=== PATIENT | female | born 1955 | race Caucasian/White ===

== ENCOUNTER 2017-06-21 12:53 | Inpatient (IN) | payer MEDICARE, MEDICAID ==
[~2017-06-21] VITALS: Ht 170.2 cm; Wt 130.2 kg
[~2017-06-21 12:53] MED LIST: CLNZ.5T; DARI7.5T2; FENO145T; GLPZ10TCR; KCL10CCR; LVT.05T; NF-DDA0.2T; PEROXICAM; ULTRAM ER
[2017-06-21] MEDS ORDERED: ASPIRIN 325 MG (5 GR) TABLET PO ONE (15:45)
[2017-06-21] MEDS ORDERED: HYDROcodone/APAP 5 MG/325 MG (LORTAB) TAB PO PRN (15:45)
[2017-06-21] MEDS ORDERED: ACETAMINOPHEN 500 MG TAB (TYLENOL) PO PRN (15:45)
[2017-06-21] MEDS ORDERED: ALPRAZolam 0.25 MG (XANAX) TAB PO PRN (15:45)
[2017-06-21] MEDS ORDERED: ONDANSETRON 4 MG/2 ML (SDV) Z0FRAN IVP PRN (15:45)
[2017-06-21] MEDS ORDERED: fentaNYL INJECTION 100 MCG/2 ML AMP IVP PRN (15:45)
[2017-06-21] MEDS ORDERED: DOCUSATE SODIUM 100 MG (COLACE) CAP PO PRN (15:45)
[2017-06-21 17:30] VITALS: BP 128/88
--- OUTSIDE RECORDS SUMMARY | 2017-06-21 17:42 | XMS REPORT ---
Author Author EDILIA JOHNSON [facility] eClinicalWorks Address Unknown Phone Unavailable Care Team Providers Care Skin Lap Bonder Name Role Phone EDILIA JOHNSON CP Unavailable Allergies No Known Allergies Problems Problem Type Condition Code Onset Dates Condition Status Problem Shortness of breath 786.05 Active Problem Esophageal reflux 530.81 Active Problem Other specified conditions influencing health status V49.89 Active Problem Restless legs syndrome [RLS] 333.94 Active Problem Unspecified arthropathy, site unspecified 716.90 Active Problem Chronic kidney disease (CKD) 585 Active Problem Unspecified myalgia and myositis 729.1 Active Problem Urinary tract infection, site not specified 599.0 Active Problem Generalized hyperhidrosis 780.8 Active Problem Palpitations 785.1 Active Assessment Adjustment disorder with mixed anxiety and depressed mood F43.23 Active Problem Proteinuria 791.0 Active Problem Polyneuropathy in diabetes 357.2 Active Problem Obesity, unspecified 278.00 Active Medications No Known Medications Procedures Procedure Coding System Code Date Psych diagnostic evaluation, new patient CPT-4 33959 Dec 24, 2014 Results No Known Results Summary Purpose eClinicalWorks Submission
--- OUTSIDE RECORDS SUMMARY | 2017-06-21 17:43 | XMS REPORT | Continuity of Care Document ---
Author Author [facility] Address Unknown Phone Unavailable Allergies Active Description Code Type Severity Reaction Onset Reported/Identified Relationship to Patient Clinical Status Yes lovastatin Drug Allergy N/A N/A 05/20/2008 Yes lovastatin Drug Allergy 05/20/2008 Yes ibuprofen Drug Allergy N/A N/A 10/04/2009 Yes piroxicam Drug Allergy N/A N/A 10/04/2009 Yes ibuprofen Drug Allergy 10/04/2009 Yes piroxicam Drug Allergy 10/04/2009 Yes Actos 30 mg tablet Drug Allergy N/A N/A 11/08/2011 Yes Actos 30 mg tablet Drug Allergy 11/08/2011 Medications There is no data. Problems Date Dx Coded Attending Type Code Diagnosis Diagnosed By 09/17/2007 TONY OLVERA DO 250.02 DIABETES MELLITUS POORLY CONTROLLED 09/17/2007 TONY OLVERA DO K 250.02 DIABETES MELLITUS POORLY CONTROLLED 09/17/2007 TONY OLVERA DO K 250.02 DIABETES MELLITUS POORLY CONTROLLED 09/17/2007 250.02 DIABETES MELLITUS POORLY CONTROLLED 09/17/2007 250.02 DIABETES MELLITUS POORLY CONTROLLED 09/17/2007 FUAD PATTERSON APRN 250.02 DIABETES MELLITUS POORLY CONTROLLED 09/17/2007 TONY OLVERA DO 250.02 DIABETES MELLITUS POORLY CONTROLLED 09/17/2007 TONY OLVERA DO K 250.02 DIABETES MELLITUS POORLY CONTROLLED 09/17/2007 TONIE OLVERA DOA K 250.02 DIABETES MELLITUS POORLY CONTROLLED 09/17/2007 TONIE OLVERA DOA K 250.02 DIABETES MELLITUS POORLY CONTROLLED 09/17/2007 TONIE OLVERA DOA K 250.02 DIABETES MELLITUS POORLY CONTROLLED 09/17/2007 TONIE OLVERA DOA K 250.02 DIABETES MELLITUS POORLY CONTROLLED 09/17/2007 TONIE OLVERA DOA K 250.02 DIABETES MELLITUS POORLY CONTROLLED 09/17/2007 TONIE OLVERA DOA K 250.02 DIABETES MELLITUS POORLY CONTROLLED 11/19/2007 TONY OLVERA DO 724.5 Backache Unspecified 11/19/2007 OLVERA DO, TONY K 724.5 Backache Unspecified 11/19/2007 OLVERA DO, TONY K 724.5 Backache Unspecified 11/19/2007 724.5 Backache Unspecified 11/19/2007 724.5 Backache Unspecified 11/19/2007 LEONARDO PAZ, FUAD A 724.5 Backache Unspecified 11/19/2007 OLVERA DO, TONY K 724.5 Backache Unspecified 11/19/2007 OLVERA DO, TONY K 724.5 Backache Unspecified 11/19/2007 OLVERA DO, TONY K 724.5 Backache Unspecified 11/19/2007 OLVERA DO, TONY K 724.5 Backache Unspecified 11/19/2007 OLVERA DO, TONY K 724.5 Backache Unspecified 11/19/2007 OLVERA DO, TONY K 724.5 Backache Unspecified 11/19/2007 OLVERA DO, TONY K 724.5 Backache Unspecified 11/19/2007 OLVERA DO, TONY K 724.5 Backache Unspecified 01/21/2008 OLVERA DO, TONY K 599.0 Urinary Tract Infection 01/21/2008 OLVERA DO, TONY K 599.0 Urinary Tract Infection 01/21/2008 OLVERA DO, TONY K 599.0 Urinary Tract Infection 01/21/2008 599.0 Urinary Tract Infection 01/21/2008 599.0 Urinary Tract Infection 01/21/2008 LEONARDO PAZ, FUAD A 599.0 Urinary Tract Infection 01/21/2008 OLVERA DO, TONY K 599.0 Urinary Tract Infection 01/21/2008 OLVERA DO, TONY K 599.0 Urinary Tract Infection 01/21/2008 OLVERA DO, TONY K 599.0 Urinary Tract Infection 01/21/2008 OLVERA DO, TONY K 599.0 Urinary Tract Infection 01/21/2008 OLVERA DO, TONY K 599.0 Urinary Tract Infection 01/21/2008 OLVERA DO, TONY K 599.0 Urinary Tract Infection 01/21/2008 OLVERA DO, TONY K 599.0 Urinary Tract Infection 01/21/2008 OLVERA DO, TONY K 599.0 Urinary Tract Infection 02/25/2008 OLVERA DO, TONY K 682.9 Cellulitis 02/25/2008 OLVERA DO, TONY K 682.9 Cellulitis 02/25/2008 OLVERA DO, TONY K 682.9 Cellulitis 02/25/2008 682.9 Cellulitis 02/25/2008 682.9 Cellulitis 02/25/2008 FUAD PATTERSON APRN A 682.9 Cellulitis 02/25/2008 OLVERA DO, TONY K 682.9 Cellulitis 02/25/2008 OLVERA DO, TONY K 682.9 Cellulitis 02/25/2008 OLVERA DO, TONY K 682.9 Cellulitis 02/25/2008 OLVERA DO, TONY K 682.9 Cellulitis 02/25/2008 OLVERA DO, TONY K 682.9 Cellulitis 02/25/2008 OLVERA DO, TONY K 682.9 Cellulitis 02/25/2008 OLVERA DO, TONY K 682.9 Cellulitis 02/25/2008 OLVERA DO, TONY K 682.9 Cellulitis 02/29/2008 OLVERA DO, TONY K V58.31 Wound Dressing 02/29/2008 OLVERA DO, TONY K V58.31 Wound Dressing 02/29/2008 OLVERA DO, TONY K V58.31 Wound Dressing 02/29/2008 V58.31 Wound Dressing 02/29/2008 V58.31 Wound Dressing 02/29/2008 FUAD PATTERSON APRN A V58.31 Wound Dressing 02/29/2008 OLVERA DO, TONY K V58.31 Wound Dressing 02/29/2008 OLVERA DO, TONY K V58.31 Wound Dressing 02/29/2008 OLVERA DO, TONY K V58.31 Wound Dressing 02/29/2008 OLVERA DO, TONY K V58.31 Wound Dressing 02/29/2008 OLVERA DO, TONY K V58.31 Wound Dressing 02/29/2008 OLVERA DO, TONY K V58.31 Wound Dressing 02/29/2008 OLVERA DO, TONY K V58.31 Wound Dressing 02/29/2008 OLVERA DO, TONY K V58.31 Wound Dressing 07/10/2008 OLVERA DO, TONY K 380.10 Otitis Externa - Right Ear 07/10/2008 OLVERA DO, TONY K 388.70 Earache Right Ear 07/10/2008 OLVERA DO, TONY K 380.10 Otitis Externa - Right Ear 07/10/2008 OLVERA DO, TONY K 388.70 Earache Right Ear 07/10/2008 OLVERA DO, TONY K 380.10 Otitis Externa - Right Ear 07/10/2008 OLVERA DO, TONY K 388.70 Earache Right Ear 07/10/2008 380.10 Otitis Externa - Right Ear 07/10/2008 388.70 Earache Right Ear 07/10/2008 380.10 Otitis Externa - Right Ear 07/10/2008 388.70 Earache Right Ear 07/10/2008 LEONARDO MANAGER FITNESS, FUAD A 380.10 Otitis Externa - Right Ear 07/10/2008 LEONARDO MANAGER FITNESS, FUAD A 388.70 Earache Right Ear 07/10/2008 OLVERA DO, TONY K 380.10 Otitis Externa - Right Ear 07/10/2008 OLVERA DO, TONY K 388.70 Earache Right Ear 07/10/2008 OLVERA DO, TONY K 380.10 Otitis Externa - Right Ear 07/10/2008 OLVERA DO, TONY K 388.70 Earache Right Ear 07/10/2008 OLVERA DO, TONY K 380.10 Otitis Externa - Right Ear 07/10/2008 OLVERA DO, TONY K 388.70 Earache Right Ear 07/10/2008 OLVERA DO, TONY K 380.10 Otitis Externa - Right Ear 07/10/2008 OLVERA DO, TONY K 388.70 Earache Right Ear 07/10/2008 OLVERA DO, TONY K 380.10 Otitis Externa - Right Ear 07/10/2008 OLVERA DO, TONY K 388.70 Earache Right Ear 07/10/2008 OLVERA DO, TONY K 380.10 Otitis Externa - Right Ear 07/10/2008 OLVERA DO, TONY K 388.70 Earache Right Ear 07/10/2008 OLVERA DO, TONY K 380.10 Otitis Externa - Right Ear 07/10/2008 OLVERA DO, TONY K 388.70 Earache Right Ear 07/10/2008 OLVERA DO, TONY K 380.10 Otitis Externa - Right Ear 07/10/2008 OLVERA DO, TONY K 388.70 Earache Right Ear 08/20/2008 OLVERA DO, TONY K 244.9 HYPOTHYROIDISM 08/20/2008 OLVERA DO, TONY K 244.9 HYPOTHYROIDISM 08/20/2008 OLVERA DO, TONY K 244.9 HYPOTHYROIDISM 08/20/2008 244.9 HYPOTHYROIDISM 08/20/2008 244.9 HYPOTHYROIDISM 08/20/2008 LEONARDO PAZ FUAD A 244.9 HYPOTHYROIDISM 08/20/2008 OLVERA DO, TONY K 244.9 HYPOTHYROIDISM 08/20/2008 OLVERA DO, TONY K 244.9 HYPOTHYROIDISM 08/20/2008 OLVERA DO, TONY K 244.9 HYPOTHYROIDISM 08/20/2008 OLVERA DO, TONY K 244.9 HYPOTHYROIDISM 08/20/2008 OLVERA DO, TONY K 244.9 HYPOTHYROIDISM 08/20/2008 OLVERA DO, TONY K 244.9 HYPOTHYROIDISM 08/20/2008 OLVERA DO, TONY K 244.9 HYPOTHYROIDISM 08/20/2008 OLVERA DO, TONY K 244.9 HYPOTHYROIDISM 02/11/2009 OLVERA DO, TONY K 250.00 DIABETES MELLITUS 02/11/2009 OLVERA DO, TONY K 250.00 DIABETES MELLITUS 02/11/2009 OLVERA DO, TONY K 250.00 DIABETES MELLITUS POORLY CONTROLLED 02/11/2009 250.00 DIABETES MELLITUS POORLY CONTROLLED 02/11/2009 250.00 DIABETES MELLITUS POORLY CONTROLLED 02/11/2009 FUAD PATTERSON APRN A 250.00 DIABETES MELLITUS POORLY CONTROLLED 02/11/2009 OLVERA DO, TONY K 250.00 DIABETES MELLITUS POORLY CONTROLLED 02/11/2009 OLVERA DO, TONY K 250.00 DIABETES MELLITUS POORLY CONTROLLED 02/11/2009 OLVERA DO, TONY K 250.00 DIABETES MELLITUS POORLY CONTROLLED 02/11/2009 OLVERA DO, TONY K 250.00 DIABETES MELLITUS POORLY CONTROLLED 02/11/2009 OLVERA DO, TONY K 250.00 DIABETES MELLITUS POORLY CONTROLLED 02/11/2009 OLVERA DO, TONY K 250.00 DIABETES MELLITUS POORLY CONTROLLED 02/11/2009 OLVERA DO, TONY K 250.00 DIABETES MELLITUS POORLY CONTROLLED 02/11/2009 OLVERA DO, TONY K 250.00 DIABETES MELLITUS 04/23/2009 OLVERA DO, TONY K 480.8 Pneumonia Due To Other Virus Not Elsewhere Classified 04/23/2009 OLVERA DO, TONY K 780.6 FEVER 04/23/2009 OLVERA DO, TONY K 786.2 Cough 04/23/2009 OLVERA DO, TONY K 480.8 Pneumonia Due To Other Virus Not Elsewhere Classified 04/23/2009 OLVERA DO, TONY K 780.6 FEVER 04/23/2009 OLVERA DO, TONY K 786.2 Cough 04/23/2009 OLVERA DO, TONY K 480.8 Pneumonia Due To Other Virus Not Elsewhere Classified 04/23/2009 OLVERA DO, TONY K 780.6 FEVER 04/23/2009 OLVERA DO, TONY K 786.2 Cough 04/23/2009 480.8 Pneumonia Due To Other Virus Not Elsewhere Classified 04/23/2009 780.6 FEVER 04/23/2009 786.2 Cough 04/23/2009 480.8 Pneumonia Due To Other Virus Not Elsewhere Classified 04/23/2009 780.6 FEVER 04/23/2009 786.2 Cough 04/23/2009 LEONARDO MANAGER FITNESS, FUAD A 480.8 Pneumonia Due To Other Virus Not Elsewhere Classified 04/23/2009 LEONARDO MANAGER FITNESS, FUAD A 780.6 FEVER 04/23/2009 LEONARDO MANAGER FITNESS, FUAD A 786.2 Cough 04/23/2009 OLVERA DO, TONY K 480.8 Pneumonia Due To Other Virus Not Elsewhere Classified 04/23/2009 OLVERA DO, TONY K 780.6 FEVER 04/23/2009 OLVERA DO, TONY K 786.2 Cough 04/23/2009 OLVERA DO, TONY K 480.8 Pneumonia Due To Other Virus Not Elsewhere Classified 04/23/2009 OLVERA DO, TONY K 780.6 FEVER 04/23/2009 OLVERA DO, TONY K 786.2 Cough 04/23/2009 OLVERA DO, TONY K 480.8 Pneumonia Due To Other Virus Not Elsewhere Classified 04/23/2009 OLVERA DO, TONY K 780.6 FEVER 04/23/2009 OLVERA DO, TONY K 786.2 Cough 04/23/2009 OLVERA DO, TONY K 480.8 Pneumonia Due To Other Virus Not Elsewhere Classified 04/23/2009 OLVERA DO, TONY K 780.6 FEVER 04/23/2009 OLVERA DO, TONY K 786.2 Cough 04/23/2009 OLVERA DO, TONY K 480.8 Pneumonia Due To Other Virus Not Elsewhere Classified 04/23/2009 OLVERA DO, TONY K 780.6 FEVER 04/23/2009 OLVERA DO, TONY K 786.2 Cough 04/23/2009 OLVERA DO, TONY K 480.8 Pneumonia Due To Other Virus Not Elsewhere Classified 04/23/2009 OLVERA DO, TONY K 780.6 FEVER 04/23/2009 OLVERA DO, TONY K 786.2 Cough 04/23/2009 OLVERA DO, TONY K 480.8 Pneumonia Due To Other Virus Not Elsewhere Classified 04/23/2009 OLVERA DO, TONY K 780.6 FEVER 04/23/2009 OLVERA DO, TONY K 786.2 Cough 04/23/2009 OLVERA DO, TONY K 480.8 Pneumonia Due To Other Virus Not Elsewhere Classified 04/23/2009 OLVERA DO, TONY K 780.6 FEVER 04/23/2009 OLVERA DO, TONY K 786.2 Cough 05/21/2009 OLVERA DO, TONY K 788.41 Urinary Frequency Increased 05/21/2009 OLVERA DO, TONY K 788.41 Urinary Frequency Increased 05/21/2009 OLVERA DO, TONY K 788.41 Urinary Frequency Increased 05/21/2009 788.41 Urinary Frequency Increased 05/21/2009 788.41 Urinary Frequency Increased 05/21/2009 FUAD PATTERSON APRN 788.41 Urinary Frequency Increased 05/21/2009 OLVERA DO, TONY K 788.41 Urinary Frequency Increased 05/21/2009 OLVERA DO, TONY K 788.41 Urinary Frequency Increased 05/21/2009 OLVERA DO, TONY K 788.41 Urinary Frequency Increased 05/21/2009 OLVERA DO, TONY K 788.41 Urinary Frequency Increased 05/21/2009 OLVERA DO, TONY K 788.41 Urinary Frequency Increased 05/21/2009 OLVERA DO, TONY K 788.41 Urinary Frequency Increased 05/21/2009 OLVERA DO, TONY K 788.41 Urinary Frequency Increased 05/21/2009 OLVERA DO, TONY K 788.41 Urinary Frequency Increased 06/10/2009 OLVERA DO, TONY K 250.8 ULCER DIABETIC LOWER LIMB ALL 06/10/2009 OLVERA DO, TONY K 788.30 Urinary Loss Of Control 06/10/2009 OLVERA DO, TOYN K 788.63 Feelings Of Urinary Urgency 06/10/2009 OLVERA DO, TONY K 250.8 ULCER DIABETIC LOWER LIMB ALL 06/10/2009 OLVERA DO, TONY K 788.30 Urinary Loss Of Control 06/10/2009 OLVERA DO, TONY K 788.63 Feelings Of Urinary Urgency 06/10/2009 OLVERA DO, TONY K 250.8 ULCER DIABETIC LOWER LIMB ALL 06/10/2009 OLVERA DO, TONY K 788.30 Urinary Loss Of Control 06/10/2009 OLVERA DO, TONY K 788.63 Feelings Of Urinary Urgency 06/10/2009 250.8 ULCER DIABETIC LOWER LIMB ALL 06/10/2009 788.30 Urinary Loss Of Control 06/10/2009 788.63 Feelings Of Urinary Urgency 06/10/2009 250.8 ULCER DIABETIC LOWER LIMB ALL 06/10/2009 788.30 Urinary Loss Of Control 06/10/2009 788.63 Feelings Of Urinary Urgency 06/10/2009 LEONARDO MANAGER FITNESS, FUAD A 250.8 ULCER DIABETIC LOWER LIMB ALL 06/10/2009 LEONARDO MANAGER FITNESS, FUAD A 788.30 Urinary Loss Of Control 06/10/2009 LEONARDO MANAGER FITNESS, FUAD A 788.63 Feelings Of Urinary Urgency 06/10/2009 OLVERA DO, TONY K 250.8 ULCER DIABETIC LOWER LIMB ALL 06/10/2009 OLVERA DO, TONY K 788.30 Urinary Loss Of Control 06/10/2009 OLVERA DO, TONY K 788.63 Feelings Of Urinary Urgency 06/10/2009 OLVERA DO, TONY K 250.8 ULCER DIABETIC LOWER LIMB ALL 06/10/2009 OLEVRA DO, TONY K 788.30 Urinary Loss Of Control 06/10/2009 OLVERA DO, TONY K 788.63 Feelings Of Urinary Urgency 06/10/2009 OLVERA DO, TONY K 250.8 ULCER DIABETIC LOWER LIMB ALL 06/10/2009 OLVERA DO, TONY K 788.30 Urinary Loss Of Control 06/10/2009 OLVERA DO, TONY K 788.63 Feelings Of Urinary Urgency 06/10/2009 OLVERA DO, TONY K 250.8 ULCER DIABETIC LOWER LIMB ALL 06/10/2009 OLVERA DO, TONY K 788.30 Urinary Loss Of Control 06/10/2009 OLVERA DO, TONY K 788.63 Feelings Of Urinary Urgency 06/10/2009 OLVERA DO, TONY K 250.8 ULCER DIABETIC LOWER LIMB ALL 06/10/2009 OLVERA DO, TONY K 788.30 Urinary Loss Of Control 06/10/2009 OLVERA DO, TONY K 788.63 Feelings Of Urinary Urgency 06/10/2009 OLVERA DO, TONY K 250.8 ULCER DIABETIC LOWER LIMB ALL 06/10/2009 OLVEAR DO, TONY K 788.30 Urinary Loss Of Control 06/10/2009 OLVERA DO, TONY K 788.63 Feelings Of Urinary Urgency 06/10/2009 OLVERA DO, TONY K 250.8 ULCER DIABETIC LOWER LIMB ALL 06/10/2009 OLVERA DO, TONY K 788.30 Urinary Loss Of Control 06/10/2009 OLVERA DO, TONY K 788.63 Feelings Of Urinary Urgency 06/10/2009 OLVERA DO, TONY K 250.8 ULCER DIABETIC LOWER LIMB ALL 06/10/2009 OLVERA DO, TONY K 788.30 Urinary Loss Of Control 06/10/2009 OLVERA DO, TONY K 788.63 Feelings Of Urinary Urgency 06/25/2009 OLVERA DO, TONY K 250.60 DIABETES WITH NEUROLOGICAL MANIFESTATIONS, TYPE II OR UNSPECIFIED TYPE, NOT STATED UNCONTROLLED 06/25/2009 OLVERA DO, TONY K 757.39 POROKEROTOSIS 06/25/2009 OLVERA DO, TONY K 250.60 DIABETES WITH NEUROLOGICAL MANIFESTATIONS, TYPE II OR UNSPECIFIED TYPE, NOT STATED UNCONTROLLED 06/25/2009 OLVERA DO, TONY K 757.39 POROKEROTOSIS 06/25/2009 OLVERA DO, TONY K 250.60 DIABETES WITH NEUROLOGICAL MANIFESTATIONS, TYPE II OR UNSPECIFIED TYPE, NOT STATED UNCONTROLLED 06/25/2009 OLVERA DO, TONY K 757.39 POROKEROTOSIS 06/25/2009 250.60 DIABETES WITH NEUROLOGICAL MANIFESTATIONS, TYPE II OR UNSPECIFIED TYPE, NOT STATED UNCONTROLLED 06/25/2009 757.39 POROKEROTOSIS 06/25/2009 250.60 DIABETES WITH NEUROLOGICAL MANIFESTATIONS, TYPE II OR UNSPECIFIED TYPE, NOT STATED UNCONTROLLED 06/25/2009 757.39 POROKEROTOSIS 06/25/2009 FUAD PATTERSON APRN A 250.60 DIABETES WITH NEUROLOGICAL MANIFESTATIONS, TYPE II OR UNSPECIFIED TYPE, NOT STATED UNCONTROLLED 06/25/2009 FUAD PATTERSON APRN A 757.39 POROKEROTOSIS 06/25/2009 OLVERA DO, TONY K 250.60 DIABETES MELLITUS DIABETIC PERIPHERAL NEUROPATHY 06/25/2009 OLVERA DO, TONY K 757.39 POROKEROTOSIS 06/25/2009 OLVERA DO, TONY K 250.60 DIABETES MELLITUS DIABETIC PERIPHERAL NEUROPATHY 06/25/2009 OLVERA DO, TONY K 757.39 POROKEROTOSIS 06/25/2009 OLVERA DO, TONY K 250.60 DIABETES MELLITUS DIABETIC PERIPHERAL NEUROPATHY 06/25/2009 OLVERA DO, TONY K 757.39 POROKEROTOSIS 06/25/2009 OLVERA DO, TONY K 250.60 DIABETES MELLITUS DIABETIC PERIPHERAL NEUROPATHY 06/25/2009 OLVERA DO, TONY K 757.39 POROKEROTOSIS 06/25/2009 OLVERA DO, TONY K 250.60 DIABETES MELLITUS DIABETIC PERIPHERAL NEUROPATHY 06/25/2009 OLVERA DO, TONY K 757.39 POROKEROTOSIS 06/25/2009 OLVERA DO, TONY K 250.60 DIABETES MELLITUS DIABETIC PERIPHERAL NEUROPATHY 06/25/2009 OLVERA DO, TONY K 757.39 POROKEROTOSIS 06/25/2009 OLVERA DO, TONY K 250.60 DIABETES MELLITUS DIABETIC PERIPHERAL NEUROPATHY 06/25/2009 OLVERA DO, TONY K 757.39 POROKEROTOSIS 06/25/2009 OLVERA DO, TONY K 250.60 DIABETES WITH NEUROLOGICAL MANIFESTATIONS, TYPE II OR UNSPECIFIED TYPE, NOT STATED UNCONTROLLED 06/25/2009 OLVERA DO, TONY K 757.39 POROKEROTOSIS 10/11/2009 OLVERA DO, TONY K 585.9 CHRONIC KIDNEY DISEASE, UNSPECIFIED 10/11/2009 OLVERA DO, TONY K 791.0 Proteinuria 10/11/2009 OLVERA DO, TONY K 585.9 CHRONIC KIDNEY DISEASE, UNSPECIFIED 10/11/2009 OLVERA DO, TONY K 791.0 Proteinuria 10/11/2009 OLVERA DO, TONY K 585.9 CHRONIC RENAL FAILURE 10/11/2009 OLVERA DO, TONY K 791.0 Proteinuria 10/11/2009 585.9 CHRONIC RENAL FAILURE 10/11/2009 791.0 Proteinuria 10/11/2009 585.9 CHRONIC RENAL FAILURE 10/11/2009 791.0 Proteinuria 10/11/2009 LEONARDO MANAGER [employer], FUAD A 585.9 CHRONIC RENAL FAILURE 10/11/2009 LEONARDO MANAGER FITNESS, FUAD A 791.0 Proteinuria 10/11/2009 OLVERA DO, TONY K 585.9 CHRONIC RENAL FAILURE 10/11/2009 OLVERA DO, TONY K 791.0 Proteinuria 10/11/2009 OLVERA DO, TONY K 585.9 CHRONIC RENAL FAILURE 10/11/2009 OLVERA DO, TONY K 791.0 Proteinuria 10/11/2009 OLVERA DO, TONY K 585.9 CHRONIC RENAL FAILURE 10/11/2009 OLVERA DO, TONY K 791.0 Proteinuria 10/11/2009 OLVERA DO, TONY K 585.9 CHRONIC RENAL FAILURE 10/11/2009 OLVERA DO, TONY K 791.0 Proteinuria 10/11/2009 OLVERA DO, TONY K 585.9 CHRONIC RENAL FAILURE 10/11/2009 OLVERA DO, TONY K 791.0 Proteinuria 10/11/2009 OLVERA DO, TONY K 585.9 CHRONIC RENAL FAILURE 10/11/2009 OLVERA DO, TONY K 791.0 Proteinuria 10/11/2009 OLVERA DO, TONY K 585.9 CHRONIC RENAL FAILURE 10/11/2009 OLVERA DO, TONY K 791.0 Proteinuria 10/11/2009 OLVERA DO, TONY K 585.9 CHRONIC KIDNEY DISEASE, UNSPECIFIED 10/11/2009 OLVERA DO, TONY K 791.0 Proteinuria 10/12/2009 OLVERA DO, TONY K 250.40 NEPHROPATHY DIABETIC 10/12/2009 OLVERA DO, TONY K 250.40 NEPHROPATHY DIABETIC 10/12/2009 OLVERA DO, TONY K 250.40 NEPHROPATHY DIABETIC 10/12/2009 250.40 NEPHROPATHY DIABETIC 10/12/2009 250.40 NEPHROPATHY DIABETIC 10/12/2009 FUAD PATTERSON APRN 250.40 NEPHROPATHY DIABETIC 10/12/2009 OLVERA DO, TONY K 250.40 NEPHROPATHY DIABETIC 10/12/2009 OLVERA DO, TONY K 250.40 NEPHROPATHY DIABETIC 10/12/2009 OLVERA DO, TONY K 250.40 NEPHROPATHY DIABETIC 10/12/2009 OLVERA DO, TONY K 250.40 NEPHROPATHY DIABETIC 10/12/2009 OLVERA DO, TONY K 250.40 NEPHROPATHY DIABETIC 10/12/2009 OLVERA DO, TONY K 250.40 NEPHROPATHY DIABETIC 10/12/2009 OLVERA DO, TONY K 250.40 NEPHROPATHY DIABETIC 10/12/2009 OLVERA DO, TONY K 250.40 NEPHROPATHY DIABETIC 04/14/2010 OLVERA DO, TONY K 719.41 Shoulder Joint Pain 04/14/2010 OLVERA DO, TONY K 719.41 Shoulder Joint Pain 04/14/2010 OLVERA DO, TONY K 719.41 Shoulder Joint Pain 04/14/2010 719.41 Shoulder Joint Pain 04/14/2010 719.41 Shoulder Joint Pain 04/14/2010 FUAD PATTERSON APRN A 719.41 Shoulder Joint Pain 04/14/2010 OLVERA DO, TONY K 719.41 Shoulder Joint Pain 04/14/2010 OLVERA DO, TONY K 719.41 Shoulder Joint Pain 04/14/2010 OLVERA DO, TONY K 719.41 Shoulder Joint Pain 04/14/2010 OLVERA DO, TONY K 719.41 Shoulder Joint Pain 04/14/2010 OLVERA DO, TONY K 719.41 Shoulder Joint Pain 04/14/2010 OLVERA DO, TONY K 719.41 Shoulder Joint Pain 04/14/2010 OLVERA DO, TONY K 719.41 Shoulder Joint Pain 04/14/2010 OLVERA DO, TONY K 719.41 Shoulder Joint Pain 11/17/2010 OLVERA DO, TONY K 401.1 HYPERTENSION, BENIGN ESSENTIAL 11/17/2010 OLVERA DO, TONY K 401.1 HYPERTENSION, BENIGN ESSENTIAL 11/17/2010 OLVERA DO, TONY K 401.1 ESSENTIAL HYPERTENSION BENIGN 11/17/2010 401.1 ESSENTIAL HYPERTENSION BENIGN 11/17/2010 401.1 ESSENTIAL HYPERTENSION BENIGN 11/17/2010 LEONARDOBRENDA HERNANDEZNFUAD A 401.1 ESSENTIAL HYPERTENSION BENIGN 11/17/2010 OLVERA DO, TONY K 401.1 ESSENTIAL HYPERTENSION BENIGN 11/17/2010 OLVERA DO, TONY K 401.1 ESSENTIAL HYPERTENSION BENIGN 11/17/2010 OLVERA DO, TONY K 401.1 ESSENTIAL HYPERTENSION BENIGN 11/17/2010 OLVERA DO, TONY K 401.1 ESSENTIAL HYPERTENSION BENIGN 11/17/2010 OLVERA DO, TONY K 401.1 ESSENTIAL HYPERTENSION BENIGN 11/17/2010 OLVERA DO, TONY K 401.1 ESSENTIAL HYPERTENSION BENIGN 11/17/2010 OLVERA DO, TONY K 401.1 ESSENTIAL HYPERTENSION BENIGN 11/17/2010 OLVERA DO, TONY K 401.1 HYPERTENSION, BENIGN ESSENTIAL 01/20/2011 OLVERA DO, TONY K 780.4 DIZZINESS AND GIDDINESS 01/20/2011 OLVERA DO, TONY K 780.52 INSOMNIA UNSPECIFIED 01/20/2011 OLVERA DO, TONY K 780.4 DIZZINESS AND GIDDINESS 01/20/2011 OLVERA DO, TONY K 780.52 INSOMNIA UNSPECIFIED 01/20/2011 OLVERA DO, TONY K 780.4 DIZZINESS AND GIDDINESS 01/20/2011 OLVERA DO, TONY K 780.52 INSOMNIA UNSPECIFIED 01/20/2011 780.4 DIZZINESS AND GIDDINESS 01/20/2011 780.52 INSOMNIA UNSPECIFIED 01/20/2011 780.4 DIZZINESS AND GIDDINESS 01/20/2011 780.52 INSOMNIA UNSPECIFIED 01/20/2011 LEONARDO MANAGER FITNESSFUAD Quiñonez A 780.4 DIZZINESS AND GIDDINESS 01/20/2011 LEONARDO MANAGER FITNESS, FUAD A 780.52 INSOMNIA UNSPECIFIED 01/20/2011 OLVERA DO, TONY K 780.4 DIZZINESS AND GIDDINESS 01/20/2011 OLVERA DO, TONY K 780.52 INSOMNIA UNSPECIFIED 01/20/2011 OLVERA DO, TONY K 780.4 DIZZINESS AND GIDDINESS 01/20/2011 OLVERA DO, TONY K 780.52 INSOMNIA UNSPECIFIED 01/20/2011 OLVERA DO, TONY K 780.4 DIZZINESS AND GIDDINESS 01/20/2011 OLVERA DO, TONY K 780.52 INSOMNIA UNSPECIFIED 01/20/2011 OLVERA DO, TONY K 780.4 DIZZINESS AND GIDDINESS 01/20/2011 OLVERA DO, TONY K 780.52 INSOMNIA UNSPECIFIED 01/20/2011 OLVERA DO, TONY K 780.4 DIZZINESS AND GIDDINESS 01/20/2011 OLVERA DO, TONY K 780.52 INSOMNIA UNSPECIFIED 01/20/2011 OLVERA DO, TONY K 780.4 DIZZINESS AND GIDDINESS 01/20/2011 OLVERA DO, TONY K 780.52 INSOMNIA UNSPECIFIED 01/20/2011 OLVERA DO, TONY K 780.4 DIZZINESS AND GIDDINESS 01/20/2011 OLVERA DO, TONY K 780.52 INSOMNIA UNSPECIFIED 01/20/2011 OLVERA DO, TONY K 780.4 DIZZINESS AND GIDDINESS 01/20/2011 OLVERA DO, TONY K 780.52 INSOMNIA UNSPECIFIED 04/06/2011 OLVERA DO, TONY K 780.8 GENERALIZED HYPERHIDROSIS 04/06/2011 OLVERA DO, TONY K 780.8 GENERALIZED HYPERHIDROSIS 04/06/2011 OLVERA DO, TONY K 780.8 GENERALIZED HYPERHIDROSIS 04/06/2011 780.8 GENERALIZED HYPERHIDROSIS 04/06/2011 780.8 GENERALIZED HYPERHIDROSIS 04/06/2011 LEONARDO MANAGER FITNESSFUAD Quiñonez A 780.8 GENERALIZED HYPERHIDROSIS 04/06/2011 OLVERA DO, TONY K 780.8 GENERALIZED HYPERHIDROSIS 04/06/2011 OLVERA DO, TONY K 780.8 GENERALIZED HYPERHIDROSIS 04/06/2011 OLVERA DO, TONY K 780.8 GENERALIZED HYPERHIDROSIS 04/06/2011 OLVERA DO, TONY K 780.8 GENERALIZED HYPERHIDROSIS 04/06/2011 OLVERA DO, TONY K 780.8 GENERALIZED HYPERHIDROSIS 04/06/2011 OLVERA DO, TONY K 780.8 GENERALIZED HYPERHIDROSIS 04/06/2011 OLVERA DO, TONY K 780.8 GENERALIZED HYPERHIDROSIS 04/06/2011 OLVERA DO, TONY K 780.8 GENERALIZED HYPERHIDROSIS 07/17/2011 OLVERA DO, TONY K 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.0 MICROALBUMINURIA 07/17/2011 OLVERA DO, TONY K 791.0 MICROALBUMINURIA 07/17/2011 OLVERA DO, TONY K 791.0 MICROALBUMINURIA 07/17/2011 791.0 MICROALBUMINURIA 07/17/2011 791.0 MICROALBUMINURIA 07/17/2011 FUAD PATTERSON APRN 791.0 MICROALBUMINURIA 07/17/2011 OLVERA DO, TONY K 791.0 MICROALBUMINURIA 07/17/2011 OLVERA DO, TONY K 791.0 MICROALBUMINURIA 07/17/2011 OLVERA DO, TONY K 791.0 MICROALBUMINURIA 07/17/2011 OLVERA DO, TONY K 791.0 MICROALBUMINURIA 07/17/2011 OLVERA DO, TONY K 791.0 MICROALBUMINURIA 07/17/2011 OLVERA DO, TONY K 791.0 MICROALBUMINURIA 07/17/2011 OLVERA DO, TONY K 791.0 MICROALBUMINURIA 07/17/2011 OLVERA DO, TONY K 791.0 MICROALBUMINURIA 02/02/2012 OLVERA DO, TONY K 333.94 RESTLESS LEGS SYNDROME (RLS) 02/02/2012 OLVERA DO, TONY K 716.90 UNSPECIFIED ARTHROPATHY SITE UNSPECIFIED 02/02/2012 OLVERA DO, TONY K 333.94 RESTLESS LEGS SYNDROME (RLS) 02/02/2012 OLVERA DO, TONY K 716.90 ARTHRITIS 02/02/2012 333.94 RESTLESS LEGS SYNDROME (RLS) 02/02/2012 716.90 ARTHRITIS 02/02/2012 333.94 RESTLESS LEGS SYNDROME (RLS) 02/02/2012 716.90 ARTHRITIS 02/02/2012 FUAD PATTERSON APRN 333.94 RESTLESS LEGS SYNDROME (RLS) 02/02/2012 FUAD PATTERSON APRN 716.90 ARTHRITIS 02/02/2012 OLVERA DO, TONY K 333.94 RESTLESS LEGS SYNDROME (RLS) 02/02/2012 OLVERA DO, TONY K 716.90 ARTHRITIS 02/02/2012 OLVERA DO, TONY K 333.94 RESTLESS LEGS SYNDROME (RLS) 02/02/2012 OLVERA DO, TONY K 716.90 ARTHRITIS 02/02/2012 OLVERA DO, TONY K 333.94 RESTLESS LEGS SYNDROME (RLS) 02/02/2012 OLVERA DO, TONY K 716.90 ARTHRITIS 02/02/2012 OLVERA DO, TONY K 333.94 RESTLESS LEGS SYNDROME (RLS) 02/02/2012 OLVERA DO, TONY K 716.90 ARTHRITIS 02/02/2012 OLVERA DO, TONY K 333.94 RESTLESS LEGS SYNDROME (RLS) 02/02/2012 OLVERA DO, TONY K 716.90 ARTHRITIS 02/02/2012 OLVERA DO, TONY K 333.94 RESTLESS LEGS SYNDROME (RLS) 02/02/2012 OLVERA DO, TONY K 716.90 ARTHRITIS 02/02/2012 OLVERA DO, TONY K 333.94 RESTLESS LEGS SYNDROME (RLS) 02/02/2012 OLVERA DO, TONY K 716.90 ARTHRITIS 05/14/2012 OLVERA DO, TONY K 357.2 DIABETES MELLITUS DIABETIC PERIPHERAL NEUROPATHY 05/14/2012 357.2 DIABETES MELLITUS DIABETIC PERIPHERAL NEUROPATHY 05/14/2012 357.2 DIABETES MELLITUS DIABETIC PERIPHERAL NEUROPATHY 05/14/2012 FUAD PATTERSON APRN 357.2 DIABETES MELLITUS DIABETIC PERIPHERAL NEUROPATHY 05/14/2012 OLVERA DO, TONY K 357.2 DIABETES MELLITUS DIABETIC PERIPHERAL NEUROPATHY 05/14/2012 OLVERA DO, TONY K 357.2 DIABETES MELLITUS DIABETIC PERIPHERAL NEUROPATHY 05/14/2012 OLVERA DO, TONY K 357.2 DIABETES MELLITUS DIABETIC PERIPHERAL NEUROPATHY 05/14/2012 OLVERA DO, TONY K 357.2 DIABETES MELLITUS DIABETIC PERIPHERAL NEUROPATHY 05/14/2012 OLVERA DO, TONY K 357.2 DIABETES MELLITUS DIABETIC PERIPHERAL NEUROPATHY 05/14/2012 OLVERA DO, TONY K 357.2 DIABETES MELLITUS DIABETIC PERIPHERAL NEUROPATHY 05/14/2012 OLVERA DO, TONY K 357.2 DIABETES MELLITUS DIABETIC PERIPHERAL NEUROPATHY 11/29/2012 OLVERA DO, TONY K 585 CHRONIC RENAL FAILURE 11/29/2012 OLVERA DO, TONY K 585 CHRONIC RENAL FAILURE 11/29/2012 OLVERA DO, TONY K 585 CHRONIC RENAL FAILURE 11/29/2012 OLVERA DO, TONY K 585 CHRONIC RENAL FAILURE 11/29/2012 OLVERA DO, TONY K 585 CHRONIC RENAL FAILURE 11/29/2012 OLVERA DO, TONY K 585 CHRONIC RENAL FAILURE 11/29/2012 OLVERA DO, TONY K 585 CHRONIC RENAL FAILURE 05/05/2013 OLVERA DO, TONY K 530.81 GERD 05/05/2013 OLVERA DO, TONY K 599.0 URINARY TRACT INFECTION 05/05/2013 OLVERA DO, TONY K 729.1 MYALGIA AND MYOSITIS UNSPECIFIED 05/05/2013 OLVERA DO, TONY K 785.1 PALPITATIONS 05/05/2013 OLVERA DO, TONY K 530.81 GERD 05/05/2013 OLVERA DO, TONY K 599.0 URINARY TRACT INFECTION 05/05/2013 OLVERA DO, TONY K 729.1 MYALGIA AND MYOSITIS UNSPECIFIED 05/05/2013 OLVERA DO, TONY K 785.1 PALPITATIONS 05/05/2013 OLVERA DO, TONY K 530.81 GERD 05/05/2013 OLVERA DO, TONY K 599.0 URINARY TRACT INFECTION 05/05/2013 OLVERA DO, TONY K 729.1 MYALGIA AND MYOSITIS UNSPECIFIED 05/05/2013 OLVERA DO, TONY K 785.1 PALPITATIONS 05/05/2013 OLVERA DO, TONY K 530.81 GERD 05/05/2013 OLVERA DO, TONY K 599.0 URINARY TRACT INFECTION 05/05/2013 OLVERA DO, TONY K 729.1 MYALGIA AND MYOSITIS UNSPECIFIED 05/05/2013 OLVERA DO, TONY K 785.1 PALPITATIONS 05/12/2013 OLVERA DO, TONY K 278.00 OBESITY UNSPECIFIED 05/12/2013 OLVERA DO, TONY K 786.05 SHORTNESS OF BREATH 05/12/2013 OLVERA DO, TONY K V49.89 OTHER SPECIFIED CONDITIONS INFLUENCING HEALTH STATUS 05/12/2013 OLVERA DO, TONY K 278.00 OBESITY UNSPECIFIED 05/12/2013 OLVERA DO, TONY K 786.05 SHORTNESS OF BREATH 05/12/2013 OLVERA DO, TONY K V49.89 OTHER SPECIFIED CONDITIONS INFLUENCING HEALTH STATUS 05/12/2013 OLVREA DO, TONY K 278.00 OBESITY UNSPECIFIED 05/12/2013 OLVERA DO, TONY K 786.05 SHORTNESS OF BREATH 05/12/2013 TONY OLVERA DO V49.89 OTHER SPECIFIED CONDITIONS INFLUENCING HEALTH STATUS Procedures Code [place] [address] ROUTINE VENIPUNCTURE 01/25/2012 65141 A1C (IN-HOUSE) 01/25/2012 44221 MICRO ALBUMIN-IN HOUSE 01/25/2012 50113 CMP 01/25/2012 [id number] GFR CALC (RESULT ONLY) 01/25/2012 36881 MICROALBUMIN 01/26/2012 58471 TSH 01/26/2012 10347 ROUTINE VENIPUNCTURE 05/14/2012 91469 A1C (IN-HOUSE) 05/14/2012 84792 MICRO ALBUMIN-IN HOUSE 05/14/2012 70486 CMP 05/14/2012 [id number] GFR CALC (RESULT ONLY) 05/14/2012 23042 TSH 05/14/2012 43726 MICROALBUMIN 05/14/2012 21090 UA W/ CULTURE IF INDICATED 11/14/2012 57913 CULTURE URINE 11/17/2012 47540 ROUTINE VENIPUNCTURE 11/29/2012 07760 A1C (IN-HOUSE) 11/29/2012 48762 [facility] 11/29/2012 [id number] GFR CALC (RESULT ONLY) 11/29/2012 96845 TSH 11/29/2012 09644 ROUTINE VENIPUNCTURE 03/06/2013 74664 TSH 03/06/2013 03918 A1C (IN-HOUSE) 03/06/2013 [id number] GFR CALC (RESULT ONLY) 03/06/2013 22105 CMP 03/06/2013 37947 CULTURE URINE 05/05/2013 15281 UA W/ CULTURE IF INDICATED 05/05/2013 75246 TSH 08/01/2013 39989 CULTURE URINE 08/01/2013 33427 EKG, TRACING (IN-HOUSE) 08/01/2013 23557 ROUTINE VENIPUNCTURE 08/01/2013 64003 UA LONG DIP 08/01/2013 74748 CBC 08/01/2013 [id number] GFR CALC (RESULT ONLY) 08/01/2013 96762 CMP 08/01/2013 96763 LIPID PANEL 08/01/2013 35063 MAGNESIUM 08/01/2013 Results Test Result Range Urinalysis - 06/21/17 14:22 Icotest N/A Negative Urine Volume Urine Volume Sufficient (10mL) Urine-Appearance Clear Clear Urine-Bacteria 2+ Urine-Bilirubin Negative Negative Urine-Blood Negative Negative Urine-Color Yellow Colorless-Lt. Yellow Urine-Epithelial Cells 0-5/HPF Urine-Glucose Trace Negative Urine-Ketones Negative Negative Urine-Leukocytes Trace Negative Urine-Nitrite Positive Negative Urine-Other Culture to follow Urine-pH 5.5 5-8.5 Urine-Protein Negative Negative Urine-Specific Penrose 1.025 1.000-1.030 Urine-WBC 10-20/HPF Urobilinogen 0.2 E.U./dL 0.2-1.0 Encounters ACCT No. Visit Date/Time Discharge Status Pt. Type Provider Facility Loc./Unit Complaint [id number] 08/01/2013 08:18:00 08/01/2013 23:59:59 CLS Outpatient TONY OLVERA DO [id number] 05/12/2013 10:34:00 05/12/2013 23:59:59 CLS Outpatient TONY OLVERA DO [id number] 05/05/2013 11:58:00 05/05/2013 23:59:59 CLS Outpatient TONY OLVERA DO [id number] 05/05/2013 11:58:00 05/05/2013 23:59:59 CLS Outpatient TONY OLVERA DO [id number] 03/06/2013 08:22:00 03/06/2013 23:59:59 CLS Outpatient TONY OLVERA DO [id number] 11/29/2012 09:21:00 11/29/2012 23:59:59 CLS Outpatient TONY OLVERA DO [id number] 11/29/2012 09:21:00 11/29/2012 23:59:59 CLS Outpatient TONY OLEVRA DO [id number] 11/14/2012 08:56:00 11/14/2012 23:59:59 CLS Outpatient MAME PATTERSON APRNJONH Alex [id number] 05/14/2012 11:07:00 05/14/2012 23:59:59 CLS Outpatient TONY OLVERA DO [id number] 02/02/2012 13:49:00 02/02/2012 23:59:59 CLS Outpatient TONY OLVERA DO [id number] 01/25/2012 10:08:00 01/25/2012 23:59:59 CLS Outpatient TONY OLVERA DO [id number] 10/20/2011 09:00:00 10/20/2011 23:59:59 CLS Outpatient TONY OLVERA DO [id number] 08/20/2012 08:22:00 Document Registration [id number] 05/14/2012 11:07:00 Document Registration [id number] 06/21/2017 14:15:00 Document Registration
--- NOTE | 2017-06-21 18:10 | Diagnostic Imaging Report ---
EXAMINATION: Chest radiograph, portable AP view. DATE: 06/21/2017 at 1752 hours. INDICATION: 62-year-old female, arrhythmia. History of congestive heart failure. COMPARISON: July 03, 2007. FINDINGS: There is cervical spine hardware noted. Heart size and mediastinal contours are unremarkable. There is no identified pneumothorax. There is no large pleural effusion. There is no identified focal airspace consolidation. IMPRESSION: No identified acute cardiopulmonary abnormality. Dictated by: Dictated on workstation # [id number]
[2017-06-21] MEDS ORDERED: meTOprolol 5 MG/5 ML (LOPRESSOR) VIAL ONE (18:19)
[2017-06-21] MEDS ORDERED: meTOprolol 5 MG/5 ML (LOPRESSOR) VIAL IV ONE (18:30)
[2017-06-21] MEDS ORDERED: HYDROcodone/APAP 5 MG/325 MG (LORTAB) TAB ONE (18:40)
[2017-06-21 18:45] LABS: BASOPHILS # (AUTO) 0.1 10^3/uL (0.0-0.1); BASOPHILS % (AUTO) 1 % (0-10); EOSINOPHILS # (AUTO) 0.3 10^3/uL (0.0-0.3); EOSINOPHILS % (AUTO) 4 % (0-10); HEMATOCRIT 39 % (35-52); HEMOGLOBIN 12.7 G/DL (11.5-16.0); LYMPHOCYTES # (AUTO) 2.8 X 10^3 (1.0-4.0); LYMPHOCYTES % (AUTO) 30 % (12-44); MEAN CORPUSCULAR HEMOGLOBIN 29 PG (25-34); MEAN CORPUSCULAR HGB CONC 33 G/DL (32-36); MEAN CORPUSCULAR VOLUME 86 FL (80-99); MEAN PLATELET VOLUME 10.1 FL (7.4-10.4); MONOCYTES # (AUTO) 0.7 X 10^3 (0.0-1.0); MONOCYTES % (AUTO) 7 % (0-12); NEUTROPHILS # (AUTO) 5.6 X 10^3 (1.8-7.8); NEUTROPHILS % (AUTO) 59 % (42-75); PLATELET COUNT 358 10^3/uL (130-400); RED BLOOD COUNT 4.46 10^6/uL (4.35-5.85); WHITE BLOOD COUNT 9.5 10^3/uL (4.3-11.0)
[2017-06-21] MEDS ORDERED: ENOXAPARIN 100 MG/1 ML (LOVENOX) SYR SC SCH (18:45)
--- NOTE | 2017-06-21 18:48 | Consultation-Cardiology ---
HPI-Cardiology Cardiology Consultation Date of Consultation 06/21/17 Date of Admission Time Seen by Provider: 18:43 Indication: atrial fibrillation HPI 62-year-old lady with history of diabetes mellitus, hypertension, hyperlipidemia. Has been having episode of palpitation and dizziness with lightheadedness and diaphoresis occurring once every few weeks lasting for 10- 15 minutes. Over the past 3 days she's been having more frequent episodes of palpitation and feeling lightheaded and dizzy. Went to the urgent care then to [facility] emergency room and noted to be in paroxysmal atrial fibrillation with rapid ventricular response. Noted to have mild elevation troponin. Denied any chest pain. Denied any syncope, admitted having episode of diaphoresis and lightheadedness. Denied any fever or chills. Upon my evaluation she was laying down comfortably, during her stay for the first hour in the hospital I noted that she was having multiple episodes of paroxysmal atrial fibrillation, occasional PVCs. Was a symptomatically during those episode while laying down in bed. Home Medications & Allergies Allergies: Coded Allergies: No Known Drug Allergies (Verified Allergy, Unknown, 04/28/08) Home Medication List Reviewed: Yes LKP-Vscacf-Cbiwvn Hx Patient Social History Recent Foreign Travel: No Past Medical History Past medical history as discussed below Family Medical History Family Medical Hx Noncontributory to her current condition Constitutional: see HPI, dizziness, malaise, weakness EENTM: see HPI, no symptoms reported Respiratory: see HPI; No cough; dyspnea on exertion; No hemoptysis, No orthopnea, No phlegm, No short of breath, No stridor, No wheezing, No other Cardiovascular: see HPI; No chest pain, No edema, No Hx of Intervention; palpitations; No syncope, No vascular heart diseas, No other Gastrointestinal: no symptoms reported, see HPI Genitourinary: see HPI Musculoskeletal: see HPI, joint pain, neck pain Skin: no symptoms reported, see HPI Psychiatric/Neurological: No Symptoms Reported, See HPI Reviewed Test Results Reviewed Test Results Lab Labs are pending Physical Exam Vital Signs Capillary Refill : General Appearance: No Apparent Distress, WD/WN Eyes: Bilateral Eye Normal Inspection, Bilateral Eye PERRL, Bilateral Eye EOMI HEENT: PERRL/EOMI, TMs Normal, Normal ENT Inspection, Pharynx Normal Neck: Full Range of Motion, Normal Inspection, Non Tender, Supple, Carotid Bruit Respiratory: Chest Non Tender, Lungs Clear, Normal Breath Sounds, No Accessory Muscle Use, No Respiratory Distress Cardiovascular: Regular Rate, Rhythm, No Edema, No Gallop, No JVD, No Murmur, Normal Peripheral Pulses Gastrointestinal: Normal Bowel Sounds, No Organomegaly, No Pulsatile Mass, Non Tender, Soft Back: Normal Inspection, No CVA Tenderness, No Vertebral Tenderness Extremity: Normal Capillary Refill, Normal Inspection, Normal Range of Motion, Non Tender, No Calf Tenderness, No Pedal Edema Neurologic/Psychiatric: Alert, Oriented x3, No Motor/Sensory Deficits, Normal Mood/Affect Skin: Normal Color, Warm/Dry Lymphatic: No Adenopathy A/P-Cardiology Admission Diagnosis Paroxysmal atrial fibrillation Hypertension Hyperlipidemia Diabetes mellitus Assessment/Plan Paroxysmal atrial fibrillation, multiple episodes has been occurring more frequently recently, symptomatic, patient was transferred from [facility] [place] to the telemetry unit. I gave her 5 mg IV Lopressor in addition I started on Toprol- XL 25 mg daily and Lovenox and I will monitor her overnight. Sources of atrial fibrillation are unknown. We'll evaluate thyroid function test, high risk for sleep apnea. Evaluate her electrolytes. Questionable elevation in troponin level. I will monitor her troponin level and the trend and evaluate 2-D echo cardiogram. Hypertension, started on beta blockers, hold losartan for now and monitor Hyperlipidemia, maintained on fenofibrate, I will evaluate lipid profile in the morning. Next Diabetes mellitus, followed and managed by primary care physician Chronic renal insufficiency, monitor renal function closely Arthritic pain and arthritis, knee pain and back pain and neck pain. Maintained on tramadol, discussed the risk of GI bleed with her current medication I will start her on PPI for GI prophylaxis BMI is 43, we discussed weight loss and exercise High risk for underlying sleep apnea, recommended sleep study, reported that she had sleep study in the remote past over 15 years ago. It will need to done again History of restless leg syndrome History of anxiety. EDDIE HURT MD Jun 21, 2017 18:48
[2017-06-21 19:00] VITALS: BP 142/83
[2017-06-21] MEDS ORDERED: PANTOPRAZOLE 40 MG (PROTONIX) TAB PO NR (19:00)
[2017-06-21 19:12] LABS: ALANINE AMINOTRANSFERASE 16 U/L (0-55); ALKALINE PHOSPHATASE 42 U/L (40-136); BILIRUBIN,TOTAL 0.4 MG/DL (0.1-1.0); BUN/CREATININE RATIO 28; CALCIUM 9.6 MG/DL (8.5-10.1); CARBON DIOXIDE 24 MMOL/L (21-32); CHLORIDE 105 MMOL/L (98-107); CREATININE SERUM 1.16 MG/DL (0.60-1.30); GFR ESTIMATED 47; GLUCOSE 154 MG/DL (70-105); POTASSIUM 4.7 MMOL/L (3.6-5.0); SODIUM 136 MMOL/L (135-145); TOTAL PROTEIN 7.4 GM/DL (6.4-8.2)
[2017-06-21] MEDS ORDERED: ENOXAPARIN 120 MG/0.8 ML SC SCH (19:30)
[2017-06-21 20:00] VITALS: BP 134/79
[2017-06-21] MEDS ORDERED: RT-ALBUTEROL/IPRATROPIUM 3 ML (DUONEB) VIAL INH PRN (20:45)
[2017-06-21] MEDS: ENOXAPARIN 300 MG/3 ML (LOVENOX) MULTI-DOSE VIAL SQ SCH (20:49)
[2017-06-21 21:00] VITALS: BP 143/92
[2017-06-21] MEDS ORDERED: ATORVASTATIN 40 MG (LIPITOR) TABLET PO SCH (21:00)
[2017-06-21 22:00] VITALS: BP 134/58
[2017-06-21 23:00] VITALS: BP 124/64
[2017-06-22] VITALS (11 sets, daily range): BP systolic 124–147; BP diastolic 71–88
[2017-06-22 03:40] LABS: BASOPHILS # (AUTO) 0.1 10^3/uL (0.0-0.1); BASOPHILS % (AUTO) 1 % (0-10); EOSINOPHILS # (AUTO) 0.4 10^3/uL (0.0-0.3); EOSINOPHILS % (AUTO) 5 % (0-10); HEMATOCRIT 42 % (35-52); HEMOGLOBIN 13.7 G/DL (11.5-16.0); LYMPHOCYTES # (AUTO) 3.7 X 10^3 (1.0-4.0); LYMPHOCYTES % (AUTO) 41 % (12-44); MEAN CORPUSCULAR HEMOGLOBIN 28 PG (25-34); MEAN CORPUSCULAR HGB CONC 33 G/DL (32-36); MEAN CORPUSCULAR VOLUME 86 FL (80-99); MEAN PLATELET VOLUME 10.6 FL (7.4-10.4); MONOCYTES # (AUTO) 0.5 X 10^3 (0.0-1.0); MONOCYTES % (AUTO) 6 % (0-12); NEUTROPHILS # (AUTO) 4.2 X 10^3 (1.8-7.8); NEUTROPHILS % (AUTO) 47 % (42-75); PLATELET COUNT 379 10^3/uL (130-400); RED BLOOD COUNT 4.83 10^6/uL (4.35-5.85); RED CELL DISTRIBUTION WIDTH 13.8 % (10.0-14.5)
[2017-06-22 04:19] LABS: ALANINE AMINOTRANSFERASE 13 U/L (0-55); ALBUMIN 3.9 GM/DL (3.2-4.5); ALKALINE PHOSPHATASE 45 U/L (40-136); BILIRUBIN,TOTAL 0.4 MG/DL (0.1-1.0); BUN/CREATININE RATIO 27; CALCIUM 9.5 MG/DL (8.5-10.1); CARBON DIOXIDE 23 MMOL/L (21-32); CHLORIDE 104 MMOL/L (98-107); CREATININE SERUM 1.17 MG/DL (0.60-1.30); GFR ESTIMATED 47; GLUCOSE 175 MG/DL (70-105); POTASSIUM 4.2 MMOL/L (3.6-5.0); SODIUM 137 MMOL/L (135-145); TOTAL PROTEIN 7.2 GM/DL (6.4-8.2)
[2017-06-22] MEDS: inSUlin ASPART (NovoLOG) 1 UNIT/0.01 ML (CHARGE PER UNIT) SQ SCH ×2 (04:22→11:26)
[2017-06-22] MEDS ORDERED: PANTOPRAZOLE 40 MG (PROTONIX) TAB PO SCH (07:00)
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
[2017-06-22] MEDS: ENOXAPARIN 300 MG/3 ML (LOVENOX) MULTI-DOSE VIAL SQ SCH (08:18)
[2017-06-22] MEDS ORDERED: ASPIRIN 325 MG (5 GR) TABLET PO SCH (09:00)
[2017-06-22] MEDS ORDERED: LOSA50TA36 PO (10:17)
[2017-06-22] MEDS ORDERED: PIOG30TA26 PO (10:17)
[2017-06-22] MEDS ORDERED: IMIP50TA4 PO (10:17)
[2017-06-22] MEDS ORDERED: BACL10TA PO (10:17)
[2017-06-22] MEDS ORDERED: OXYB15TA PO (10:17)
[2017-06-22] MEDS ORDERED: TRAM50TA2 PO (10:17)
[2017-06-22] MEDS ORDERED: LEVO175T5 PO (10:17)
[2017-06-22] MEDS ORDERED: SIME80TA57 PO (10:17)
[2017-06-22] MEDS ORDERED: SITA100T12 PO (10:17)
[2017-06-22] MEDS ORDERED: ASPI-983 PO (10:17)
[2017-06-22] MEDS ORDERED: ROPI1TAB2 PO (10:17)
[2017-06-22] MEDS ORDERED: FENO145T37 PO (10:17)
--- NOTE | 2017-06-22 11:21 | Short Stay Summary-Hospitalist ---
History of Present Illness HPI/Chief Complaint CC: Dizziness with palpitations HPI: This is a 62-year-old white female clinic patient of Chana Davila who reported worsening dizziness yesterday with some palpitations was found to be in presumed atrial fibrillation with rapid ventricular response that had spontaneously converted to normal sinus rhythm at [facility] ER and with the elevated BNP and other risk factors the provider felt like it would be worth her effort to go to via [facility] for higher level of care and cardiology and pulmonology consultations. She has been stable since admission and on telemetry it did confirm the paroxysmal atrial fibrillation but currently she is doing very well has received cardiology medications and echocardiogram and has remained stable during the whole entire hospital stay. She will see Dr. Palacios as an outpatient for presumed sleep apnea treatment and Dr. Currie will establish as an outpatient for her cardiology care. She denies any pain no dizziness at this current time and she lives with her sister. She does not smoke and has no other issues at this current time and wants to go home. Source: patient Exam Limitations: no limitations Date Seen 06/22/17 Time Seen by Provider: 10:30 Attending Physician Roopa Esparza Kimberly J Arnp Referring Physician Date of Admission Jun 21, 2017 at 17:30 Home Medications & Allergies Home Medications Reviewed patient Home Medication Reconciliation performed by pharmacy medication reconciliations quality assurance/r&d lab technician and/or nursing. Patients Allergies have been reviewed. Allergies Allergies Coded Allergies No Known Drug Allergies (Verified Allergy, Unknown, 04/28/08) Past Vsbrkqc-Vhrwxi-Cimpsl Hx Past Med/Social Hx: Reviewed Nursing Past Med/Soc Hx, Reviewed and Corrections made Patient Social History Marrital Status: single Employed/Student: retired ([employer]) Alcohol Use: Occasionally Uses Recreational Drug Use: No Smoking Status: Never a Smoker Physical Abuse Screen: No Sexual Abuse: No Recent Foreign Travel: No Contact w/other who traveled: No Recent Hopitalizations: No Seasonal Allergies Seasonal Allergies: No Past Medical History Surgeries: Gallbladder, Hysterectomy, Orthopedic (cervical spine fracture 2001) Respiratory: Sleep Apnea (presumed on my assessment during this admit) Currently Using CPAP: No Currently Using BIPAP: No Cardiac: Atrial Fibrillation (this admit dx confirmed PAF), High Cholesterol, Hypertension Reproductive: No Musculoskeletal: Arthritis, Chronic Back Pain, Spasms HEENT: Macular Degeneration Psychosocial: Anxiety, Depression History of Blood Disorders: No Family History Cancer of mouth 19 MOTHER FH: emphysema Hypertension Review of Systems Constitutional: see HPI, dizziness, malaise, weakness EENTM: no symptoms reported Respiratory: no symptoms reported Cardiovascular: palpitations Gastrointestinal: loss of appetite Genitourinary: no symptoms reported Musculoskeletal: no symptoms reported Skin: no symptoms reported Psychiatric/Neurological: No Symptoms Reported All Other Systems Reviewed Negative Unless Noted: Yes Physical Exam Physical Exam Vital Signs Vital Signs - First Documented 06/21/17 17:30 Temp 98.0 Pulse 88 Resp 20 B/P (MAP) 128/88 (101) Pulse Ox 95 O2 Delivery Room Air Capillary Refill : General Appearance: No Apparent Distress, WD/WN, Chronically ill, Obese Eyes: Bilateral Eye Normal Inspection, Bilateral Eye PERRL HEENT: PERRL/EOMI, Normal ENT Inspection, Pharynx Normal Neck: Full Range of Motion, Normal Inspection, Non Tender, Supple, Carotid Bruit Respiratory: Chest Non Tender, Lungs Clear, Normal Breath Sounds, No Accessory Muscle Use, No Respiratory Distress Cardiovascular: Regular Rate, Rhythm, No Edema, No Gallop, No JVD, No Murmur, Normal Peripheral Pulses Gastrointestinal: Normal Bowel Sounds, No Organomegaly, No Pulsatile Mass, Non Tender, Soft Back: Normal Inspection, No CVA Tenderness, No Vertebral Tenderness Extremity: Normal Capillary Refill, Normal Inspection, Normal Range of Motion, Non Tender, No Calf Tenderness, No Pedal Edema Neurologic/Psychiatric: Alert, Oriented x3, No Motor/Sensory Deficits, Normal Mood/Affect Skin: Normal Color, Warm/Dry Lymphatic: No Adenopathy Results Results/Procedures Labs Laboratory Tests 06/21/17 18:35 06/22/17 03:00 Patient resulted labs reviewed. Short Stay Diagnosis Discharge Diagnosis-Short Stay Admission Diagnosis Assessment: New-onset atrial fibrillation with symptoms consistent with rapid ventricular response and atrial fibrillation confirmed on telemetry during this hospital stay Elevated BNP consistent with volume overload Morbid obesity Presumed sleep apnea Hyperlipidemia Final Discharge Diagnosis Assessment: New-onset atrial fibrillation with symptoms consistent with rapid ventricular response and atrial fibrillation confirmed on telemetry during this hospital stay Elevated BNP consistent with volume overload Morbid obesity Presumed sleep apnea Hyperlipidemia Hypokalemia Conclusion Plan Plan: Cardiology will assess whether she can go home or not Needs sleep study by Dr. Palacios Cardiac meds per Dr. Currie Monitor closely until discharge Diagnosis/Problems Diagnosis/Problems (1) Atrial fibrillation, new onset Status: Acute (2) Dizziness Status: Acute (3) Elevated brain natriuretic peptide (BNP) level Status: Acute (4) Morbid obesity Status: Chronic (5) HERNÁN (obstructive sleep apnea) Status: Acute Assessment & Plan: Presumed. Will confirm with sleep study as an outpt (6) Elevated troponin I level Status: Acute Assessment & Plan: all troponins were negative at this facility Clinical Quality Measures DVT/VTE Risk/Contraindication: Risk Factor Score Per Nursin RFS Level Per Nursing on Admit: 4+=Very High ROOPA ESPARZA DO Jun 22, 2017 11:21
[2017-06-22] MEDS ORDERED: BACLOFEN 10 MG (LIORESAL) TAB PO PRN (11:30)
[2017-06-22] MEDS ORDERED: FUROSEMIDE 40 MG/4 ML INJ (LASIX) IVP NR (12:00)
[2017-06-22] MEDS ORDERED: SIMETHICONE 80 MG (MYLICON) CHEW PO PRN (12:15)
[2017-06-22] MEDS ORDERED: APIX5TAB4 PO (12:17)
[2017-06-22] MEDS ORDERED: METO-387 PO (12:17)
--- NOTE | 2017-06-22 12:47 | Cardiology Progress Note ---
Subjective Date Seen by Provider: Jun 22, 2017 Time Seen by Provider: 12:44 Subjective/Events-last exam Patient is sitting in bed, feeling better. Currently in sinus rhythm, denied any chest pain, no palpitation. Echocardiogram showed normal LV function, this morning I saw her around 7 a.m. and she was feeling better. Review of Systems General: No Chills, No Night Sweats, No Fatigue, No Malaise, No Appetite, No Other HEENT: No Head Aches, No Visual Changes, No Eye Pain, No Ear Pain, No Dysphasia , No Sinus Congestion, No Post Nasal Drip, No Sore Throat, No Other Pulmonary: No Dyspnea, No Cough, No Pleuritic Chest Pain, No Other Cardiovascular: No: Chest Pain, Palpitations, Orthopnea, Paroxysmal Noc. Dyspnea, Edema, Lt Headedness, Other Objective-Cardiology Exam Last Set of Vital Signs Vital Signs 06/22/17 06/22/17 10:00 11:27 Temp 98.2 Pulse 64 Resp 12 B/P (MAP) 128/88 (101) Pulse Ox 96 O2 Delivery Room Air Capillary Refill : I&O Intake and Output 06/22/17 00:00 Intake Total 220 ml Output Total 400 ml Balance -180 ml Intake Oral 220 ml Output Urine Total 400 ml Daily Weight Change No General: Alert, Oriented X3, Cooperative HEENT: Atraumatic, PERRLA Neck: Supple, No JVD, No Thyromegaly Lungs: Clear to Auscultation, Normal Air Movement Heart: Regular Rate, Normal S1, Normal S2, No Murmurs Abdomen: Normal Bowel Sounds, Soft, No Tenderness, No Hepatosplenomegaly, No Masses Extremities: No Clubbing, No Cyanosis, No Edema, Normal Pulses, No Tenderness/ Swelling Skin: No Rashes, No Breakdown, No Significant Lesion Neuro: Normal Gait, Normal Speech, Strength at 5/5 X4 Ext, Normal Tone, Sensation Intact Psych/Mental Status: Mental Status NL, Mood NL Results Lab Laboratory Tests 06/21/17 18:35 06/22/17 03:00 A/P-Cardiology Admission Diagnosis Paroxysmal atrial fibrillation Hypertension Hyperlipidemia Diabetes mellitus Assessment/Plan Paroxysmal atrial fibrillation, multiple episodes has been occurring more frequently recently, symptomatic, echocardiogram was normal, mildly dilated left atrium, tolerated Lovenox, I will start her on Eliquis, continue on Toprol as an outpatient follow-up as an outpatient Questionable elevation in troponin level, during her hospital stay her troponin was normal next Elevated BNP, probably secondary to atrial fibrillation and rapid ventricular response, normal left ventricular function. Given one dose of IV Lasix, educated on limiting fluid intake Hypertension, continue current medications and monitor Hyperlipidemia, continue to monitor as an outpatient Diabetes mellitus, followed and managed by primary care physician Chronic renal insufficiency, monitor renal function, followed by primary care physician Arthritic pain and arthritis, knee pain and back pain and neck pain. Maintained on tramadol, discussed the risk of GI bleed with her current medication I will start her on PPI for GI prophylaxis BMI is 43, we discussed weight loss and exercise High risk for underlying sleep apnea, recommended sleep study, reported that she had sleep study in the remote past over 15 years ago. It will need to done again History of restless leg syndrome History of anxiety. Clinical Quality Measures DVT/VTE Risk/Contraindication: Risk Factor Score Per Nursin RFS Level Per Nursing on Admit: 4+=Very High EDDIE HURT MD Jun 22, 2017 12:46
[2017-06-22] MEDS ORDERED: OXYBUTYNIN (DITROPAN) 5 MG TAB PO SCH (13:00)
[2017-06-22] MEDS ORDERED: ASPIRIN E.C. 81 MG (ECOTRIN) TAB PO SCH (21:00)
[2017-06-22] MEDS ORDERED: FENOFIBRATE 134 MG (LOFIBRA) CAPSULE PO SCH (21:00)
[2017-06-22] MEDS ORDERED: rOPINIRole 1 MG (REQUIP) TABLET PO SCH (21:00)
[2017-06-22] MEDS ORDERED: IMIPRAMINE 25 MG (TOFRANIL) TAB PO SCH (21:00)
[2017-06-23] MEDS ORDERED: LEVOTHYROXINE 75 MCG (LEVOTHROID) TABLET PO SCH (06:30)
[2017-06-23] MEDS ORDERED: LEVOTHYROXINE 100 MCG (LEVOTHROID) TAB PO SCH (06:30)
[2017-06-23] MEDS ORDERED: PIOGLITAZONE 30MG (ACTOS) TAB PO SCH (07:00)
[2017-06-23] MEDS ORDERED: LINAGLIPTIN (TRADJENTA) 5 MG TABLET PO SCH (09:00)
[2017-06-23] MEDS ORDERED: LOSARTAN 50 MG (COZAAR) TAB PO SCH (09:00)
--- OUTSIDE RECORDS SUMMARY | 2017-06-27 19:03 | XMS REPORT | Continuity of Care Document ---
Author Author [facility] Address Unknown Phone Unavailable Allergies Active Description Code Type Severity Reaction Onset Reported/Identified Relationship to Patient Clinical Status Yes NSAIDS (NON-STEROIDAL ANTI-INFLAMMATORY DRUG) MODERATE OTHER Yes No Known Drug Allergies [id number] Drug Allergy Unknown N/A 04/28/2008 Yes lovastatin Drug Allergy N/A N/A 05/20/2008 Yes lovastatin Drug Allergy 05/20/2008 Yes ibuprofen Drug Allergy N/A N/A 10/04/2009 Yes piroxicam Drug Allergy N/A N/A 10/04/2009 Yes ibuprofen Drug Allergy 10/04/2009 Yes piroxicam Drug Allergy 10/04/2009 Yes Actos 30 mg tablet Drug Allergy N/A N/A 11/08/2011 Yes Actos 30 mg tablet Drug Allergy 11/08/2011 Medications Medication Packaging Start Date Stop Date Route Dosage Sig ASPIRIN 81MG CHEWABLE TAB 81 MG (BABY ASPIRIN) MG 06/21/2017 06/21/2017 ONCE&1428 CEFTRIAXONE PREMIX IV BAG IV 1 GM/50CC (ROCEPHIN PREMIX IV BAG) GM 06/21/2017 06/21/2017 ONCE&1552 Problems Date Dx Coded Attending Type Code Diagnosis Diagnosed By 09/17/2007 TONY OLVERA DO 250.02 DIABETES MELLITUS POORLY CONTROLLED 09/17/2007 TONY OLVERA DO 250.02 DIABETES MELLITUS POORLY CONTROLLED 09/17/2007 TONY OLVERA DO 250.02 DIABETES MELLITUS POORLY CONTROLLED 09/17/2007 250.02 DIABETES MELLITUS POORLY CONTROLLED 09/17/2007 250.02 DIABETES MELLITUS POORLY CONTROLLED 09/17/2007 FUAD PATTERSON APRN 250.02 DIABETES MELLITUS POORLY CONTROLLED 09/17/2007 TONY OLVERA DO 250.02 DIABETES MELLITUS POORLY CONTROLLED 09/17/2007 TONY OLVERA DO 250.02 DIABETES MELLITUS POORLY CONTROLLED 09/17/2007 TONY OLVERA DO 250.02 DIABETES MELLITUS POORLY CONTROLLED 09/17/2007 OLVERA DO, TONY K 250.02 DIABETES MELLITUS POORLY CONTROLLED 09/17/2007 OLVERA DO, TONY K 250.02 DIABETES MELLITUS POORLY CONTROLLED 09/17/2007 OLVERA DO, TONY K 250.02 DIABETES MELLITUS POORLY CONTROLLED 09/17/2007 OLVERA DO, TONY K 250.02 DIABETES MELLITUS POORLY CONTROLLED 09/17/2007 OLVERA DO, TONY K 250.02 DIABETES MELLITUS POORLY CONTROLLED 11/19/2007 OLVERA DO, TONY K 724.5 Backache Unspecified 11/19/2007 OLVERA DO, TONY K 724.5 Backache Unspecified 11/19/2007 OLVERA DO, TONY K 724.5 Backache Unspecified 11/19/2007 724.5 Backache Unspecified 11/19/2007 724.5 Backache Unspecified 11/19/2007 FUAD PATTERSON APRN 724.5 Backache Unspecified 11/19/2007 OLVERA DO, TONY [...] Infection 01/21/2008 599.0 Urinary Tract Infection 01/21/2008 FUAD PATTERSON APRN 599.0 Urinary Tract Infection 01/21/2008 OLVERA DO, TONY K 599.0 Urinary Tract Infection 01/21/2008 OLVERA DO, TONY K 599.0 Urinary Tract Infection 01/21/2008 OLVERA DO, TONY K 599.0 Urinary Tract Infection 01/21/2008 OLVERA DO, TONY K 599.0 Urinary Tract Infection 01/21/2008 OLVREA DO, TONY K 599.0 Urinary Tract Infection [...] 02/25/2008 682.9 Cellulitis 02/25/2008 FUAD PATTERSON APRN 682.9 Cellulitis 02/25/2008 OLVERA DO, TONY K [...] V58.31 Wound Dressing 02/29/2008 FUAD PATTERSON APRN V58.31 Wound Dressing 02/29/2008 OLVERA DO, TONY [...] Ear 07/10/2008 388.70 Earache Right Ear 07/10/2008 LEONARDOBRENDA PAZ FUAD A 380.10 Otitis Externa - Right Ear 07/10/2008 LEONARDO CLERK OF SCALES, FUAD A 388.70 Earache Right Ear 07/10/2008 [...] 02/11/2009 250.00 DIABETES MELLITUS POORLY CONTROLLED 02/11/2009 LEONARDO PAZ FUAD A 250.00 DIABETES MELLITUS POORLY CONTROLLED 02/11/2009 [...] 780.6 FEVER 04/23/2009 786.2 Cough 04/23/2009 LEONARDO CLERK OF SCALES, FUAD A 480.8 Pneumonia Due To Other Virus Not Elsewhere Classified 04/23/2009 LEONARDO CLERK OF SCALES, FUAD A 780.6 FEVER 04/23/2009 LEONARDO CLERK OF SCALES, FUAD A 786.2 Cough 04/23/2009 OLVERA DO, [...] OLVERA DO, TONY K 786.2 Cough 04/23/2009 OLEVRA DO, TONY K 480.8 Pneumonia Due To [...] 788.63 Feelings Of Urinary Urgency 06/10/2009 LEONARDO CLERK OF SCALES, FUAD A 250.8 ULCER DIABETIC LOWER LIMB ALL 06/10/2009 LEONARDO CLERK OF SCALES, FUAD A 788.30 Urinary Loss Of Control 06/10/2009 LEONARDO CLERK OF SCALES, FUAD A 788.63 Feelings Of Urinary Urgency [...] 788.63 Feelings Of Urinary Urgency 06/25/2009 OLVERA DO TONY K 250.60 DIABETES WITH NEUROLOGICAL MANIFESTATIONS, TYPE II OR UNSPECIFIED TYPE, NOT STATED UNCONTROLLED 06/25/2009 OLVERA DOTONIEA K 757.39 POROKEROTOSIS 06/25/2009 OLVERA DO, TONY K 250.60 DIABETES WITH NEUROLOGICAL MANIFESTATIONS, TYPE II OR UNSPECIFIED TYPE, NOT STATED UNCONTROLLED 06/25/2009 TONIE OLVERA DOA K 757.39 POROKEROTOSIS 06/25/2009 OLVERA DO, TONY K 250.60 DIABETES WITH NEUROLOGICAL MANIFESTATIONS, TYPE II OR UNSPECIFIED TYPE, NOT STATED UNCONTROLLED 06/25/2009 TONIE OLVERA DOA K 757.39 POROKEROTOSIS 06/25/2009 250.60 DIABETES WITH [...] PATTERSON APRN A 757.39 POROKEROTOSIS 06/25/2009 OLVERA DO TONY K 250.60 DIABETES MELLITUS DIABETIC PERIPHERAL [...] RENAL FAILURE 10/11/2009 791.0 Proteinuria 10/11/2009 LEONARDO CLERK OF SCALES, FUAD A 585.9 CHRONIC RENAL FAILURE 10/11/2009 LEONARDO CLERK OF SCALES, FUAD A 791.0 Proteinuria 10/11/2009 OLVERA DO, TONY K 585.9 CHRONIC RENAL FAILURE 10/11/2009 OLVERA DO, TONY K 791.0 Proteinuria 10/11/2009 OLVERA DO, TONY K 585.9 CHRONIC RENAL FAILURE 10/11/2009 OLVERA DO, TONY K 791.0 Proteinuria 10/11/2009 OLVERA DO, TONY K 585.9 CHRONIC RENAL FAILURE 10/11/2009 OLVERA DO, TONY K 791.0 Proteinuria 10/11/2009 OLVERA DO, TOYN K 585.9 CHRONIC RENAL FAILURE 10/11/2009 OLVERA [...] Pain 04/14/2010 719.41 Shoulder Joint Pain 04/14/2010 LEONARDO PAZ FUAD A 719.41 Shoulder Joint Pain 04/14/2010 OLVERA DO, TONY K 719.41 Shoulder Joint Pain 04/14/2010 OLVERA DO, TONY K 719.41 Shoulder Joint Pain 04/14/2010 OLVERA DO, TONY K 719.41 Shoulder Joint Pain 04/14/2010 OLVERA DO, TONY K 719.41 Shoulder Joint Pain 04/14/2010 OLVERA DO, TONY K 719.41 Shoulder Joint Pain 04/14/2010 OLVERA DO, TONY K 719.41 Shoulder Joint Pain 04/14/2010 OLEVRA DO, TONY K 719.41 Shoulder Joint Pain 04/14/2010 OLVERA DO, TONY K 719.41 Shoulder Joint Pain 11/17/2010 OLVERA DO, TONY K 401.1 HYPERTENSION, BENIGN ESSENTIAL 11/17/2010 OLVERA DO, TONY K 401.1 HYPERTENSION, BENIGN ESSENTIAL 11/17/2010 OLVERA DO, TONY K 401.1 ESSENTIAL HYPERTENSION BENIGN 11/17/2010 401.1 ESSENTIAL HYPERTENSION BENIGN 11/17/2010 401.1 ESSENTIAL HYPERTENSION BENIGN 11/17/2010 LEONARDO PAZ FUAD A 401.1 ESSENTIAL HYPERTENSION BENIGN 11/17/2010 OLVERA [...] GIDDINESS 01/20/2011 780.52 INSOMNIA UNSPECIFIED 01/20/2011 LEONARDO CLERK OF SCALES, FUAD A 780.4 DIZZINESS AND GIDDINESS 01/20/2011 LEONARDO CLERK OF SCALES, FUAD A 780.52 INSOMNIA UNSPECIFIED 01/20/2011 OLVERA [...] DO, TONY K 780.8 GENERALIZED HYPERHIDROSIS 04/06/2011 LOVERA DO, TONY K 780.8 GENERALIZED HYPERHIDROSIS 04/06/2011 780.8 GENERALIZED HYPERHIDROSIS 04/06/2011 780.8 GENERALIZED HYPERHIDROSIS 04/06/2011 FUAD PATTERSON APRN A 780.8 GENERALIZED HYPERHIDROSIS 04/06/2011 OLVERA DO, [...] 07/17/2011 791.0 MICROALBUMINURIA 07/17/2011 FUAD PATTERSON APRN A 791.0 MICROALBUMINURIA 07/17/2011 OLVERA DO, TONY K [...] 02/02/2012 716.90 ARTHRITIS 02/02/2012 FUAD PATTERSON APRN A 333.94 RESTLESS LEGS SYNDROME (RLS) 02/02/2012 FUAD PATTERSON APRN A 716.90 ARTHRITIS 02/02/2012 OLVERA DO, TONY K [...] DIABETIC PERIPHERAL NEUROPATHY 05/14/2012 FUAD PATTERSON APRN A 357.2 DIABETES MELLITUS DIABETIC PERIPHERAL NEUROPATHY 05/14/2012 [...] TONY K 786.05 SHORTNESS OF BREATH 05/12/2013 TONIE OLVERA DOA K V49.89 OTHER SPECIFIED CONDITIONS INFLUENCING HEALTH STATUS 05/12/2013 OLVERA DO, TONY K 278.00 OBESITY UNSPECIFIED 05/12/2013 OLVERA DO, TONY K 786.05 SHORTNESS OF BREATH 05/12/2013 OLVERA DO, TONY K V49.89 OTHER SPECIFIED CONDITIONS INFLUENCING HEALTH STATUS 05/12/2013 WADE GARCIA TONY K 278.00 OBESITY UNSPECIFIED 05/12/2013 WADE DO, TONY K 786.05 SHORTNESS OF BREATH 05/12/2013 OLVERA DO, TONY K V49.89 OTHER SPECIFIED CONDITIONS INFLUENCING HEALTH STATUS 06/22/2017 ESPARZA DO, DIMITRI Ot E11.9 TYPE 2 DIABETES MELLITUS WITHOUT COMPLIC 06/22/2017 ESPARZA DO, DIMITRI Ot E66.9 OBESITY, UNSPECIFIED 06/22/2017 ESPARZA DO, DIMITRI Ot E78.5 HYPERLIPIDEMIA, UNSPECIFIED 06/22/2017 ESPARZA DO, DIMITRI Ot F41.9 ANXIETY DISORDER, UNSPECIFIED 06/22/2017 ESPARZA DO, DIMITRI Ot G25.81 RESTLESS LEGS SYNDROME 06/22/2017 ESPARZA DO, DIMITRI Ot G47.19 OTHER HYPERSOMNIA 06/22/2017 ESPARZA DO, DIMITRI Ot G47.33 OBSTRUCTIVE SLEEP APNEA (ADULT) (PEDIATR 06/22/2017 ESPARZA DO, DIMITRI Ot H35.30 UNSPECIFIED MACULAR DEGENERATION 06/22/2017 ESPARZA DO, DIMITRI Ot I12.9 HYPERTENSIVE CHRONIC KIDNEY DISEASE W ST 06/22/2017 ESPARZA DO, DIMITRI Ot I48.0 PAROXYSMAL ATRIAL FIBRILLATION 06/22/2017 ESPARZA DO, DIMITRI Ot I49.3 VENTRICULAR PREMATURE DEPOLARIZATION 06/22/2017 ESPARZA DO, DIMITRI Ot M17.10 UNILATERAL PRIMARY OSTEOARTHRITIS, UNSPE 06/22/2017 ESPARZA DO, DIMITRI Ot M47.9 SPONDYLOSIS, UNSPECIFIED 06/22/2017 ESPARZA DO, DIMITRI Ot M54.2 CERVICALGIA 06/22/2017 ESPARZA DO, DIMITRI Ot M54.9 DORSALGIA, UNSPECIFIED 06/22/2017 ESPARZA DO, DIMITRI Ot N18.9 CHRONIC KIDNEY DISEASE, UNSPECIFIED 06/22/2017 ESPARZA DO, DIMITRI Ot Z68.41 BODY MASS INDEX (BMI) 40.0-44.9, ADULT 06/22/2017 ESPARZA DO, DIMITRI Ot E11.9 TYPE 2 DIABETES MELLITUS WITHOUT COMPLIC 06/22/2017 ESPARZA DO, DIMITRI Ot E66.9 OBESITY, UNSPECIFIED 06/22/2017 ESPARZA DO, DIMITRI Ot E78.5 HYPERLIPIDEMIA, UNSPECIFIED 06/22/2017 ESPARZA DO, DIMITRI Ot F41.9 ANXIETY DISORDER, UNSPECIFIED 06/22/2017 ESPARZA DO, DIMITRI Ot G25.81 RESTLESS LEGS SYNDROME 06/22/2017 ESPARZA DO, DIMITRI Ot G47.19 OTHER HYPERSOMNIA 06/22/2017 ESPARZA DO, DIMITRI Ot G47.33 OBSTRUCTIVE SLEEP APNEA (ADULT) (PEDIATR 06/22/2017 ESPARZA DO, DIMITRI Ot H35.30 UNSPECIFIED MACULAR DEGENERATION 06/22/2017 ESPARZA DO, DIMITRI Ot I12.9 HYPERTENSIVE CHRONIC KIDNEY DISEASE W ST 06/22/2017 ESPARZA DO, DIMITRI Ot I48.0 PAROXYSMAL ATRIAL FIBRILLATION 06/22/2017 ESPARZA DO, DIMITRI Ot I49.3 VENTRICULAR PREMATURE DEPOLARIZATION 06/22/2017 ESPARZA DO, DIMITRI Ot M17.10 UNILATERAL PRIMARY OSTEOARTHRITIS, UNSPE 06/22/2017 ESPARZA DO, DIMITRI Ot M47.9 SPONDYLOSIS, UNSPECIFIED 06/22/2017 ESPARZA DO, DIMITRI Ot M54.2 CERVICALGIA 06/22/2017 ESPARZA DO, DIMITIR Ot M54.9 DORSALGIA, UNSPECIFIED 06/22/2017 ESPARZA DO, DIMITRI Ot N18.9 CHRONIC KIDNEY DISEASE, UNSPECIFIED 06/22/2017 ESPARZA DO, DIMITRI Ot Z68.41 BODY MASS INDEX (BMI) 40.0-44.9, ADULT Procedures Code Description [place] [address] ROUTINE VENIPUNCTURE 01/25/2012 99322 A1C (IN-HOUSE) 01/25/2012 32703 MICRO ALBUMIN-IN HOUSE 01/25/2012 52465 CMP 01/25/2012 [id number] GFR CALC (RESULT ONLY) 01/25/2012 65859 MICROALBUMIN 01/26/2012 23574 TSH 01/26/2012 91752 ROUTINE VENIPUNCTURE 05/14/2012 43271 A1C (IN-HOUSE) 05/14/2012 24219 MICRO ALBUMIN-IN HOUSE 05/14/2012 22607 CMP 05/14/2012 [id number] GFR CALC (RESULT ONLY) 05/14/2012 28004 TSH 05/14/2012 31373 MICROALBUMIN 05/14/2012 73022 UA W/ CULTURE IF INDICATED 11/14/2012 93270 CULTURE URINE 11/17/2012 79569 ROUTINE VENIPUNCTURE 11/29/2012 18210 A1C (IN-HOUSE) 11/29/2012 87154 CMP 11/29/2012 [id number] GFR CALC (RESULT ONLY) 11/29/2012 46192 TSH 11/29/2012 43741 ROUTINE VENIPUNCTURE 03/06/2013 27020 TSH 03/06/2013 11586 A1C (IN-HOUSE) 03/06/2013 [id number] GFR CALC (RESULT ONLY) 03/06/2013 95345 CMP 03/06/2013 68811 CULTURE URINE 05/05/2013 46337 UA W/ CULTURE IF INDICATED 05/05/2013 98467 TSH 08/01/2013 77885 CULTURE URINE 08/01/2013 07293 EKG, TRACING (IN-HOUSE) 08/01/2013 82950 ROUTINE VENIPUNCTURE 08/01/2013 14968 UA LONG DIP 08/01/2013 65226 CBC 08/01/2013 [id number] GFR CALC (RESULT ONLY) 08/01/2013 67731 CMP 08/01/2013 27169 LIPID PANEL 08/01/2013 26464 MAGNESIUM 08/01/2013 Results Test Result Range Urinalysis - 06/21/17 14:22 Icotest N/A Negative Urine Volume Urine Volume Sufficient (10mL) Urine-Appearance Clear Clear Urine-Bacteria 2+ Urine-Bilirubin Negative Negative Urine-Blood Negative Negative Urine-Color Yellow Colorless-Lt. Yellow Urine-Epithelial Cells 0-5/HPF Urine-Glucose Trace Negative Urine-Ketones Negative Negative Urine-Leukocytes Trace Negative Urine-Nitrite Positive Negative Urine-Other Culture to follow Urine-pH 5.5 5-8.5 Urine-Protein Negative Negative Urine-Specific [place] 1.025 1.000-1.030 Urine-WBC 10-20/HPF Urobilinogen 0.2 E.U./dL 0.2-1.0 Urine Culture - 06/21/17 14:22 PRELIM CULTURE RESULTS >100,000 Gram Negative Lactose Melt House Centrifugal Operator MAGDY / ID to Follow MEDIA PLATED Setup at 15:13 on 06/21/2017 CULTURE SOURCE clean catch reflex Sensi - 06/21/17 14:22 FINAL CULTURE RESULTS Escherichia coli (Isolate 1) Ampicillin/Sulbactam >16/8 Ampicillin >16 Amoxicillin/K Clavulanate 16/8 Ceftriaxone <=8 Ciprofloxacin >2 Nitrofurantoin >64 Gentamicin <=4 Levofloxacin >4 Trimethoprim/ Sulfamethoxazole >2/38 Tetracycline >8 Amikacin <=16 Aztreonam <=8 Ceftazidime <=1 Ceftazidime/K Clavulanate <=0.25 Cephalothin >16 Cefotaxime <=2 Cefotaxime/K Clavulanate <=0.5 Cefoxitin <=8 Cefazolin >16 Cefepime <=8 Cefuroxime 8 Ertapenem <=1 Imipenem <=4 Meropenem <=4 Piperacillin/Tazobactam <=16 Piperacillin >64 Tigecycline <=2 Tobramycin <=4 Complete blood count (CBC) with automated white blood cell (WBC) differential - 06/21/17 18:35 Blood leukocytes automated count (number/volume) 9.5 10*3/uL 4.3-11.0 Blood erythrocytes automated count (number/volume) 4.46 10*6/uL 4.35-5.85 Venous blood hemoglobin measurement (mass/volume) 12.7 g/dL 11.5-16.0 Blood hematocrit (volume fraction) 39 % 35-52 Automated erythrocyte mean corpuscular volume 86 [foz_us] 80-99 Automated erythrocyte mean corpuscular hemoglobin (mass per erythrocyte) 29 pg 25-34 Automated erythrocyte mean corpuscular hemoglobin concentration measurement ( mass/volume) 33 g/dL 32-36 Automated erythrocyte distribution width ratio 14.0 % 10.0-14.5 Automated blood platelet count (count/volume) 358 10*3/uL 130-400 Automated blood platelet mean volume measurement 10.1 [foz_us] 7.4-10.4 Automated blood neutrophils/100 leukocytes 59 % 42-75 Automated blood lymphocytes/100 leukocytes 30 % 12-44 Blood monocytes/100 leukocytes 7 % 0-12 Automated blood eosinophils/100 leukocytes 4 % 0-10 Automated blood basophils/100 leukocytes 1 % 0-10 Blood neutrophils automated count (number/volume) 5.6 10*3 1.8-7.8 Blood lymphocytes automated count (number/volume) 2.8 10*3 1.0-4.0 Blood monocytes automated count (number/volume) 0.7 10*3 0.0-1.0 Automated eosinophil count 0.3 10*3/uL 0.0-0.3 Automated blood basophil count (count/volume) 0.1 10*3/uL 0.0-0.1 Comprehensive metabolic panel - 06/21/17 18:35 Serum or plasma sodium measurement (moles/volume) 136 mmol/L 135-145 Serum or plasma potassium measurement (moles/volume) 4.7 mmol/L 3.6-5.0 Serum or plasma chloride measurement (moles/volume) 105 mmol/L 98-107 Carbon dioxide 24 mmol/L 21-32 Serum or plasma anion gap determination (moles/volume) 7 mmol/L 5-14 Serum or plasma urea nitrogen measurement (mass/volume) 32 mg/dL 7-18 Serum or plasma creatinine measurement (mass/volume) 1.16 mg/dL 0.60-1.30 Serum or plasma urea nitrogen/creatinine mass ratio 28 NRG Serum or plasma creatinine measurement with calculation of estimated glomerular filtration rate 47 NRG Serum or plasma glucose measurement (mass/volume) 154 mg/dL 70-105 Serum or plasma calcium measurement (mass/volume) 9.6 mg/dL 8.5-10.1 Serum or plasma total bilirubin measurement (mass/volume) 0.4 mg/dL 0.1-1.0 Serum or plasma alkaline phosphatase measurement (enzymatic activity/volume) 42 U/L 40-136 Serum or plasma aspartate aminotransferase measurement (enzymatic activity/ volume) 15 U/L 5-34 Serum or plasma alanine aminotransferase measurement (enzymatic activity/volume ) 16 U/L 0-55 Serum or plasma protein measurement (mass/volume) 7.4 g/dL 6.4-8.2 Serum or plasma albumin measurement (mass/volume) 4.0 g/dL 3.2-4.5 Serum or plasma lithium measurement (moles/volume) - 06/21/17 18:35 BNP level 513.1 pg/mL <100.0 Serum or plasma troponin i.cardiac measurement (mass/volume) - 06/21/17 18:35 Serum or plasma troponin i.cardiac measurement (mass/volume) < ng/ mL <0.30 Methicillin resistant Staphylococcus aureus (MRSA) screening culture - 18:35 Methicillin resistant Staphylococcus aureus (MRSA) screening culture [facility] Serum or plasma troponin i.cardiac measurement (mass/volume) - 06/21/17 20:50 Serum or plasma troponin i.cardiac measurement (mass/volume) < ng/ mL <0.30 Complete blood count (CBC) with automated white blood cell (WBC) differential - 06/22/17 03:00 Blood leukocytes automated count (number/volume) 9.0 10*3/uL 4.3-11.0 Blood erythrocytes automated count (number/volume) 4.83 10*6/uL 4.35-5.85 Venous blood hemoglobin measurement (mass/volume) 13.7 g/dL 11.5-16.0 Blood hematocrit (volume fraction) 42 % 35-52 Automated erythrocyte mean corpuscular volume 86 [foz_us] 80-99 Automated erythrocyte mean corpuscular hemoglobin (mass per erythrocyte) 28 pg 25-34 Automated erythrocyte mean corpuscular hemoglobin concentration measurement ( mass/volume) 33 g/dL 32-36 Automated erythrocyte distribution width ratio 13.8 % 10.0-14.5 Automated blood platelet count (count/volume) 379 10*3/uL 130-400 Automated blood platelet mean volume measurement 10.6 [foz_us] 7.4-10.4 Automated blood neutrophils/100 leukocytes 47 % 42-75 Automated blood lymphocytes/100 leukocytes 41 % 12-44 Blood monocytes/100 leukocytes 6 % 0-12 Automated blood eosinophils/100 leukocytes 5 % 0-10 Automated blood basophils/100 leukocytes 1 % 0-10 Blood neutrophils automated count (number/volume) 4.2 10*3 1.8-7.8 Blood lymphocytes automated count (number/volume) 3.7 10*3 1.0-4.0 Blood monocytes automated count (number/volume) 0.5 10*3 0.0-1.0 Automated eosinophil count 0.4 10*3/uL 0.0-0.3 Automated blood basophil count (count/volume) 0.1 10*3/uL 0.0-0.1 Comprehensive metabolic panel - 06/22/17 03:00 Serum or plasma sodium measurement (moles/volume) 137 mmol/L 135-145 Serum or plasma potassium measurement (moles/volume) 4.2 mmol/L 3.6-5.0 Serum or plasma chloride measurement (moles/volume) 104 mmol/L 98-107 Carbon dioxide 23 mmol/L 21-32 Serum or plasma anion gap determination (moles/volume) 10 mmol/L 5-14 Serum or plasma urea nitrogen measurement (mass/volume) 32 mg/dL 7-18 Serum or plasma creatinine measurement (mass/volume) 1.17 mg/dL 0.60-1.30 Serum or plasma urea nitrogen/creatinine mass ratio 27 NRG Serum or plasma creatinine measurement with calculation of estimated glomerular filtration rate 47 NRG Serum or plasma glucose measurement (mass/volume) 175 mg/dL 70-105 Serum or plasma calcium measurement (mass/volume) 9.5 mg/dL 8.5-10.1 Serum or plasma total bilirubin measurement (mass/volume) 0.4 mg/dL 0.1-1.0 Serum or plasma alkaline phosphatase measurement (enzymatic activity/volume) 45 U/L 40-136 Serum or plasma aspartate aminotransferase measurement (enzymatic activity/ volume) 14 U/L 5-34 Serum or plasma alanine aminotransferase measurement (enzymatic activity/volume ) 13 U/L 0-55 Serum or plasma protein measurement (mass/volume) 7.2 g/dL 6.4-8.2 Serum or plasma albumin measurement (mass/volume) 3.9 g/dL 3.2-4.5 Serum or plasma lithium measurement (moles/volume) - 06/22/17 03:00 BNP level 491.7 pg/mL <100.0 Serum or plasma troponin i.cardiac measurement (mass/volume) - 06/22/17 03:00 Serum or plasma troponin i.cardiac measurement (mass/volume) < ng/ mL <0.30 THYROID STIMULATING HORMONE - 06/22/17 03:00 THYROID STIMULATING HORMONE 1.90 u[iU]/mL 0.35-4.94 Capillary blood glucose measurement by glucometer (mass/volume) - 06/22/17 11: 21 Capillary blood glucose measurement by glucometer (mass/volume) 216 mg/dL 70-110 Encounters ACCT No. Visit Date/Time Discharge Status Pt. Type Provider Facility Loc./Unit Complaint [id number] 08/01/2013 08:18:00 08/01/2013 23:59:59 [facility] Outpatient TONY OLVERA DO [id number] 05/12/2013 10:34:00 05/12/2013 23:59:59 [facility] Outpatient TONY OLVERA DO [id number] 05/05/2013 11:58:00 05/05/2013 23:59:59 [facility] Outpatient OLVERA DOTONY [id number] 05/05/2013 11:58:00 05/05/2013 23:59:59 C[facility] Outpatient OLVERA DOTONY [id number] 03/06/2013 08:22:00 03/06/2013 23:59:59 CLS Outpatient WADE DOTONY [id number] 11/29/2012 09:21:00 11/29/2012 23:59:59 CLS Outpatient OLVERA DOTONY [id number] 11/29/2012 09:21:00 11/29/2012 23:59:59 C[facility] Outpatient OLVERA DOTONY [id number] 11/14/2012 08:56:00 11/14/2012 23:59:59 CLS Outpatient FUAD PATTERSON APRN [id number] 05/14/2012 11:07:00 05/14/2012 23:59:59 CLS Outpatient WADE DOTONY [id number] 02/02/2012 13:49:00 02/02/2012 23:59:59 CLS Outpatient OLVERA DOTONY [id number] 01/25/2012 10:08:00 01/25/2012 23:59:59 CLS Outpatient OLVERA DOTONY [id number] 10/20/2011 09:00:00 10/20/2011 23:59:59 CLS Outpatient OLVERA DOTONY [id number] 08/20/2012 08:22:00 Document Registration [id number] 05/14/2012 11:07:00 Document Registration [id number] 06/21/2017 17:30:00 06/22/2017 13:05:00 DIS Inpatient DENIZ ESPARZA DOI [facility] ICU A-FIB W/RVR [id number] 06/21/2017 14:15:00 06/21/2017 16:45:00 DIS Outpatient [place] [id number] 06/21/2017 14:52:03 Document Registration
== END 2017-06-22 13:05 | disposition home or self-care (01) | DRG 309 ==
LOC: EDSTATUS 12:53 → INTOOBSV 17:30 → ICU 17:30 → UNDOADMOB 17:30 → UNDODISOB 06-22 13:05
PROVIDERS: ADMIT Internal Medicine; ATTEND Internal Medicine
DX: I48.0 Paroxysmal atrial fibrillation (principal); I49.3 Ventricular premature depolarization; E66.01 Morbid (severe) obesity due to excess calories; Z68.41 Body mass index [BMI] 40.0-44.9, adult; E87.6 Hypokalemia; I12.9 Hypertensive chronic kidney disease with stage 1 through stage 4 chronic kidney disease, or unspecified chronic kidney disease; N18.9 Chronic kidney disease, unspecified; E11.9 Type 2 diabetes mellitus without complications; E78.00 Pure hypercholesterolemia, unspecified; E78.5 Hyperlipidemia, unspecified; M17.10 Unilateral primary osteoarthritis, unspecified knee; M47.9 Spondylosis, unspecified; M54.2 Cervicalgia; G25.81 Restless legs syndrome; F41.9 Anxiety disorder, unspecified; G47.10 Hypersomnia, unspecified; H35.30 Unspecified macular degeneration
CPT/HCPCS: 36415; 71045; 80053; 82962; 83880; 84443; 84484; 85025; 85027; 87081; 93005; 93306

== ENCOUNTER 2017-08-14 19:15 | Outpatient (CLI) | payer MEDICARE, MEDICAID ==
[~2017-08-14 19:15] MED LIST changes: +APIX5TAB4 PO; +ASPI-983 PO; +BACL10TA PO; +FENO145T37 PO; +IMIP50TA4 PO; +LEVO175T5 PO; +LOSA50TA36 PO; +METO-387 PO; +OXYB15TA PO; +PIOG30TA26 PO; +ROPI1TAB2 PO; +SIME80TA57 PO; +SITA100T12 PO; +TRAM50TA2 PO
== END 2017-08-15 06:30 | disposition home or self-care (01) ==
LOC: SLEEP 19:15
PROVIDERS: ATTEND Nurse Practitioner Family
DX: G47.10 Hypersomnia, unspecified (principal); G47.30 Sleep apnea, unspecified; R06.09 Other forms of dyspnea; I48.0 Paroxysmal atrial fibrillation
CPT/HCPCS: 95811

== ENCOUNTER 2017-09-27 20:46 | Outpatient (CLI) | payer MEDICARE, MEDICAID ==
[~2017-09-27 20:46] MED LIST changes: -PIOG30TA26 PO; +PIOG30TA71 PO
== END 2017-09-28 06:10 | disposition home or self-care (01) ==
LOC: SLEEP 20:46
PROVIDERS: ATTEND Nurse Practitioner Family
DX: G47.33 Obstructive sleep apnea (adult) (pediatric) (principal); I48.0 Paroxysmal atrial fibrillation; R06.09 Other forms of dyspnea
CPT/HCPCS: 95811

== ENCOUNTER → 2017-11-07 | Outpatient (CLI) | payer MEDICARE, MEDICAID ==
[~2017-11-07] MED LIST changes: -LOSA50TA36 PO; +LOSA50TA7 PO
== END ==
LOC: RT 16:39
PROVIDERS: ATTEND Nurse Practitioner Family
DX: R06.09 Other forms of dyspnea (principal)

== ENCOUNTER → 2017-11-28 | Outpatient (CLI) | payer MEDICARE, MEDICAID ==
[~2017-11-28] MED LIST changes: +RT-ALBUTEROL SULF 2.5 MG/3 ML PRE-MIX VIAL INH ONE
== END ==
LOC: RT 08:37
PROVIDERS: ATTEND Nurse Practitioner Family
DX: R06.00 Dyspnea, unspecified (principal)
CPT/HCPCS: 94060; 94726; 94729

== ENCOUNTER 2018-03-14 10:00 | Outpatient (RCR) | payer MEDICARE, MEDICAID ==
[2017-12-17 14:44] VITALS: BP 143/60
--- NOTE | 2017-12-31 11:56 | Pulmonary Rehab Eval/Txmt Plan ---
Pulmonary Rehab Initial Eval Information Paper Evaluation Completed: No Date: Dec 17, 2017 Therapist: sivakumar agosto Diagnosis: RLD Referring Physician: Shayy Logan APRN Pulmonary Rehab Treatment Plan Treatment P Treatment Periord: Initial Diagnosis Diagnosis: RLD Date: Dec 17, 2017 Barriers to Learning Barriers: Cognitive, Literacy Assessment/Problems Exercise: Deconditioning, No Regular Exercise, Sedentary Type: aerobic Frequency: 2 times per week Duration: up to 30 min aerobic exercise or more per pts analia. Initial MET Level: 2 Aerobic Exercise/Goals Freq: time per week minus UT: 2 Type: Arm Ergometry, Bike, Scifi/Nustep, Treadmill Antoinette appears to have mental or emotional health issues. She seems to have a hard time understanding; she can come across aggressive. So far, pt has shown to all education classes; other pts have stated that she can come across rude. but pt has controlled her temper, no outburst. Pt will be scheduled to start exercise upon completion of education; therapist and physician to monitor pts progress and attitude. WESLEY BANSAL DO Dec 31, 2017 11:56
[2018-01-08 10:50] VITALS: BP 142/63
[2018-01-22 10:45] VITALS: BP 120/60
[2018-01-22 10:48] VITALS: BP 120/76
[2018-01-24 09:50] VITALS: BP 130/76
[2018-01-24 10:55] VITALS: BP 130/70
[2018-01-31 10:00] VITALS: BP 130/80
[2018-01-31 11:00] VITALS: BP 123/70
[2018-02-05 09:55] VITALS: BP 140/70
[2018-02-07 10:00] VITALS: BP 130/70
[2018-02-07 10:36] VITALS: BP 140/60
[2018-02-12 10:00] VITALS: BP 112/70
[2018-02-12 11:00] VITALS: BP 127/60
[2018-02-14 09:56] VITALS: BP 130/50
[2018-02-14 10:00] VITALS: BP 140/60
[2018-02-14 10:40] VITALS: BP 127/80
[2018-02-21 10:00] VITALS: BP 145/60
[2018-02-21 10:50] VITALS: BP 170/50
[2018-03-05 10:00] VITALS: BP 125/80
[2018-03-05 11:30] VITALS: BP 127/80
[2018-03-07 10:00] VITALS: BP 122/60
[2018-03-07 11:00] VITALS: BP 118/56
[2018-03-12 10:00] VITALS: BP 115/60
[2018-03-12 10:57] VITALS: BP 130/60
[~2018-03-14] VITALS: Ht 172.7 cm; Wt 132.0 kg
[2018-03-14 10:00] VITALS: BP 110/70
[~2018-03-14 10:00] MED LIST changes: -RT-ALBUTEROL SULF 2.5 MG/3 ML PRE-MIX VIAL INH ONE
[2018-03-14 11:00] VITALS: BP 104/70
== END 2018-03-17 | disposition home or self-care (01) ==
LOC: PULM 10:00
PROVIDERS: ATTEND Nurse Practitioner Family
DX: J98.4 Other disorders of lung (principal)

== ENCOUNTER → 2018-04-17 | Outpatient (CLI) | payer MEDICARE, MEDICAID ==
[~2018-04-17] MED LIST changes: +CATHETER FLUSH 10 ML SYR IV PRN; +LOSA50TA63 PO; -LOSA50TA7 PO; +REGADENOSON 0.4 MG/5 ML SYR (LEXISCAN) IV ONE
[2018-04-17 09:03] VITALS: BP 175/94
--- NOTE | 2018-04-17 16:06 | STRESS TEST ---
DATE OF SERVICE: 04/17/2018 LEXISCAN MYOVIEW STRESS TEST REPORT REFERRING PHYSICIAN: Dr. Joseline Hamlin. Baseline heart rate is 77, baseline blood pressure 175/94. Baseline EKG is sinus rhythm with no ischemic changes. In summary, the patient was injected with 10.97 mCi of technetium-99 Myoview and the resting images were obtained. Then, the patient received 0.4 mg of Lexiscan followed by 31.1 mCi of technetium-99 Myoview. Throughout the test, there were no EKG changes. The resting and stress images were reviewed and compared in the short axis, horizontal long axis, and vertical long axis views. Review of the images showed breast attenuation with reversible ischemia involving the mid to apical anterior wall and mid to apical inferior wall. SSS is 7, SDS 6. TID value 1.04. On the gated images, the left ventricle is prominent with diffuse left ventricular hypokinesia, calculated ejection fraction 36%. CONCLUSION: 1. The patient tolerated Lexiscan well. 2. Breast attenuation with ischemia involving the mid to apical anterior wall and mid to apical inferior wall. 3. Prominent left ventricle with diffuse left ventricular hypokinesia with calculated ejection fraction 36%. Job ID: [id number] DocumentID: [id number] Dictated Date: 04/17/2018 15:28:58 Assistant Scientist Date: 04/17/2018 16:05:55 Dictated By: EDDIE HURT MD
== END ==
LOC: CARD 06:50
PROVIDERS: ATTEND Internal Medicine Cardiovascular Disease
DX: I11.9 Hypertensive heart disease without heart failure (principal); E78.2 Mixed hyperlipidemia; I35.1 Nonrheumatic aortic (valve) insufficiency; R06.09 Other forms of dyspnea; E11.9 Type 2 diabetes mellitus without complications
CPT/HCPCS: 78452; 93017

== ENCOUNTER 2018-05-01 06:39 | Day surgery (SDC) | payer MEDICARE, MEDICAID ==
[2018-05-01] VITALS (13 sets, daily range): BP systolic 103–143; BP diastolic 72–90
[~2018-05-01] VITALS: Ht 172.7 cm; Wt 130.6 kg
[~2018-05-01 06:39] MED LIST changes: -CATHETER FLUSH 10 ML SYR IV PRN; -REGADENOSON 0.4 MG/5 ML SYR (LEXISCAN) IV ONE
[2018-05-01] MEDS ORDERED: NS IV 1000 ML 3,000 ML ONE (07:06)
[2018-05-01] MEDS ORDERED: LIDOCAINE 1% INJ 20 ML 20 ML VIAL ONE (07:06)
[2018-05-01] MEDS ORDERED: HEParin 1000 UNIT/ML (10ML VIAL) FOR BOLUS ONE ×2 (07:06→09:02)
[2018-05-01] MEDS ORDERED: NS IV 1000 ML 1,000 ML IV SCH (07:15)
[2018-05-01 07:41] LABS: HEMOGLOBIN 12.6 G/DL (11.5-16.0); MEAN PLATELET VOLUME 9.9 FL (7.4-10.4); RED CELL DISTRIBUTION WIDTH 13.7 % (10.0-14.5); WHITE BLOOD COUNT 7.9 10^3/uL (4.3-11.0)
[2018-05-01 07:42] LABS: BILIRUBIN,URINE NEGATIVE (NEGATIVE); CLARITY,URINE SLIGHTLY CLOUDY; COLOR,URINE YELLOW; GLUCOSE, URINE (UA) NEGATIVE (NEGATIVE); KETONES,URINE NEGATIVE (NEGATIVE); LEUKOCYTE ESTERASE ,URINE 2+ (NEGATIVE); NITRITE,URINE POSITIVE (NEGATIVE); PH,URINE 7 (5-9); PROTEIN,URINE 1+ (NEGATIVE); UROBILINOGEN,URINE NORMAL (NORMAL)
[2018-05-01 07:58] LABS: PROTHROMBIN TIME PATIENT 13.3 SEC (12.2-14.7)
[2018-05-01] MEDS ORDERED: MELA1TAB27 PO (07:59)
[2018-05-01] MEDS ORDERED: FLU QUADRIvalent (5+ YOA) 2018-2019 (AFLURIA) 0.5 ML IM ONE (08:00)
[2018-05-01 08:04] LABS: ALBUMIN 4.4 GM/DL (3.2-4.5); BILIRUBIN,TOTAL 0.4 MG/DL (0.1-1.0); CALCIUM 9.8 MG/DL (8.5-10.1); CREATININE SERUM 1.27 MG/DL (0.60-1.30); POTASSIUM 4.6 MMOL/L (3.6-5.0); TOTAL PROTEIN 7.8 GM/DL (6.4-8.2)
--- OUTSIDE RECORDS SUMMARY | 2018-05-01 08:06 | XMS REPORT | Continuity of Care Document ---
Author Author [facility] Address Unknown Phone Unavailable Allergies Active Description Code Type Severity Reaction Onset Reported/Identified Relationship to Patient Clinical Status Yes NSAIDS (NON-STEROIDAL ANTI-INFLAMMATORY DRUG) MODERATE OTHER Yes No Known Drug Allergies [id number] Drug Allergy Unknown N/A 04/28/2008 Yes lovastatin [...] 250.02 DIABETES MELLITUS POORLY CONTROLLED 09/17/2007 TONY OLVREA DO 250.02 DIABETES MELLITUS POORLY CONTROLLED 09/17/2007 [...] Otitis Externa - Right Ear 07/10/2008 LEONARDO METALIZING MACHINE OPERATOR AUTOMATIC, FUAD A 388.70 Earache Right Ear 07/10/2008 [...] 780.6 FEVER 04/23/2009 786.2 Cough 04/23/2009 LEONARDO METALIZING MACHINE OPERATOR [employer]OM[employer], FUAD A 480.8 Pneumonia Due To Other Virus Not Elsewhere Classified 04/23/2009 LEONARDO METALIZING MACHINE OPERATOR AUTOMATIC, FUAD A 780.6 FEVER 04/23/2009 LEONARDO METALIZING MACHINE OPERATOR AUTOMATIC, FUAD A 786.2 Cough 04/23/2009 OLVERA DO, [...] TONY K 788.41 Urinary Frequency Increased 05/21/2009 OVLERA DO, TONY K 788.41 Urinary Frequency Increased [...] 788.63 Feelings Of Urinary Urgency 06/10/2009 LEONARDO METALIZING MACHINE OPERATOR [employer]OMATIC, FUAD A 250.8 ULCER DIABETIC LOWER LIMB ALL 06/10/2009 LEONARDO METALIZING MACHINE OPERATOR [employer]OMATIC, FUAD A 788.30 Urinary Loss Of Control 06/10/2009 LEONARDO METALIZING MACHINE OPERATOR [employer]OMATIC, FUAD A 788.63 Feelings Of Urinary Urgency [...] K 788.30 Urinary Loss Of Control 06/10/2009 OLVEAR DO, TONY K 788.63 Feelings Of Urinary [...] RENAL FAILURE 10/11/2009 791.0 Proteinuria 10/11/2009 LEONARDO METALIZING MACHINE OPERATOR [employer]OM[employer], FUAD A 585.9 CHRONIC RENAL FAILURE 10/11/2009 LEONARDO METALIZING MACHINE OPERATOR AUTOMATIC, FUAD A 791.0 Proteinuria 10/11/2009 OLVERA DO, [...] GIDDINESS 01/20/2011 780.52 INSOMNIA UNSPECIFIED 01/20/2011 LEONARDO METALIZING MACHINE OPERATOR [employer], FUAD A 780.4 DIZZINESS AND GIDDINESS 01/20/2011 LEONARDO METALIZING MACHINE OPERATOR [employer]OMATIC, FUAD A 780.52 INSOMNIA UNSPECIFIED 01/20/2011 OLVERA [...] 585 CHRONIC RENAL FAILURE 05/05/2013 OLVERA DO, TNOY K 530.81 GERD 05/05/2013 OLVERA DO, TONY [...] V49.89 OTHER SPECIFIED CONDITIONS INFLUENCING HEALTH STATUS 06/21/2017 Anatoly Woodsya W 041.49 OTHER AND UNSPECIFIED ESCHERICHIA COLI [E. COLI] INFECTION IN CONDITIONS CLASSIFIED ELSEWHERE AND OF UNSPECIFIED SITE 06/21/2017 Ella Woods W 244.9 UNSPECIFIED HYPOTHYROIDISM 06/21/2017 Anatoly Woodsya W 250.00 DIABETES MELLITUS WITHOUT MENTION OF COMPLICATION, TYPE II OR UNSPECIFIED TYPE, NOT STATED UNCONTROLLED 06/21/2017 Ella Woods W 401.0 MALIGNANT ESSENTIAL HYPERTENSION 06/21/2017 Anatoly Woodsya W 427.31 06/21/2017 Brokob Ella W 599.0 06/21/2017 Chuck Ella A 785.1 06/21/2017 Anatoly Woodsya W B96.20 UNSP ESCHERICHIA COLI THE CAUSE OF DISEASES CLASSD ELSWHR 06/21/2017 Anatoly Woodsya W E03.9 HYPOTHYROIDISM, UNSPECIFIED 06/21/2017 Anatoly Woodsya W E11.9 TYPE 2 DIABETES MELLITUS WITHOUT COMPLICATIONS 06/21/2017 Anatoly Woodsya W I10 ESSENTIAL (PRIMARY) HYPERTENSION 06/21/2017 Anatoly Woodsya W I48.91 UNSPECIFIED ATRIAL FIBRILLATION 06/21/2017 Anatoly Woodsya W N39.0 URINARY TRACT INFECTION, SITE NOT SPECIFIED 06/21/2017 Anatoly Woodsya A R00.2 PALPITATIONS 06/22/2017 ESPARZA DO, DIMITRI Ot E11.9 TYPE [...] WITHOUT COMPLIC 06/22/2017 ESPARZA DO, DIMITRI Ot E66.01 MORBID (SEVERE) OBESITY DUE TO EXCESS CA 06/22/2017 ESPARZA DO, DIMITRI Ot E66.9 OBESITY, UNSPECIFIED 06/22/2017 ESPARZA DO, DIMITRI Ot E78.00 PURE HYPERCHOLESTEROLEMIA, UNSPECIFIED 06/22/2017 ESPARZA DO, DIMITRI Ot E78.5 HYPERLIPIDEMIA, UNSPECIFIED 06/22/2017 ESPARZA DO, DIMITRI Ot E87.6 HYPOKALEMIA 06/22/2017 ESPARZA DO, DIMITRI Ot F41.9 ANXIETY DISORDER, UNSPECIFIED 06/22/2017 ESPARZA DO, DIMITRI Ot G25.81 RESTLESS LEGS SYNDROME 06/22/2017 ESPARZA DO, DIMITRI Ot G47.10 HYPERSOMNIA, UNSPECIFIED 06/22/2017 ESPARZA DO, DIMITRI Ot G47.19 OTHER [...] Z68.41 BODY MASS INDEX (BMI) 40.0-44.9, ADULT 08/15/2017 GIL GLOVER METALIZING MACHINE OPERATOR AUTOMATIC Ot G47.10 HYPERSOMNIA, UNSPECIFIED 08/15/2017 GIL GLOVER E METALIZING MACHINE OPERATOR AUTOMATIC Ot G47.30 SLEEP APNEA, UNSPECIFIED 08/15/2017 FITO GLOVERINE E METALIZING MACHINE OPERATOR AUTOMATIC Ot I48.0 PAROXYSMAL ATRIAL FIBRILLATION 08/15/2017 GIL GLOVER METALIZING MACHINE OPERATOR AUTOMATIC Ot R06.09 OTHER FORMS OF DYSPNEA 08/16/2017 GIL GLOVER E METALIZING MACHINE OPERATOR AUTOMATIC Ot G47.10 HYPERSOMNIA, UNSPECIFIED 08/16/2017 ADALBERTO GIL E METALIZING MACHINE OPERATOR AUTOMATIC Ot G47.30 SLEEP APNEA, UNSPECIFIED 08/16/2017 ADALBERTO GIL E METALIZING MACHINE OPERATOR AUTOMATIC Ot I48.0 PAROXYSMAL ATRIAL FIBRILLATION 08/16/2017 GIL GLOVER METALIZING MACHINE OPERATOR AUTOMATIC Ot R06.09 OTHER FORMS OF DYSPNEA 09/28/2017 GIL GLOVER E METALIZING MACHINE OPERATOR AUTOMATIC Ot G47.33 OBSTRUCTIVE SLEEP APNEA (ADULT) (PEDIATR 09/28/2017 GIL GLOVER E METALIZING MACHINE OPERATOR AUTOMATIC Ot I48.0 PAROXYSMAL ATRIAL FIBRILLATION 09/28/2017 FITO GLOVERINE E METALIZING MACHINE OPERATOR AUTOMATIC Ot R06.09 OTHER FORMS OF DYSPNEA 11/07/2017 ADALBERTO, GIL E METALIZING MACHINE OPERATOR AUTOMATIC Ot R06.09 OTHER FORMS OF DYSPNEA 11/09/2017 ADALBERTO, GIL E METALIZING MACHINE OPERATOR AUTOMATIC Ot R06.09 OTHER FORMS OF DYSPNEA 11/30/2017 ADALBERTO, GIL E METALIZING MACHINE OPERATOR AUTOMATIC Ot R06.00 DYSPNEA, UNSPECIFIED 12/17/2017 ADALBERTO, GIL E METALIZING MACHINE OPERATOR AUTOMATIC Ot R06.09 OTHER FORMS OF DYSPNEA 12/17/2017 ADALBERTO, GIL E METALIZING MACHINE OPERATOR AUTOMATIC Ot R06.00 DYSPNEA, UNSPECIFIED 12/25/2017 ADALBERTO, GIL E METALIZING MACHINE OPERATOR AUTOMATIC Ot R06.00 DYSPNEA, UNSPECIFIED 12/26/2017 ADALBERTO, GIL E METALIZING MACHINE OPERATOR AUTOMATIC Ot R06.00 DYSPNEA, UNSPECIFIED 12/31/2017 ADALBERTO, GIL E METALIZING MACHINE OPERATOR AUTOMATIC Ot J98.4 OTHER DISORDERS OF LUNG 01/08/2018 ADALBERTO, GIL E METALIZING MACHINE OPERATOR AUTOMATIC Ot J98.4 OTHER DISORDERS OF LUNG 01/22/2018 ADALBERTO, GIL E METALIZING MACHINE OPERATOR AUTOMATIC Ot J98.4 OTHER DISORDERS OF LUNG 01/24/2018 ADALBERTO, GIL E METALIZING MACHINE OPERATOR AUTOMATIC Ot J98.4 OTHER DISORDERS OF LUNG 01/31/2018 ADALBERTO, GIL E METALIZING MACHINE OPERATOR AUTOMATIC Ot J98.4 OTHER DISORDERS OF LUNG 02/05/2018 ADALBERTO, GIL E METALIZING MACHINE OPERATOR AUTOMATIC Ot J98.4 OTHER DISORDERS OF LUNG 02/05/2018 ADALBERTO, GIL E METALIZING MACHINE OPERATOR AUTOMATIC Ot J98.4 OTHER DISORDERS OF LUNG 02/07/2018 ADALBERTO, IGL E METALIZING MACHINE OPERATOR AUTOMATIC Ot J98.4 OTHER DISORDERS OF LUNG 02/12/2018 ADALBERTO, GIL E METALIZING MACHINE OPERATOR AUTOMATIC Ot J98.4 OTHER DISORDERS OF LUNG 02/14/2018 ADALBERTO, GIL E METALIZING MACHINE OPERATOR AUTOMATIC Ot J98.4 OTHER DISORDERS OF LUNG 02/14/2018 ADALBERTO, GIL E METALIZING MACHINE OPERATOR AUTOMATIC Ot J98.4 OTHER DISORDERS OF LUNG 02/21/2018 ADALBERTO, GIL E METALIZING MACHINE OPERATOR AUTOMATIC Ot J98.4 OTHER DISORDERS OF LUNG 02/22/2018 ADALBERTO, GIL E METALIZING MACHINE OPERATOR AUTOMATIC Ot J98.4 OTHER DISORDERS OF LUNG 03/05/2018 ADALBERTO, GIL E METALIZING MACHINE OPERATOR AUTOMATIC Ot J98.4 OTHER DISORDERS OF LUNG 03/07/2018 ADALBERTO, GIL E METALIZING MACHINE OPERATOR AUTOMATIC Ot J98.4 OTHER DISORDERS OF LUNG 03/12/2018 ADALBERTO, GIL E METALIZING MACHINE OPERATOR AUTOMATIC Ot J98.4 OTHER DISORDERS OF LUNG 03/14/2018 GIL GLOVER APRN Ot J98.4 OTHER DISORDERS OF LUNG 03/17/2018 GIL GLOVER APRN Ot J98.4 OTHER DISORDERS OF LUNG 03/18/2018 GIL GLOVER APRN Ot J98.4 OTHER DISORDERS OF LUNG 04/18/2018 EDDIE HURT MD Ot E11.9 TYPE 2 DIABETES MELLITUS WITHOUT COMPLIC 04/18/2018 EDDIE HURT MD Ot E78.2 MIXED HYPERLIPIDEMIA 04/18/2018 EDDIE HURT MD Ot I11.9 HYPERTENSIVE HEART DISEASE WITHOUT HEART 04/18/2018 EDDIE HURT MD Ot I35.1 NONRHEUMATIC AORTIC (VALVE) INSUFFICIENC 04/18/2018 EDDIE HURT MD Ot R06.09 OTHER FORMS OF DYSPNEA Procedures Code Description [place] [address] ROUTINE VENIPUNCTURE 01/25/2012 51398 A1C (IN-HOUSE) 01/25/2012 74233 MICRO ALBUMIN-IN HOUSE 01/25/2012 41839 CMP 01/25/2012 [id number] GFR CALC (RESULT ONLY) 01/25/2012 66923 MICROALBUMIN 01/26/2012 04213 TSH 01/26/2012 71056 ROUTINE VENIPUNCTURE 05/14/2012 47453 A1C (IN-HOUSE) 05/14/2012 75406 MICRO ALBUMIN-IN HOUSE 05/14/2012 78150 CMP 05/14/2012 [id number] GFR CALC (RESULT ONLY) 05/14/2012 13745 TSH 05/14/2012 68879 MICROALBUMIN 05/14/2012 11269 UA W/ CULTURE IF INDICATED 11/14/2012 18266 CULTURE URINE 11/17/2012 68704 ROUTINE VENIPUNCTURE 11/29/2012 43429 A1C (IN-HOUSE) 11/29/2012 05938 CMP 11/29/2012 [id number] GFR CALC (RESULT ONLY) 11/29/2012 72058 TSH 11/29/2012 43497 ROUTINE VENIPUNCTURE 03/06/2013 48488 TSH 03/06/2013 06349 A1C (IN-HOUSE) 03/06/2013 [id number] GFR CALC (RESULT ONLY) 03/06/2013 61972 CMP 03/06/2013 03582 CULTURE URINE 05/05/2013 05382 UA W/ CULTURE IF INDICATED 05/05/2013 99189 TSH 08/01/2013 96757 CULTURE URINE 08/01/2013 73792 EKG, TRACING (IN-HOUSE) 08/01/2013 96768 ROUTINE VENIPUNCTURE 08/01/2013 61586 UA LONG DIP 08/01/2013 97608 CBC 08/01/2013 [id number] GFR CALC (RESULT ONLY) 08/01/2013 60900 CMP 08/01/2013 26347 LIPID PANEL 08/01/2013 05449 MAGNESIUM 08/01/2013 Results Test Result Range Urinalysis - 06/21/17 14:22 Icotest N/A Negative Urine Volume Urine Volume Sufficient (10mL) Urine-Appearance Clear Clear Urine-Bacteria 2+ Urine-Bilirubin Negative Negative Urine-Blood Negative Negative Urine-Color Yellow Colorless-Lt. Yellow Urine-Epithelial Cells 0-5/HPF Urine-Glucose Trace Negative Urine-Ketones Negative Negative Urine-Leukocytes Trace Negative Urine-Nitrite Positive Negative Urine-Other Culture to follow Urine-pH 5.5 5-8.5 Urine-Protein Negative Negative Urine-Specific [place] 1.025 1.000-1.030 Urine-WBC 10-20/HPF Urobilinogen 0.2 E.U./dL 0.2-1.0 Urine Culture - 06/21/17 14:22 PRELIM CULTURE RESULTS >100,000 Gram Negative Lactose Extractor Operator Helper MAGDY / ID to Follow MEDIA PLATED [...] resistant Staphylococcus aureus (MRSA) screening culture NEG NRG Serum or plasma troponin i.cardiac measurement (mass/volume) [...] Status Pt. Type Provider Facility Loc./Unit Complaint [id number] 08/01/2013 08:18:00 08/01/2013 23:59:59 CLS Outpatient TONY OLVERA DO [id number] 05/12/2013 10:34:00 05/12/2013 23:59:59 CLS Outpatient TONY OLVERA DO [id number] 05/05/2013 11:58:00 05/05/2013 23:59:59 CLS Outpatient TONY OLVERA DO [id number] 05/05/2013 11:58:00 05/05/2013 23:59:59 CLS Outpatient TONY OLVERA DO [id number] 03/06/2013 08:22:00 03/06/2013 23:59:59 CLS Outpatient TONY OLVERA DO [id number] 11/29/2012 09:21:00 11/29/2012 23:59:59 CLS Outpatient TONY OLVERA DO [id number] 11/29/2012 09:21:00 11/29/2012 23:59:59 CLS Outpatient TONY OLVERA DO [id number] 11/14/2012 08:56:00 11/14/2012 23:59:59 CLS Outpatient FUAD PATTERSON APRN [id number] 05/14/2012 11:07:00 05/14/2012 23:59:59 CLS Outpatient TONY OLVERA DO [id number] 02/02/2012 13:49:00 02/02/2012 23:59:59 CLS Outpatient TONY OLVERA DO [id number] 01/25/2012 10:08:00 01/25/2012 23:59:59 CLS Outpatient TONY OLVERA DO [id number] 10/20/2011 09:00:00 10/20/2011 23:59:59 CLS Outpatient TONY OLVERA DO [id number] 08/20/2012 08:22:00 Document Registration [id number] 05/14/2012 11:07:00 Document Registration [id number] 04/17/2018 06:50:00 04/17/2018 23:59:59 CLS Outpatient EDDIE HURT MD [facility] CARD DM, DIASTOLIC DIASTOLIC DYSFUNCTION [id number] 03/18/2018 00:14:00 03/18/2018 23:59:59 CLS Preadmit FITO GLOVERINE E METALIZING MACHINE OPERATOR AUTOMATIC [facility] PUL RESTRICTIVE LUNG DISEASE [id number] 03/14/2018 10:00:00 03/17/2018 00:01:00 DIS Outpatient ADALBERTO GIL E METALIZING MACHINE OPERATOR [employer]OMAT[employer] [facility] PUL RESTRICTIVE LUNG DISEASE [id number] 11/28/2017 08:37:00 11/28/2017 23:59:59 CLS Outpatient ADALBERTO GIL E METALIZING MACHINE OPERATOR [employer]AT[employer] [facility] RT DYSPNEA ON EXERTION [id number] 11/07/2017 16:39:00 11/07/2017 23:59:59 CLS Outpatient ADALBERTO GIL E METALIZING MACHINE OPERATOR AUTOMATIC [facility] RT R06.09 DYSPNEA ON EXERTION [id number] 08/21/2017 10:45:00 08/21/2017 23:59:59 CLS Outpatient ADALBERTO GIL E METALIZING MACHINE OPERATOR AUTOMATIC [facility] SLEEP HERNÁN,PAF,SLEEP DISORDER,KHAN [id number] 08/14/2017 19:15:00 08/15/2017 06:30:00 DIS Outpatient ADALBERTO GIL E METALIZING MACHINE OPERATOR AUTOMAT[employer] [facility] SLEEP R06.09 DYSPNEA ON EXERTION [id number] 06/21/2017 17:30:00 06/22/2017 13:05:00 DIS Inpatient DIMITRI ESPARZA DO [facility] ICU A-FIB W/RVR [id number] 05/01/2018 06:39:00 ACT Outpatient EDDIE HURT MD [facility] CATH ABN STRESS TEST [id number] 06/21/2017 14:15:00 06/21/2017 16:45:00 DIS Outpatient Ella Woods [id number] 06/21/2017 14:52:03 Document Registration [id number] 04/25/2018 12:00:00 04/25/2018 23:59:59 CLS Outpatient RISA CRUZ LAC
[2018-05-01] MEDS ORDERED: MIDAZOLAM 5 MG/5 ML (VERSED) VIAL ONE (08:09)
[2018-05-01] MEDS ORDERED: fentaNYL INJECTION 100 MCG/2 ML AMP ONE (08:10)
--- NOTE | 2018-05-01 08:11 | Diagnostic Imaging Report ---
INDICATION: Pre-heart catheterization. TIME OF EXAM: 7:37 AM Correlation is made with prior study from 06/21/2017. FINDINGS: The heart is enlarged, but stable. Lungs are clear. No infiltrate or failure is seen. Pulmonary vascularity is normal. No effusion or pneumothorax is identified. Postop changes in cervical spine are noted. IMPRESSION: No acute cardiopulmonary process is detected. Dictated by: Dictated on workstation # [id number]
--- NOTE | 2018-05-01 08:11 | Cardiac Procedure Note-CS/ASA ---
Pre-Procedure Note Pre-Op Procedure Note H&P Reviewed The H&P was reviewed, patient examined and no changes noted. Date H&P Reviewed: May 01, 2018 Time H&P Reviewed: 08:11 Conscious Sedation Pre-Proced Time 08:11 ASA Score 3 For ASA 3 and 4: Consider anesthesia and medical clearance. Also, for patients with a history of failed moderate sedation consider anesthesia. Airway Lungs Heart ASA score ASA 1: a normal healthy patient ASA 2: a patient with a mild systemic disease (mid diabetes, controlled hypertension, obesity X ASA 3: a patient with a severe systemic disease that limits activity (angina , COPD, prior Myocardial infarction) ASA 4: a patient with an incapacitating disease that is a constant threat to life (CHF, renal failure) ASA 5: a moribund patient not expected to survive 24 hrs. (ruptured aneurysm) ASA 6: a declared brain- patient whose organs are being harvested. For emergent operations, add the letter E after the classification Mallampati Classification Grade 3 Sedation Plan Analgesia, Amnesia, Plan communicated to team members, Discussed options with patient/fam, Discussed risks with patient/fam The patient is an appropriate candidate to undergo the planned procedure, sedation, and anesthesia. The patient immediately re-assessed prior to indication. EDDIE HURT MD May 01, 2018 08:11
[2018-05-01 08:21] LABS: AMORPHOUS SEDIMENT,UR FEW AMOR PHOSPHATE /LPF; BACTERIA,URINE MODERATE /HPF; RBC,URINE RARE /HPF
[2018-05-01] MEDS ORDERED: ADENOSINE 3 MG/1 ML (ADENOSCAN) 30ML VIAL IV ONE ×2 (08:45→08:48)
[2018-05-01] MEDS ORDERED: NITRO DRIP 25000 MCG/D5W 250 ML IV ONE (09:31)
[2018-05-01] MEDS ORDERED: TICAGRELOR 90 MG TABLET (BRILINTA) PO ONE (09:36)
[2018-05-01] MEDS ORDERED: ASPIRIN 81 MG CHEW (CHILDREN'S ASA) ONE (09:36)
[2018-05-01] MEDS ORDERED: PATIENT MAY USE OWN MEDS, ALL PO SCH (09:45)
[2018-05-01] MEDS ORDERED: BACLOFEN 10 MG (LIORESAL) TAB PO PRN (09:45)
--- NOTE | 2018-05-01 09:56 | Cardiac Cath Report ---
Cardiac Cath Report Physician (s)/Finger Grip Machine Operator (s) Physician EDDIE HURT MD Pre-Procedure Diagnosis Pre-Procedure Diagnosis: coronary artery disease Post-Procedure Note Procedure Start Date: May 01, 2018 Name of Procedure: Left heart catheterization Stent to the LAD Findings/Procedure Note PROCEDURE NOTE: After explaining the procedure to the patient, all pros and cons were explained , all questions were answered. The patient signed the consent and then she was placed on the cardiac catheterization laboratory. Groin was prepped SL fashion local anesthesia was used. Sheath placed in the artery. Sangeetha right and left catheter were used to access the coronary system. Pigtail was used to access the left ventricular cavity. pressure was measured no left ventriculogram was done Patient had significant lesion in the mid LAD, heavily calcified LAD system and left main, 5000 units of heparin. I was initially planning to do FFR but was unable to advance the FFR wire through the tortuosity and calcification in the LAD, I attempted to advance a BMW wire without success then I used a whisper extra support. Proceeded with balloon angioplasty using emerge 3 x 15, I attempted to advance a stent without success, the stent was was getting stuck at the left main due to heavy calcification in the left main. Subsequently I advanced another balloon and tried to use guide liner, I was unable to advance the guide liner through the left main due to the heavy calcification, no dissection was noted. I removed the balloon and the guide liner then I advanced the second wire using a BMW wire and reintroduce the stent over the BMW wire with difficulties I was able to cross the left main area had then advanced it to the mid LAD and did 2 inflation under high-pressure expanding the stent to to 3.7 under 16 lupis, angiogram showed excellent result then the balloon and wire were removed and repeated angiogram showing no complication. At the end of the procedure the sheath was sutured in place FINDINGS: Hemodynamics LV 116/19, end-diastolic pressure of 19 Aorta 144/64 mean of 89 ANATOMY: Left Main is heavily calcified with distal left main stenosis up to 50 percent angiographically, will need to have IVUS done at a later point Left Anterior Descending is heavily calcified from the proximal to the mid with severe stenosis at the midportion, complex intervention using multiple wires and balloons then deployment of Xience Isamar 3.5 x 18 expanded to 3.7 mm with excellent results, mild residual stenosis at the mid lesion. The first diagonal artery is heavily calcified with 50 percent stenosis. Left Circumflex is moderate in size with mild disease nonobstructive disease Right Coronory Artery is dominant artery with mild disease nonobstructive disease LV Gram was not done, pressure was measured CONCLUSION: 1. Heavily calcified left main artery with 50 percent stenosis, nonobstructive disease, will require to have IVUS at a later point 2. Heavily calcified LAD with complex lesion required multiple wiring and a guide liner and double wiring then balloon angioplasty and the appointment of Isamar 3.5 x 18 millimeter expanded to 3.7 with excellent results 3. Calcified diagonal artery with dron-of-yconiahz disease nonobstructive disease 4. Mild to moderate disease in the circumflex and right coronary artery DISCUSSION AND RECOMMENDATION: I will maximize medical therapy, patient has a left main coronary artery stenosis that will require close monitoring and probably evaluating IVUS within the next 4-6 weeks to the LAD, preferably in a tertiary care center Anesthesia Type: Conscious Sedation Estimated blood loss (mL): 35 ml Contrast Amount: 200 ml Total Radiation Dose: 2879 mGy Post-Procedure Diagnosis Post-operative diagnosis: Coronary artery disease Hypertension Hyperlipidemia Diabetes mellitus EDDIE HURT MD May 01, 2018 09:56
[2018-05-01] MEDS: NS IV 1000 ML 1,000 ML IV SCH ×2 (11:06→22:27)
[2018-05-01] MEDS ORDERED: ATROPINE INJ 0.4 MG/ML SDV ONE (11:16)
--- NOTE | 2018-05-01 11:21 | NUR ---
Human Resources Records Clerk RN's here to pull sheath. RN held pressure for 20 minutes and then pt moved leg and began bleeding again. Pressure held for 20 more minutes and then dressing applied.
[2018-05-01] MEDS ORDERED: MELATONIN 3 MG TABLET PO SCH (21:00)
[2018-05-01] MEDS ORDERED: NON-FORMULARY MEDICATION 1 EA EA (Ropinirole HCl 1 MG) PO SCH (21:00)
[2018-05-01] MEDS ORDERED: rOPINIRole 1 MG (REQUIP) TABLET PO SCH (21:00)
[2018-05-01] MEDS ORDERED: IMIPRAMINE 25 MG (TOFRANIL) TAB PO SCH (21:00)
[2018-05-01] MEDS ORDERED: TICAGRELOR 90 MG TABLET (BRILINTA) PO SCH (21:00)
[2018-05-01] MEDS ORDERED: NON-FORMULARY MEDICATION 1 EA EA (Imipramine HCl 50 MG) PO SCH (21:00)
[2018-05-01] MEDS ORDERED: APIXABAN 5 MG (ELIQUIS) TABLET PO SCH (21:00)
[2018-05-01] MEDS ORDERED: FENOFIBRATE 134 MG (LOFIBRA) CAPSULE PO SCH (21:00)
[2018-05-01] MEDS ORDERED: NON-FORMULARY MEDICATION 1 EA EA (Fenofibrate Nanocrystallized (Fenofibrate) 145 MG) PO SCH (21:00)
[2018-05-02] VITALS (8 sets, daily range): BP systolic 80–135; BP diastolic 47–79
[2018-05-02 04:04] LABS: RED CELL DISTRIBUTION WIDTH 13.8 % (10.0-14.5); WHITE BLOOD COUNT 7.4 10^3/uL (4.3-11.0)
[2018-05-02 04:21] LABS: CALCIUM 9.4 MG/DL (8.5-10.1); CREATININE SERUM 1.23 MG/DL (0.60-1.30); POTASSIUM 4.2 MMOL/L (3.6-5.0)
[2018-05-02] MEDS ORDERED: NS (IVPB) 100 ML ONE (06:20)
[2018-05-02] MEDS ORDERED: DIGOXIN 0.25 MG/ML (LANOXIN) 2 ML AMP ONE (06:20)
[2018-05-02] MEDS ORDERED: DILTIAZEM 125 MG/25 ML IV (CARDIZEM) IV ONE (06:21)
[2018-05-02] MEDS ORDERED: DIGOXIN 0.25 MG/ML (LANOXIN) 2 ML AMP IV ONE (06:30)
[2018-05-02] MEDS ORDERED: LEVOTHYROXINE 75 MCG (LEVOTHROID) TABLET PO SCH (06:30)
[2018-05-02] MEDS ORDERED: DILTIAZEM INJECTION 125 MG in NS (IVPB) 100 ML IV SCH (06:30)
[2018-05-02] MEDS ORDERED: LEVOTHYROXINE 100 MCG (LEVOTHROID) TAB PO SCH (06:30)
[2018-05-02] MEDS ORDERED: AMIODARONE FOR BOLUS 150 MG in D5W 100 ML IVPB 100 ML IV ONE (06:45)
[2018-05-02] MEDS ORDERED: AMIODARONE INJECTION 450 MG in D5W IV SOLUTION (EXCEL) 250 ML IV SCH (06:45)
--- NOTE | 2018-05-02 06:46 | Cardiac Procedure Note-CS/ASA ---
Pre-Procedure Note Pre-Op Procedure Note H&P Reviewed The H&P was reviewed, patient examined and no changes noted. Date H&P Reviewed: May 02, 2018 Time H&P Reviewed: 06:46 Conscious Sedation Pre-Proced Time 06:46 ASA Score 3 For ASA 3 and 4: Consider anesthesia and medical clearance. Also, for patients with a history of failed moderate sedation consider anesthesia. Airway Lungs Heart ASA score ASA 1: a normal healthy patient ASA 2: a patient with a mild systemic disease (mid diabetes, controlled hypertension, obesity x ASA 3: a patient with a severe systemic disease that limits activity (angina , COPD, prior Myocardial infarction) ASA 4: a patient with an incapacitating disease that is a constant threat to life (CHF, renal failure) ASA 5: a moribund patient not expected to survive 24 hrs. (ruptured aneurysm) ASA 6: a declared brain- patient whose organs are being harvested. For emergent operations, add the letter E after the classification Mallampati Classification Grade 3 Sedation Plan Analgesia, Amnesia, Plan communicated to team members, Discussed options with patient/fam, Discussed risks with patient/fam The patient is an appropriate candidate to undergo the planned procedure, sedation, and anesthesia. The patient immediately re-assessed prior to indication. EDDIE HURT MD May 02, 2018 06:46
--- NOTE | 2018-05-02 06:50 | Cardiology Progress Note ---
Subjective Date Seen by Provider: May 02, 2018 Time Seen by Provider: 06:47 Subjective/Events-last exam patient is laying down in bed, denied any active pain, she went to atrial fibrillation with rapid ventricular response early this morning, heart rate is still tachycardic, borderline hypotensive. Started on Cardizem drip and given digoxin without adequate response. Review of Systems General: No Chills, No Night Sweats, No Fatigue, No Malaise, No Appetite, No Other HEENT: No Head Aches, No Visual Changes, No Eye Pain, No Ear Pain, No Dysphasia , No Sinus Congestion, No Post Nasal Drip, No Sore Throat, No Other Pulmonary: Dyspnea; No Cough, No Pleuritic Chest Pain, No Other Cardiovascular: Palpitations; No: Chest Pain, Orthopnea, Paroxysmal Noc. Dyspnea, Edema, Lt Headedness, Other Objective-Cardiology Exam Last Set of Vital Signs Vital Signs 05/02/18 08:00 Pulse 89 B/P (MAP) 127/66 (86) Capillary Refill : Less Than 3 Seconds I&O Intake and Output 05/02/18 00:00 Intake Total 200 ml Balance 200 ml Intake Oral 200 ml # Voids 1 General: Alert, Oriented X3, Cooperative HEENT: Atraumatic, PERRLA Neck: Supple, No JVD, No Thyromegaly Lungs: Clear to Auscultation, Normal Air Movement Heart: Normal S1, Normal S2, No Murmurs, Other (atrial fibrillation with rapid ventricular response) Abdomen: Normal Bowel Sounds, Soft, No Tenderness, No Hepatosplenomegaly, No Masses Extremities: No Clubbing, No Cyanosis, No Edema, Normal Pulses, No Tenderness/ Swelling Skin: No Rashes, No Breakdown, No Significant Lesion Neuro: Normal Gait, Normal Speech, Strength at 5/5 X4 Ext, Normal Tone, Sensation Intact Psych/Mental Status: Mental Status NL, Mood NL Results Lab Laboratory Tests 05/02/18 03:50 A/P-Cardiology Admission Diagnosis Paroxysmal atrial fibrillation Coronary artery disease Hypertension Hyperlipidemia Assessment/Plan Paroxysmal atrial fibrillation, currently in acute atrial fibrillation with rapid ventricular response and borderline hypotension, I am planning to proceed with electrical cardioversion now, she is borderline hypotensive. Receiving IV fluid, I will start amiodarone bolus and a drip and monitor Coronary artery disease, complex intervention to the LAD with stenting 1. Heavily calcified left main artery with 50 percent stenosis, nonobstructive disease, will require to have IVUS at a later point 2. Heavily calcified LAD with complex lesion required multiple wiring and a guide-liner and double wiring then balloon angioplasty and the Deployment of Isamar 3.5 x 18 millimeter expanded to 3.7 with excellent results 3. Calcified diagonal artery with [id number]-yx-[id number] disease nonobstructive disease 4. Mild to moderate disease in the circumflex and right coronary artery Hypertension, currently borderline hypotensive, start IV fluid and monitor closely Hyperlipidemia, continue current medications and monitor Diabetes mellitus. Continue current medications and monitor Addendum at 1300 Patient underwent electrical cardioversion early this morning, I loaded her with amiodarone drip and oral and she maintained sinus rhythm, I am planning to discharge home and continue on amiodarone, Eliquis, aspirin and Plavix and monitor as an outpatient EDDIE HURT MD May 02, 2018 06:50
[2018-05-02] MEDS ORDERED: AMIODARONE (OMNICELL DRIP KIT) 150 MG/3 ML IV ONE (06:54)
[2018-05-02] MEDS ORDERED: AMIODARONE 450 MG/9 ML (CORDARONE) VIAL IV ONE (06:54)
[2018-05-02] MEDS ORDERED: D5W 100 ML IVPB 100 ML IV ONE (06:55)
[2018-05-02] MEDS ORDERED: D5W IV SOLUTION (EXCEL) 250 ML IV ONE (06:56)
[2018-05-02] MEDS ORDERED: PIOGLITAZONE 30MG (ACTOS) TAB PO SCH (07:00)
[2018-05-02] MEDS ORDERED: LINAGLIPTIN (TRADJENTA) 5 MG TABLET PO SCH (07:00)
[2018-05-02] MEDS ORDERED: MIDAZOLAM 2 MG/2 ML (VERSED) VIAL ONE (07:03)
[2018-05-02] MEDS ORDERED: proPOfol 200 MG/20 ML (DIPRIVAN) VIAL IV ONE (07:03)
--- NOTE | 2018-05-02 07:30 | Progress Note-Standard ---
Standard Progress Note Progress Notes/Assess & Plan Date Seen by a Provider: May 02, 2018 Time Seen by a Provider: 07:29 Progress/Assessment & Plan consult for sedation for cardioversion .. asa 3 start time 726 end time 728. 40mg propofol and 2 mg versed given iv. patient tolerated procedure well.. LUANNE JOSEPH CRNA May 02, 2018 07:30
--- NOTE | 2018-05-02 07:33 | Cardioversion ---
Cardioversion PROCEDURE PHYSICIAN: Eddie Currie DATE OF PROCEDURE: 05/02/18 DIRECT EXTERNAL ELECTRICAL CARDIOVERSION: Indications: Atrial Fibrillation with rapid ventricular rate Preoperative diagnoses: Atrial Fibrillation with rapid ventricular rate Postoperative diagnosis: Sinus rhythm, Successful Electrical Cardioversion Anesthesia: By Anesthesia services Complications: None Procedure Details: The patient was brought the photo lab specialist after informed consent was taken, all the risks and complications were explained including the risk of stroke. Electrical cardioversion was carried out with anesthesia support with propofol. 200 joules of synchronized shock was delivered through external patches which promptly restored sinus rhythm. The patient tolerated the procedure well. Conclusions: Successful electrical cardioversion in terminating atrial fibrillation EDDIE CURRIE MD May 02, 2018 07:33
[2018-05-02] MEDS ORDERED: NS IV 1000 ML 1,000 ML IV SCH (07:45)
[2018-05-02] MEDS ORDERED: CLOPIDOGREL 75 MG (PLAVIX) TABLET PO SCH (09:00)
[2018-05-02] MEDS ORDERED: ASPIRIN E.C. 81 MG (ECOTRIN) TAB PO SCH (09:00)
[2018-05-02] MEDS ORDERED: AMIODARONE 200 MG (CORDARONE) TAB PO SCH (09:00)
[2018-05-02] MEDS ORDERED: NON-FORMULARY MEDICATION 1 EA EA (Levothyroxine Sodium 175 MCG) PO SCH (09:00)
[2018-05-02] MEDS ORDERED: NON-FORMULARY MEDICATION 1 EA EA (Losartan Potassium 50 MG) PO SCH (09:00)
[2018-05-02] MEDS ORDERED: NON-FORMULARY MEDICATION 1 EA EA (Pioglitazone HCl 30 MG) PO SCH (09:00)
[2018-05-02] MEDS ORDERED: OXYBUTYNIN (DITROPAN) 5 MG TAB PO SCH (09:00)
[2018-05-02] MEDS ORDERED: NON-FORMULARY MEDICATION 1 EA EA (Sitagliptin Phosphate (Januvia) 100 MG) PO SCH (09:00)
[2018-05-02] MEDS ORDERED: NON-FORMULARY MEDICATION 1 EA EA (Oxybutynin Chloride (Oxybutynin Chloride ER) 15 MG) PO SCH (09:00)
[2018-05-02] MEDS ORDERED: LOSARTAN 50 MG (COZAAR) TAB PO SCH (09:00)
[2018-05-02] MEDS ORDERED: APIXABAN 5 MG (ELIQUIS) TABLET PO SCH (09:00)
[2018-05-02] MEDS ORDERED: PANTOPRAZOLE 40 MG (PROTONIX) TAB PO SCH (09:00)
[2018-05-02] MEDS ORDERED: APIX5TAB PO (12:59)
[2018-05-02] MEDS ORDERED: ASPI-983 PO (12:59)
[2018-05-02] MEDS ORDERED: PANT40TA3 PO (12:59)
[2018-05-02] MEDS ORDERED: CLOP75TA28 PO (12:59)
--- NOTE | 2018-05-02 13:00 | Discharge Inst-Post CATH ---
Discharge Inst-CATH/EP Post Cardiac Cath/EP D/C Inst Follow Up/Plan Appointment with Dr Currie's office in 1-2 weeks CARDIAC CATH DISCHARGE INSTRUCTIONS *Hold Metformin for 48 hours post heart cath. ACTIVITY * Go Home directly and rest. * Limit activity of the leg (or wrist if it was used) for 7 days including aerobics, swimming, jogging, bicycling, etc. * Restrict stair-climbing for 7 days if possible, if not, climb up with your non -cath leg, then bring together on the same step. * Avoid lifting, pushing, pulling or excessive movement of the affected extremity for 7 days. * Customary sexual activity may be resumed after 2 days-use caution not to use a position that strains or causes pain to the affected extremity. * No driving for 24 hours. * NO SMOKING. * Avoid straining for bowel movements for 7 days. * Gentle walking on level ground is allowed. * Returning to work will depend on the type of procedure and the results. Your doctor will discuss this with you. CALL YOUR DOCTOR FOR ANY OF THE FOLLOWING: *If bleeding from the puncture site occurs- Apply gentle pressure to site with clean cloth and call your doctor or EMS. * If a knot or lump forms under the skin, increases in size, or causes pain. * If bruising appears to be worsening or moving further down your leg instead of disappearing. * Temperature above 101 F. CARE OF YOUR GROIN INCISION; * Bruising or purple discoloration of the skin near the puncture site is common. * You may shower only, no bathtub bathing for 5 days. Be careful to avoid slipping as your leg may feel stiff. * If a closure device was used on your femoral artery, please see the attached guide regarding care of the device and your leg. * Leave the dressing on, until removed by office staff. CARE OF YOUR WRIST INCISION; * Bruising or purple discoloration of the skin near the puncture site is common. * You may shower. * DO NOT submerge wrist. * Leave dressing on, until removed by office staff.. EDDIE CURRIE MD May 02, 2018 13:00
[2018-05-02] MEDS ORDERED: AMIO200T4 PO (13:02)
== END 2018-05-02 15:00 | disposition home or self-care (01) ==
LOC: CATH 06:39 → ICU 10:00 → CATH 05-02 15:00
PROVIDERS: ATTEND Internal Medicine Cardiovascular Disease
DX: I48.0 Paroxysmal atrial fibrillation (principal); I25.10 Atherosclerotic heart disease of native coronary artery without angina pectoris; I12.9 Hypertensive chronic kidney disease with stage 1 through stage 4 chronic kidney disease, or unspecified chronic kidney disease; N18.9 Chronic kidney disease, unspecified; E78.2 Mixed hyperlipidemia; E11.9 Type 2 diabetes mellitus without complications; Z79.01 Long term (current) use of anticoagulants; Z79.899 Other long term (current) drug therapy; E66.9 Obesity, unspecified; Z68.41 Body mass index [BMI] 40.0-44.9, adult
CPT/HCPCS: 36415; 71045; 80048; 80053; 80061; 81000; 85027; 85610; 85730; 87081; 87088; 93005; 93458

== ENCOUNTER → 2018-10-29 | Outpatient (RCR) | payer MEDICARE, MEDICAID ==
[~2018-10-29] MED LIST changes: +AMIO200T4 PO; +APIX5TAB PO; +CLOP75TA28 PO; +MELA1TAB27 PO; +PANT40TA3 PO
== END | disposition home or self-care (01) ==
PROVIDERS: ATTEND Nurse Practitioner
DX: R29.6 Repeated falls (principal)

== ENCOUNTER 2018-11-08 08:01 | Outpatient (RCR) | payer MEDICARE, MEDICAID | END 2018-11-08 08:44 | disposition home or self-care (01) | PROVIDERS: ATTEND Nurse Practitioner | DX: R26.81 Unsteadiness on feet (principal); R29.898 Other symptoms and signs involving the musculoskeletal system; R29.6 Repeated falls; S12.9XXS Fracture of neck, unspecified, sequela; M19.91 Primary osteoarthritis, unspecified site; E03.9 Hypothyroidism, unspecified; E11.9 Type 2 diabetes mellitus without complications; I10 Essential (primary) hypertension; Z95.5 Presence of coronary angioplasty implant and graft; V99.XXXS Unspecified transport accident, sequela ==

== ENCOUNTER → 2019-04-08 | Outpatient (CLI) | payer MEDICARE, MEDICAID ==
[~2019-04-08] MED LIST changes: -METO-387 PO; +MTP25TSR PO; -OXYB15TA PO; +OXYB15TA18 PO; -SIME80TA57 PO; +SIME80TA66 PO; -TRAM50TA2 PO; +TRM50T PO
--- NOTE | 2019-04-08 15:25 | Diagnostic Imaging Report ---
INDICATION: Postmenopausal screening for osteoporosis. COMPARISON: None. FINDINGS: AP Spine L1-L4: [BMD (g/cm2): 1.105] [T-Score: -0.8] [Z-Score: -0.4] [BMD Previous: na] [BMD % Change: na] LT Hip Neck: [BMD (g/cm2): 0.783] [T-Score: -1.8] [Z-Score: -1.1] LT Hip Total: [BMD (g/cm2):0.720] [T-Score:-2.3] [Z-Score: -1.9] [BMD Previous: na] [BMD % Change: na] RT Hip Neck: [BMD (g/cm2):0.849] [T-Score:-1.4] [Z-Score:-0.6] RT Hip Total: [BMD (g/cm2):0.793] [T-score:-1.7] [Z-Score:-1.3] [BMD Previous:na] [BMD % Change:na] *Indicates significant change from prior examination based on 95% confidence level. World Health Organization criteria for BMD interpretation classify patients as Normal (T-score at or above -1.0), Osteopenic (T-score between -1.0 and -2.5) or Osteoporotic (T-score at or below -2.5). LIMITATIONS AND MODIFICATION: None. FRACTURE RISK (FRAX SCORE): The ten year probability of (%): Major Osteoporotic Fracture: [8.8] Hip Fracture: [1.1] IMPRESSION: 1. Osteopenia (Low bone mass). 2. Baseline examination. 3. See below National Osteoporosis Foundation guidelines on when to potentially initiate pharmacologic therapy. Based on the National Osteoporosis Foundation Guidelines, pharmacologic treatment should be initiated in any of the following, unless clinical conditions suggest otherwise: * Any patient with prior fragility fracture of the hip or vertebrae. A spine fracture indicates 5X risk for subsequent spine fracture and 2X risk for subsequent hip fracture. * Osteoporosis (T-score <-2.5). * Postmenopausal women and men age 50 and older with low bone mass/osteopenia (T-score between -1.0 and -2.5) by DXA and 10-year major osteoporotic fracture greater than 20% or a 10-year probability of hip fracture greater than 3%. These fracture risks are supplied above in the FRAX score, if applicable. * Clinician judgment and/or patient preferences may indicate treatment for people with 10-year fracture probabilities above or below these levels. Dictated by: Dictated on workstation # [id number]
== END ==
LOC: RAD 14:03
PROVIDERS: ATTEND Nurse Practitioner Family
DX: Z13.820 Encounter for screening for osteoporosis (principal); M85.80 Other specified disorders of bone density and structure, unspecified site; Z78.0 Asymptomatic menopausal state
CPT/HCPCS: 77080

== ENCOUNTER 2019-11-30 10:40 | Observation (INO) | payer MEDICARE, MEDICAID ==
[~2019-11-30] VITALS: Ht 175.3 cm; Wt 126.3 kg
[~2019-11-30 10:40] MED LIST changes: +ASPI-1238 PO; -ASPI-983 PO; +FENO145T26 PO; -FENO145T37 PO; -OXYB15TA18 PO; +OXYB15TA19 PO; -PANT40TA3 PO; +PANT40TA52 PO; +ROPI1TAB PO; -ROPI1TAB2 PO
[2019-11-30 13:06] VITALS: BP 138/77
[2019-11-30] MEDS ORDERED: diphenhydrAMINE 25 MG TAB (BENADRYL) PO PRN (13:45)
[2019-11-30] MEDS ORDERED: hydrALAZINE (APESOLINE) 20 MG/ML VIAL IV PRN (13:45)
[2019-11-30] MEDS ORDERED: ACETAMINOPHEN 325 MG TABLET PO PRN (13:45)
[2019-11-30] MEDS ORDERED: BISACODYL 10 MG SUPP (DULCOLAX) PR PRN (13:45)
[2019-11-30] MEDS ORDERED: ANTACID SUSP 30 ML UDC (MYLANTA) PO PRN (13:45)
[2019-11-30] MEDS ORDERED: ONDANSETRON 4 MG/2 ML (SDV) Z0FRAN IV PRN (13:45)
[2019-11-30] MEDS ORDERED: ONDANSETRON 4 MG (ZOFRAN) ORAL DISSOLVE TAB PO PRN (13:45)
[2019-11-30] MEDS ORDERED: MELATONIN 3 MG TABLET PO PRN (13:45)
[2019-11-30] MEDS ORDERED: polyethylene glycoL POWDER 17 GM (MIRALAX) PACK PO PRN (13:45)
--- NOTE | 2019-11-30 15:14 | History & Physical-Hospitalist ---
History of Present Illness HPI/Chief Complaint Antoinette Lerma is a 64 year old female with PMH HTN, HLD, CAD, T2DM, who presented to [place] ER with dizziness. She reports that she was very dizzy this morning. She was feeling weak. She reports palpitations. She says she felt like this in the past but hasn't had an issue for the past couple years. She follows with Dr. Currie and had a stent put in at that time. She denies any chest pain. She denies neck, jaw, and arm pain. She denies dyspnea. She denies cough. Source: patient Exam Limitations: no limitations Date Seen 11/30/19 Time Seen by a Provider: 14:15 Attending Physician Oriana Franks MD PCP Ro Chery MD Referring Physician Date of Admission Nov 30, 2019 at 12:57 Home Medications & Allergies Home Medications Reviewed patient Home Medication Reconciliation performed by pharmacy medication reconciliations composite technician and/or nursing. Patients Allergies have been reviewed. Allergies Allergies Coded Allergies No Known Drug Allergies (Verified Allergy, Unknown, 04/28/08) Past Aecalds-Xnbxrh-Srvwme Hx Past Med/Social Hx: Reviewed Nursing Past Med/Soc Hx Patient Social History Alcohol Beverage of Choice: Vodka 2nd Hand Smoke Exposure: No Recent Hopitalizations: No Seasonal Allergies Seasonal Allergies: No Past Medical History Surgeries: Gallbladder, Hysterectomy, Orthopedic Respiratory: Sleep Apnea Currently Using CPAP: No Currently Using BIPAP: No Cardiac: Atrial Fibrillation, High Cholesterol, Hypertension Reproductive: No Musculoskeletal: Arthritis, Chronic Back Pain, Spasms HEENT: Macular Degeneration Did You Recieve Any Treatments: No Psychosocial: Anxiety, Depression History of Blood Disorders: No Family History Cancer of mouth 19 MOTHER FH: emphysema Hypertension Review of Systems Constitutional: dizziness, weakness EENTM: no symptoms reported Respiratory: no symptoms reported Cardiovascular: palpitations Gastrointestinal: no symptoms reported Genitourinary: no symptoms reported Musculoskeletal: no symptoms reported Skin: no symptoms reported Psychiatric/Neurological: No Symptoms Reported Physical Exam Physical Exam Vital Signs Vital Signs - First Documented 11/30/19 11/30/19 13:00 13:06 Temp 35.3 Pulse 59 Resp 18 B/P (MAP) 138/77 (97) Pulse Ox 100 O2 Delivery Nasal Cannula O2 Flow Rate 2.00 Capillary Refill : Height, Weight, BMI Height: 5'8.00" Weight: 288lbs. 0.2oz. [id number]; 41.84 BMI Method: General Appearance: No Apparent Distress, Obese HEENT: PERRL/EOMI, Pharynx Normal Neck: Normal Inspection, Supple Respiratory: Lungs Clear, Normal Breath Sounds, No Respiratory Distress Cardiovascular: Regular Rate, Rhythm, No Edema, No Murmur Gastrointestinal: Normal Bowel Sounds, Non Tender, Soft Extremity: Normal Inspection, Non Tender, No Pedal Edema Neurologic/Psychiatric: Alert, Oriented x3, No Motor/Sensory Deficits, Normal Mood/Affect Skin: Normal Color, Warm/Dry Results Results/Procedures Labs Patient resulted labs reviewed. Assessment/Plan Admission Diagnosis NSTEMI Admission Status: Inpatient Order (span 2 midnights) Reason for Inpatient Admission: NSTEMI requiring cardiology evaluation and likely intervention Assessment and Plan NSTEMI Paroxysmal atrial fibrillation with RVR CAD HTN HLD Troponin initially mildly elevated at [place], repeat trended up slightly Troponin 0.499 on arrival Cardiology consulted, appreciate assistance Loaded with ASA in [place] Started on therapeutic Lovenox Monitor on telemetry Trend troponin NPO for possible procedure Resume home meds once reconciled Diagnosis/Problems Diagnosis/Problems (1) NSTEMI (non-ST elevation myocardial infarction) Status: Acute (2) Atrial fibrillation with RVR Status: Acute Clinical Quality Measures DVT/VTE Risk/Contraindication: Risk Factor Score Per Nursin RFS Level Per Nursing on Admit: 4+=Very High ORIANA FRANKS MD Nov 30, 2019 15:14
--- NOTE | 2019-11-30 15:49 | Consultation-Cardiology ---
HPI-Cardiology Cardiology Consultation: Date of Consultation 11/30/19 Date of Admission Attending Physician Yasmine Min MD Admitting Physician Ro Chery MD Consulting Physician DEBBIE BUENO MD, MA, FACP, FACC, [facility] [place], CCDS Primary foxer: Dr Currie HPI: Chief Complaint: Reason for consultation: PAF, elevated troponin HPI PXI-Grsdcy-Mpbsvk Hx Patient Social History 2nd Hand Smoke Exposure: No Past Medical History PMH As described under Assessment. Family Medical History Family History: Cancer of mouth 19 MOTHER FH: emphysema Allergies and Home Medications Allergies Coded Allergies: No Known Drug Allergies (Verified Allergy, Unknown, 04/28/08) Home Medications Amiodarone HCl 200 Mg Tablet, 200 MG PO UD Take 2 tablets twice a day for one week then Take 1 tablet twice a day Prescribed by: EDDIE CURRIE on 05/02/18 1302 Apixaban 5 Mg Tablet, 5 MG PO BID Prescribed by: EDDIE CURRIE on 05/02/18 1259 Aspirin 81 Mg Tablet., 81 MG PO DAILY Prescribed by: EDDIE CURRIE on 05/02/18 1259 Baclofen 10 Mg Tablet, 5 MG PO TID PRN for MUSCLE SPASMS, (Reported) TAKES 1/2 (10MG) TABLET Clopidogrel Bisulfate 75 Mg Tablet, 75 MG PO DAILY Prescribed by: EDDIE CURRIE on 05/02/18 1259 Fenofibrate Nanocrystallized 145 Mg Tablet, 145 MG PO HS, (Reported) Imipramine HCl 50 Mg Tablet, 50 MG PO HS, (Reported) Levothyroxine Sodium 175 Mcg Tablet, 175 MCG PO DAILY, (Reported) Losartan Potassium 50 Mg Tablet, 50 MG PO DAILY, (Reported) Melatonin/Pyridoxine HCl (B6) 1 Each Tablet, 1 EACH PO HS, (Reported) Metoprolol Succinate 25 Mg Tab.er.24h, 25 MG PO DAILY Prescribed by: EDDIE CURRIE on 06/22/17 1217 Oxybutynin Chloride 15 Mg Tab.er.24, 15 MG PO DAILY, (Reported) Pantoprazole Sodium 40 Mg Tablet.dr, 40 MG PO DAILY@0700 Prescribed by: EDDIE CURRIE on 05/02/18 1259 Pioglitazone HCl 30 Mg Tablet, 30 MG PO DAILY, (Reported) Ropinirole HCl 1 Mg Tablet, 1 MG PO HS, (Reported) Sitagliptin Phosphate 100 Mg Tablet, 100 MG PO DAILY, (Reported) Tramadol HCl 50 Mg Tablet, 50 MG PO Q6H PRN for PAIN-MODERATE, (Reported) Physical Exam-Cardiology Physical Exam Vital Signs/I&O 12/01/19 12/01/19 12/01/19 12/01/19 00:25 01:00 03:54 04:00 Temp 36.3 36.6 Pulse 69 66 73 Resp 18 20 B/P (MAP) 128/58 (81) 148/62 (90) Pulse Ox 91 94 O2 Delivery Room Air Room Air Room Air 12/01/19 12/01/19 12/01/19 12/01/19 06:40 08:00 08:15 08:57 Temp 36.3 Pulse 75 93 Resp 22 B/P (MAP) 138/75 (96) Pulse Ox 94 O2 Delivery Room Air Room Air Room Air 12/01/19 12/01/19 09:37 11:57 Pulse 83 Resp 18 B/P (MAP) Pulse Ox 95 O2 Delivery Room Air Room Air 12/01/19 00:00 Intake Total 250 ml Output Total 200 ml Balance 50 ml Capillary Refill : Data Review Labs Laboratory Tests 11/30/19 14:08: Troponin I 0.499*H 11/30/19 16:14: Glucometer 110 11/30/19 20:00: Troponin I 0.618*H 11/30/19 20:12: Glucometer 152H 12/01/19 04:15: White Blood Count 8.9, Red Blood Count 4.34, Hemoglobin 11.9, Hematocrit 37, Mean Corpuscular Volume 86, Mean Corpuscular Hemoglobin 27, Mean Corpuscular Hemoglobin Concent 32, Red Cell Distribution Width 13.2, Platelet Count 317, Mean Platelet Volume 10.0, Immature Granulocyte % (Auto) 0, Neutrophils (%) (Auto) 60, Lymphocytes (%) (Auto) 30, Monocytes (%) (Auto) 6, Eosinophils (%) (Auto) 4, Basophils (%) (Auto) 1, Neutrophils # (Auto) 5.3, Lymphocytes # (Auto) 2.7, Monocytes # (Auto) 0.5, Eosinophils # (Auto) 0.3, Basophils # (Auto) 0.1, Immature Granulocyte # (Auto) 0.0, Sodium Level 137, Potassium Level 4.5, Chloride Level 106, Carbon Dioxide Level 20L, Anion Gap 11, Blood Urea Nitrogen 30H, Creatinine 1.37H, Estimat Glomerular Filtration Rate 39, BUN/Creatinine Ratio 22, Glucose Level 164H, Calcium Level 9.1, Triglycerides Level 168H, Cholesterol Level 142, LDL Cholesterol Direct 92, VLDL Cholesterol 34, HDL Cholesterol 30L A/P-Cardiology Assessment/Admission Diagnosis Coronary artery disease-underwent cardiac catheterization on 05/01/2018 revealing heavily calcified left main artery with 50 percent stenosis, nonobstructive disease. Was referred to Dr. Min for IVUS of LM and possible stenting and underwent catheterization May 20, 2018 and underwent [id number] Promus Premier to OM. 30-40% stenosis of left main, confirmed by IVUS. I will stop Plavix and continue on Eliquis Paroxysmal atrial fibrillation-maintained on Eliquis, continue to monitor. Diabetes mellitus, followed and managed by primary care physician Chronic renal insufficiency, continue to monitor renal function, followed by primary care physician Obesity, BMI 42, discussed weight loss and exercise Nonobstructive carotid artery stenosis per carotid duplex done April 2018, I will evaluate carotid ultrasound Hypertension, good control on current medication. Continue to monitor Hyperlipidemia, I will evaluate lipid profile and metabolic profile. Clinical Quality Measures DVT/VTE Risk/Contraindication: Risk Factor Score Per Nursin RFS Level Per Nursing on Admit: 4+=Very High DEBBIE BUENO MD FACP FAC CCDS Nov 30, 2019 15:49
[2019-11-30] MEDS: inSUlin ASPART (NovoLOG) 1 UNIT/0.01 ML (CHARGE PER UNIT) SC SCH ×2 (16:16→20:15)
[2019-11-30] MEDS: ENOXAPARIN 300 MG/3 ML (LOVENOX) MULTI-DOSE VIAL SQ SCH (16:16)
[2019-11-30 16:24] VITALS: BP 139/72
--- NOTE | 2019-11-30 18:50 | Consultation-Cardiology ---
HPI-Cardiology Cardiology Consultation: Date of Consultation 11/30/19 Time Seen by a Provider: 18:00 Date of Admission Attending Physician Yasmine Min MD Admitting Physician Ro Chery MD Consulting Physician DEBBIE BUENO MD, MA, FACP, FACC, FSCAI, CCDS Primary Intellectual Property Lawyer: Dr Currie HPI: Chief Complaint: Reason for consultation: PAF, elevated troponin HPI 64 yo woman who developed palpitations consisting of a rapid, irreg heart beat earlier today, went to [facility], received metoprolol, reverted to sinus, never had any cp or shortness of breath or syncope or presyncope during or before or after palpitations. Denies leg swelling. Has chronic, slowly progressive exertional shortness of breath, unchanged Review of Systems-Cardiology Review of Systems Constitutional: No weight loss, No weight gain Eyes: No vision change Ears/Nose/Throat: No ear discharge, No nasal drainage, No recent hearing loss Respiratory: As described under HPI Cardiovascular: As described under HPI Gastrointestinal: No diarrhea, No nausea, No vomiting Genitourinary: No dysuria, No hematuria, No urine frequency changes Musculoskeletal: No back pain, No joint pain Skin: No rash, No ulcerations Psychiatric/Neurological: No seizure, No focal weakness, No syncope Hematologic: No bleeding abnormalities KUJ-Fshjgv-Ojuedw Hx Patient Social History 2nd Hand Smoke Exposure: No Past Medical History PMH As described under Assessment. Family Medical History Family History: Cancer of mouth 19 MOTHER FH: emphysema Allergies and Home Medications Allergies Coded Allergies: No Known Drug Allergies (Verified Allergy, Unknown, 04/28/08) Home Medications Amiodarone HCl 200 Mg Tablet, 200 MG PO UD Take 2 tablets twice a day for one week then Take 1 tablet twice a day Prescribed by: EDDIE CURRIE on 05/02/18 1302 Apixaban 5 Mg Tablet, 5 MG PO BID Prescribed by: EDDIE CURRIE on 05/02/18 1259 Aspirin 81 Mg Tablet.dr, 81 MG PO DAILY Prescribed by: EDDIE CURRIE on 05/02/18 1259 Baclofen 10 Mg Tablet, 5 MG PO TID PRN for MUSCLE SPASMS, (Reported) TAKES 1/2 (10MG) TABLET Clopidogrel Bisulfate 75 Mg Tablet, 75 MG PO DAILY Prescribed by: EDDIE CURRIE on 05/02/18 1259 Fenofibrate Nanocrystallized 145 Mg Tablet, 145 MG PO HS, (Reported) Imipramine HCl 50 Mg Tablet, 50 MG PO HS, (Reported) Levothyroxine Sodium 175 Mcg Tablet, 175 MCG PO DAILY, (Reported) Losartan Potassium 50 Mg Tablet, 50 MG PO DAILY, (Reported) Melatonin/Pyridoxine HCl (B6) 1 Each Tablet, 1 EACH PO HS, (Reported) Metoprolol Succinate 25 Mg Tab.er.24h, 25 MG PO DAILY Prescribed by: EDDIE CURRIE on 06/22/17 1217 Oxybutynin Chloride 15 Mg Tab.er.24, 15 MG PO DAILY, (Reported) Pantoprazole Sodium 40 Mg Tablet.dr, 40 MG PO DAILY@0700 Prescribed by: EDDIE CURRIE on 05/02/18 1259 Pioglitazone HCl 30 Mg Tablet, 30 MG PO DAILY, (Reported) Ropinirole HCl 1 Mg Tablet, 1 MG PO HS, (Reported) Sitagliptin Phosphate 100 Mg Tablet, 100 MG PO DAILY, (Reported) Tramadol HCl 50 Mg Tablet, 50 MG PO Q6H PRN for PAIN-MODERATE, (Reported) Patient Home Medication List Home Medication List Reviewed: Yes Physical Exam-Cardiology Physical Exam Vital Signs/I&O 11/30/19 11/30/19 11/30/19 11/30/19 13:00 13:00 13:06 16:00 Temp 35.3 Pulse 59 63 Resp 18 B/P (MAP) 138/77 (97) Pulse Ox 100 O2 Delivery Nasal Cannula Nasal Cannula Room Air O2 Flow Rate 2.00 2.00 100.00 11/30/19 16:24 Pulse 63 Resp 18 B/P (MAP) 139/72 (94) Pulse Ox 93 O2 Delivery Room Air Capillary Refill : Constitutional: AAO x 3, well-developed, well-nourished HEENT: EOMI, hearing is well preserved; No xanthelasmas are seen Neck: carotid pulses are 2 + bilaterally, with good upstrokes Respiratory: No accessory muscle use; other (good bilateral air entry) Cardiovascular: regular rate-rhythm, S1 and S2, systolic murmur (soft AMANDA at card base) Gastrointestinal: No tender; soft; No guarding, No rebound; audible bowel sounds Extremities: No clubbing, No cyanosis, No significant edema Neurologic/Psychiatric: oriented x 3, other (moves all limbs equally) Skin: No rash on exposed areas, No ulcerations on exposed areas Data Review Labs Laboratory Tests 11/30/19 14:08: Troponin I 0.499*H 11/30/19 16:14: Glucometer 110 A/P-Cardiology Assessment/Admission Diagnosis PAF. Chronic stroke prophylaxis with apixaban Mild troponin elevation, likely type 2 KS due to A Fib with RVR in the setting of CAD Coronary artery disease-underwent cardiac catheterization on 05/01/2018 revealing heavily calcified left main artery with 50 percent stenosis, nonobstructive disease. Was referred to Dr. Min for IVUS of LM and possible stenting and underwent catheterization May 20, 2018 and underwent [id number] Promus Premier to OM. 30-40% stenosis of left main, confirmed by IVUS. Diabetes mellitus, followed and managed by primary care physician Chronic renal insufficiency, continue to monitor renal function, followed by primary care physician Obesity, BMI 42 Nonobstructive carotid artery stenosis per carotid duplex done April 2018 Hypertension Hyperlipidemia Discussion and Recomendations * Continue meds she has been on * MPI to eval for cor ischemia. If positive, then cath. If negative, the d/c * Risk factor mod reviewed and questions answered * Discussed case with Dr Min earlier today Clinical Quality Measures DVT/VTE Risk/Contraindication: Risk Factor Score Per Nursin RFS Level Per Nursing on Admit: 4+=Very High DEBBIE BUENO MD FACP FAC CCDS Nov 30, 2019 18:50
[2019-11-30] MEDS ORDERED: REGADENOSON 0.4 MG/5 ML SYR (LEXISCAN) IV ONE (19:00)
[2019-11-30 20:13] VITALS: BP 155/70
[2019-11-30] MEDS: DOCUSATE SODIUM 100 MG (COLACE) CAP PO SCH (20:41)
[2019-11-30] MEDS: SENNOSIDES 8.6 MG (SENOKOT) TAB PO SCH (20:41)
[2019-11-30] MEDS ORDERED: ENOXAPARIN 100 MG/1 ML (LOVENOX) SYR SC SCH (21:00)
[2019-12-01 00:25] VITALS: BP 128/58
[2019-12-01 03:54] VITALS: BP 148/62
[2019-12-01] MEDS: ENOXAPARIN 300 MG/3 ML (LOVENOX) MULTI-DOSE VIAL SQ SCH ×2 (03:54→16:22)
[2019-12-01 04:33] LABS: BASOPHILS # (AUTO) 0.1 10^3/uL (0.0-0.1); BASOPHILS % (AUTO) 1 % (0-10); EOSINOPHILS # (AUTO) 0.3 10^3/uL (0.0-0.3); EOSINOPHILS % (AUTO) 4 % (0-10); HEMATOCRIT 37 % (35-52); HEMOGLOBIN 11.9 g/dL (11.5-16.0); LYMPHOCYTES # (AUTO) 2.7 10^3/uL (1.0-4.0); LYMPHOCYTES % (AUTO) 30 % (12-44); MEAN CORPUSCULAR HEMOGLOBIN 27 pg (25-34); MEAN CORPUSCULAR HGB CONC 32 g/dL (32-36); MEAN CORPUSCULAR VOLUME 86 fL (80-99); MONOCYTES # (AUTO) 0.5 10^3/uL (0.0-1.0); MONOCYTES % (AUTO) 6 % (0-12); NEUTROPHILS # (AUTO) 5.3 10^3/uL (1.8-7.8); NEUTROPHILS % (AUTO) 60 % (42-75); PLATELET COUNT 317 10^3/uL (130-400); WHITE BLOOD COUNT 8.9 10^3/uL (4.3-11.0)
[2019-12-01 04:41] LABS: POTASSIUM 4.5 MMOL/L (3.6-5.0)
[2019-12-01 04:42] LABS: CALCIUM 9.1 MG/DL (8.5-10.1)
[2019-12-01 04:47] LABS: CREATININE SERUM 1.37 MG/DL (0.60-1.30)
[2019-12-01] MEDS: inSUlin ASPART (NovoLOG) 1 UNIT/0.01 ML (CHARGE PER UNIT) SC SCH ×3 (05:30→16:26)
[2019-12-01] MEDS: SENNOSIDES 8.6 MG (SENOKOT) TAB PO SCH (07:35)
[2019-12-01] MEDS: DOCUSATE SODIUM 100 MG (COLACE) CAP PO SCH (07:35)
[2019-12-01 08:15] VITALS: BP 138/75
[2019-12-01] MEDS ORDERED: REGADENOSON 0.4 MG/5 ML SYR (LEXISCAN) IV ONE (08:57)
[2019-12-01] MEDS ORDERED: ASPIRIN E.C. 81 MG (ECOTRIN) TAB PO SCH (09:00)
[2019-12-01] MEDS ORDERED: CATHETER FLUSH 10 ML SYR IV PRN (09:00)
--- NOTE | 2019-12-01 10:27 | Discharge Summary ---
Discharge Summary Hospital Course Was the Problem List Reviewed?: Yes Problems/Dx: (1) NSTEMI (non-ST elevation myocardial infarction) Status: Acute (2) Atrial fibrillation with RVR Status: Acute Hospital Course Date of Admission: Nov 30, 2019 at 12:57 Admission Diagnosis : Family Physician/Provider: Ro Chery MD Date of Discharge: 12/01/19 Discharge Diagnosis: Elevated Troponin, Atrial fib with RVR Hospital Course: Hospital Course: Pt had a brief hospital course. She was admitted for elevated troponin and new onset AF with RVR. Dr. Currie is her regular supervisor press room. She underwent cardiac stress test and further evaluation by cardiology. She was deemed stable for DC and she will have close follow up with cardiology at [facility]. Labs and Pending Lab Test: Laboratory Tests 11/30/19 14:08: Troponin I 0.499*H 11/30/19 16:14: Glucometer 110 11/30/19 20:00: Troponin I 0.618*H 11/30/19 20:12: Glucometer 152H 12/01/19 04:15: White Blood Count 8.9, Red Blood Count 4.34, Hemoglobin 11.9, Hematocrit 37, Mean Corpuscular Volume 86, Mean Corpuscular Hemoglobin 27, Mean Corpuscular Hemoglobin Concent 32, Red Cell Distribution Width 13.2, Platelet Count 317, Mean Platelet Volume 10.0, Immature Granulocyte % (Auto) 0, Neutrophils (%) (A uto) 60, Lymphocytes (%) (Auto) 30, Monocytes (%) (Auto) 6, Eosinophils (%) (Auto) 4, Basophils (%) (Auto) 1, Neutrophils # (Auto) 5.3, Lymphocytes # (Auto) 2.7, Monocytes # (Auto) 0.5, Eosinophils # (Auto) 0.3, Basophils # (Auto) 0.1, Immature Granulocyte # (Auto) 0.0, Sodium Level 137, Potassium Level 4.5, Chloride Level 106, Carbon Dioxide Level 20L, Anion Gap 11, Blood Urea Nitrogen 30H, Creatinine 1.37H, Estimat Glomerular Filtration Rate 39, BUN/Creatinine Ratio 22, Glucose Level 164H, Calcium Level 9.1, Triglycerides Level 168H, Cholesterol Level 142, LDL Cholesterol Direct 92, VLDL Cholesterol 34, HDL Cholesterol 30L Home Meds Active Amiodarone HCl 200 Mg Tablet 200 Mg PO UD Take 2 tablets twice a day for one week then Take 1 tablet twice a day Aspirin EC (Aspirin) 81 Mg Tablet. 81 Mg PO DAILY Pantoprazole Sodium 40 Mg Tablet.dr 40 Mg PO DAILY@0700 Clopidogrel (Clopidogrel Bisulfate) 75 Mg Tablet 75 Mg PO DAILY Eliquis (Apixaban) 5 Mg Tablet 5 Mg PO BID Metoprolol Succinate 25 Mg Tab.er.24h 25 Mg PO DAILY Reported Melatonin 3 mg Tablet (Melatonin/Pyridoxine HCl (B6)) 1 Each Tablet 1 Each PO HS Fenofibrate (Fenofibrate Nanocrystallized) 145 Mg Tablet 145 Mg PO HS Levothyroxine Sodium 175 Mcg Tablet 175 Mcg PO DAILY Ropinirole HCl 1 Mg Tablet 1 Mg PO HS Imipramine HCl 50 Mg Tablet 50 Mg PO HS Oxybutynin Chloride ER (Oxybutynin Chloride) 15 Mg Tab.er.24 15 Mg PO DAILY Baclofen 10 Mg Tablet 5 Mg PO TID PRN TAKES 1/2 (10MG) TABLET Tramadol HCl 50 Mg Tablet 50 Mg PO Q6H PRN Pioglitazone HCl 30 Mg Tablet 30 Mg PO DAILY Losartan Potassium 50 Mg Tablet 50 Mg PO DAILY Januvia (Sitagliptin Phosphate) 100 Mg Tablet 100 Mg PO DAILY Assessment/Pt Instructions chc 1 week Discharge Planning: <30 minutes discharge planning Discharge Instructions Discharge Diet: No Restrictions Activity as Tolerated: Yes Discharge Physical Examination Vital Signs Vital Signs Date Time Temp Pulse Resp B/P (MAP) Pulse Ox O2 Delivery O2 Flow Rate FiO2 12/01/19 09:37 83 18 95 Room Air 12/01/19 08:15 36.3 11/30/19 13:06 2.00 100.00 General Appearance: No Apparent Distress, WD/WN, Chronically ill, Obese Respiratory: Normal Breath Sounds Cardiovascular: Regular Rate, Rhythm Neurologic/Psychiatric: Alert, Oriented x3 Allergies: Coded Allergies: No Known Drug Allergies (Verified Allergy, Unknown, 04/28/08) Discharge Summary Date of Admission Nov 30, 2019 at 12:57 Date of Discharge Discharge Date: Dec 01, 2019 Admission Diagnosis NSTEMI Discharge Diagnosis (1) NSTEMI (non-ST elevation myocardial infarction) Status: Acute (2) Atrial fibrillation with RVR Status: Acute Clinical Quality Measures DVT/VTE Risk/Contraindication: Risk Factor Score Per Nursin RFS Level Per Nursing on Admit: 4+=Very High DIMITRI ESPARZA DO Dec 01, 2019 10:27
--- NOTE | 2019-12-01 13:55 | Progress Note ---
JONATAN FOUNTAIN MED STUDENT 12/01/19 0285: Progress Note Hospital Course: Patient is a 64yo female with a PMH of HTN, HLD, CAD and T2DM who presented to [place] ED c/o dizziness. She also reported palpitations and feeling weak. She follows with Dr. Currie and has a hx of a stent placement in left main artery in April 2018 and similar symptoms in the past, but has not had them for the past couple of years. She was found to have mildly elevated troponin and PAF. Cardiology was consulted, and she under went MPI to evaluate for ischemia with plans to D/C if imaging was negative. She was started on therapeutic Lovenox and restarted on her home medications. ROOPA ESPARZA DO 12/01/19 4083: Supervisory-Addendum Brief Verification & Attestation Participated in pt care: history, MDM, physical Personally performed: exam, history, MDM, supervision of care Care discussed with: Medical Student Procedures: n/a Results interpretation: Verified all documentation Verification and Attestation of Medical Student E/M Service A medical student performed and documented this service in my presence. I reviewed and verified all information documented by the medical student and made modifications to such information, when appropriate. I personally performed the physical exam and medical decision making. Roopa Esparza, Dec 01, 2019,21:43 JONATAN FOUNTAIN MED STUDENT Dec 01, 2019 13:55 ROOPA ESPARZA DO Dec 01, 2019 21:43
--- NOTE | 2019-12-01 14:17 | NUR ---
"RD ASSESSMENT PMHx: HTN; HLD; DM; afib PT INTERACTION: Pt was awake and pleasant during nutrition assessment. Pt states current appetite is good. Note PO intake 100% x1meal, per chart review. Pt states following a regular diet at home, and has no issues with chewing/swallowing food. Pt states no recent issues with nausea, vomiting, constipation, or diarrhea, and that her last BM was 10/3. Note pt currently on bowel regimen of colace BID, and senna BID, per chart review. Pt states no recent wt changes. Note unable to determine recent wt hx, per chart review. Pt states current DM management is pretty good, but she is unsure of her last HbA1c. Note unable to determine recent HbA1c, per chart review. ABNORMAL NUTRITION-RELATED LAB VALUES LOW: HDL 30 HIGH: BNU 30; cr 1.37; glu 164; TG 168 Est. kcal needs: 1900 kcal | 15 kcal/kg Est. Pro needs: 101 g Pro | 0.8 g Pro/kg PES STATEMENT: Given current appetite and PO intake, no nutrition diagnosis at this time (NO-1.1) INTERVENTION: Continue with current diet order of CHO 60g/m 0snack diet. Offered diet education on DM management, but pt declined at this time. Will attempt to offer again prior to discharge. Will continue to follow and reassess as pt needs, intake, and status change. Yenni Maria, MS RD LD"
[2019-12-01 16:24] VITALS: BP 142/44
--- NOTE | 2019-12-01 16:50 | STRESS TEST ---
DATE OF SERVICE: RESTING AND POST REGADENOSON TECHNETIUM-99M TETROFOSMIN SPECT CT IMAGING ORDERING PHYSICIAN: Dr. Villanueva. PRIMARY PHYSICIAN: Dr. Chery. ATTENDING PHYSICIAN: Dr. Min. OTHER PHYSICIAN: Dr. Currie. CLINICAL DIAGNOSIS: Coronary artery disease. Baseline images were carried out after injection of 10.61 mCi of technetium-99m Tetrofosmin. This was followed by 0.4 mg regadenoson and 30.4 mCi of technetium-99m Tetrofosmin for stress imaging. The electrocardiogram showed sinus rhythm with nonspecific ST abnormality at baseline. The electrocardiogram did not change significantly with regadenoson infusion. The patient tolerated the procedure well. Considerable hypertension was noted during the study. Review of images at rest and following stress do not reveal any significant perfusion defects after stress. Resting images have somewhat patchy uptake. The patient does exhibit some motion during image acquisition. Gated images do not show any distinct regional wall motion abnormality. Left ventricular ejection fraction is calculated to be 40%. CONCLUSIONS: 1. No distinct evidence of any significant myocardial ischemia or infarction on this study. 2. Mild impairment of global left ventricular systolic function. Left ventricular ejection fraction is calculated to be 40% on this study, but subjectively appears to be somewhat higher than that. 3. No regional wall motion abnormalities. Job ID: [id number] DocumentID: [id number] Dictated Date: 12/01/2019 13:24:07 Wood Fence Installer Date: 12/01/2019 16:50:06 Dictated By: DEBBIE VILLANUEVA MD, MA, FACP, FACC, MTDD
--- NOTE | 2019-12-01 17:08 | Progress Note - Cardiology ---
Cardiology SOAP Progress Note Subjective: No cp or palp or syncope or shortness of breath No n/v/d No focal weakness Feels well and wishes to go home Objective: I&O/Vital Signs 12/01/19 12/01/19 12/01/19 12/01/19 06:40 08:00 08:15 08:57 Temp 36.3 Pulse 75 93 Resp 22 B/P (MAP) 138/75 (96) Pulse Ox 94 O2 Delivery Room Air Room Air Room Air 12/01/19 12/01/19 12/01/19 12/01/19 09:37 11:57 12:00 12:35 Temp 36.6 Pulse 83 82 100 Resp 18 20 B/P (MAP) Pulse Ox 95 96 O2 Delivery Room Air Room Air Room Air 12/01/19 12/01/19 16:02 16:24 Temp 36.6 Pulse 92 Resp 19 B/P (MAP) 142/44 (76) Pulse Ox 96 O2 Delivery Room Air Room Air 12/01/19 00:00 Intake Total 250 ml Output Total 200 ml Balance 50 ml Weight (Pounds): 288 Weight (Ounces): 0.2 Weight (Calculated Kilograms): 130.082807 Constitutional: AAO x 3, well-developed, well-nourished Respiratory: No accessory muscle use; other (good bilateral air entry) Cardiovascular: regular rate-rhythm, S1 and S2, systolic murmur (soft AMANDA at card base) Gastrointestional: No tender; soft; No guarding, No rebound; audible bowel sounds Extremities: No clubbing, No cyanosis, No significant edema Neurologic/Psychiatric: oriented x 3, other (moves all limbs equally) Skin: No rash on exposed areas, No ulcerations on exposed areas Results/Procedures: Labs Laboratory Tests 11/30/19 20:00: Troponin I 0.618*H 11/30/19 20:12: Glucometer 152H 12/01/19 04:15: White Blood Count 8.9, Red Blood Count 4.34, Hemoglobin 11.9, Hematocrit 37, Mean Corpuscular Volume 86, Mean Corpuscular Hemoglobin 27, Mean Corpuscular Hemoglobin Concent 32, Red Cell Distribution Width 13.2, Platelet Count 317, Mean Platelet Volume 10.0, Immature Granulocyte % (Auto) 0, Neutrophils (%) (Auto) 60, Lymphocytes (%) (Auto) 30, Monocytes (%) (Auto) 6, Eosinophils (%) (Auto) 4, Basophils (%) (Auto) 1, Neutrophils # (Auto) 5.3, Lymphocytes # (Auto) 2.7, Monocytes # (Auto) 0.5, Eosinophils # (Auto) 0.3, Basophils # (Auto) 0.1, Immature Granulocyte # (Auto) 0.0, Sodium Level 137, Potassium Level 4.5, Chloride Level 106, Carbon Dioxide Level 20L, Anion Gap 11, Blood Urea Nitrogen 30H, Creatinine 1.37H, Estimat Glomerular Filtration Rate 39, BUN/Creatinine Ratio 22, Glucose Level 164H, Calcium Level 9.1, Triglycerides Level 168H, Cholesterol Level 142, LDL Cholesterol Direct 92, VLDL Cholesterol 34, HDL Cholesterol 30L 12/01/19 16:26: Glucometer 174H Laboratory Tests 12/01/19 04:15 A/P: Assessment: PAF. Chronic stroke prophylaxis with apixaban Mild troponin elevation, likely type 2 TX due to A Fib with RVR in the setting of CAD Coronary artery disease-underwent cardiac catheterization on 05/01/2018 revealing heavily calcified left main artery with 50 percent stenosis, nonobstructive disease. Was referred to Dr. Min for IVUS of LM and possible stenting and underwent catheterization May 20, 2018 and underwent [id number] Promus Premier to OM. 30-40% stenosis of left main, confirmed by IVUS MPI of 12/01/19: no evidence of significant ischemia or infarction, LVEF 40% Echo of 12/01/19: LVEF 50%, no RWMA, grade 1 quinonez dysfunction, mildly dilated LA, PASP 20-25 mmHg Diabetes mellitus, followed and managed by primary care physician Chronic renal insufficiency, continue to monitor renal function, followed by primary care physician Obesity, BMI 42 Nonobstructive carotid artery stenosis per carotid duplex done April 2018 Hypertension Hyperlipidemia Plan: * I discussed her cardiac w/u with her * Continue meds she has been on * Risk factor mod reviewed and questions answered * F/u with Dr Currie in 1-2 weeks DEBBIE BUENO MD [facility] Dec 01, 2019 17:08
== END 2019-12-01 17:46 | disposition home or self-care (01) ==
LOC: CSD 12:57
PROVIDERS: ADMIT Internal Medicine; ATTEND Internal Medicine
DX: I21.4 Non-ST elevation (NSTEMI) myocardial infarction (principal); I48.91 Unspecified atrial fibrillation; I25.10 Atherosclerotic heart disease of native coronary artery without angina pectoris; I13.10 Hypertensive heart and chronic kidney disease without heart failure, with stage 1 through stage 4 chronic kidney disease, or unspecified chronic kidney disease; N18.9 Chronic kidney disease, unspecified; E11.22 Type 2 diabetes mellitus with diabetic chronic kidney disease; E78.5 Hyperlipidemia, unspecified; I65.29 Occlusion and stenosis of unspecified carotid artery; E78.00 Pure hypercholesterolemia, unspecified; G47.30 Sleep apnea, unspecified; M19.90 Unspecified osteoarthritis, unspecified site; G89.29 Other chronic pain; F41.9 Anxiety disorder, unspecified; F32.9 Major depressive disorder, single episode, unspecified; E66.9 Obesity, unspecified; Z68.41 Body mass index [BMI] 40.0-44.9, adult; Z79.01 Long term (current) use of anticoagulants; Z79.82 Long term (current) use of aspirin; Z79.899 Other long term (current) drug therapy; Z90.710 Acquired absence of both cervix and uterus; Z86.73 Personal history of transient ischemic attack (TIA), and cerebral infarction without residual deficits; Z80.0 Family history of malignant neoplasm of digestive organs
CPT/HCPCS: 78452; 80048; 80061; 82962 ×2; 84484; 85025; 93017; A9502; G0378; G0379; 36415; 99211

== ENCOUNTER 2020-04-14 07:50 | Inpatient (IN) | payer MEDICARE, MEDICAID ==
[~2020-04-14] VITALS: Ht 172 cm; Wt 124.6 kg
[~2020-04-14 07:50] MED LIST changes: -AMIO200T4 PO; +AMIO200T6 PO
[2020-04-14] MEDS ORDERED: NS IV 1000 ML 1,000 ML ONE (08:00)
[2020-04-14] MEDS ORDERED: dilTIAZem DRIP PRE-MIX 125 ML IV ONE (08:05)
[2020-04-14 08:14] LABS: BASOPHILS # (AUTO) 0.1 10^3/uL (0.0-0.1); BASOPHILS % (AUTO) 1 % (0-10); EOSINOPHILS # (AUTO) 0.3 10^3/uL (0.0-0.3); EOSINOPHILS % (AUTO) 3 % (0-10); HEMATOCRIT 41 % (35-52); HEMOGLOBIN 13.2 g/dL (11.5-16.0); LYMPHOCYTES # (AUTO) 2.1 10^3/uL (1.0-4.0); LYMPHOCYTES % (AUTO) 21 % (12-44); MEAN CORPUSCULAR HEMOGLOBIN 28 pg (25-34); MEAN CORPUSCULAR HGB CONC 32 g/dL (32-36); MEAN CORPUSCULAR VOLUME 87 fL (80-99); MEAN PLATELET VOLUME 10.3 fL (9.0-12.2); MONOCYTES # (AUTO) 0.6 10^3/uL (0.0-1.0); MONOCYTES % (AUTO) 6 % (0-12); NEUTROPHILS % (AUTO) 69 % (42-75); PLATELET COUNT 371 10^3/uL (130-400); WHITE BLOOD COUNT 10.1 10^3/uL (4.3-11.0)
[2020-04-14] MEDS ORDERED: NS IV 1000 ML 1,000 ML IV SCH (08:15)
[2020-04-14] MEDS ORDERED: dilTIAZem DRIP PRE-MIX 125 ML IV SCH ×2 (08:15→11:00)
[2020-04-14 08:17] LABS: ALBUMIN 3.9 GM/DL (3.2-4.5); POTASSIUM 4.6 MMOL/L (3.6-5.0)
[2020-04-14 08:18] LABS: CALCIUM 9.2 MG/DL (8.5-10.1)
[2020-04-14 08:20] LABS: TOTAL PROTEIN 7.7 GM/DL (6.4-8.2)
[2020-04-14 08:21] LABS: BILIRUBIN,TOTAL 0.3 MG/DL (0.1-1.0)
[2020-04-14 08:23] LABS: CREATININE SERUM 1.43 MG/DL (0.60-1.30)
[2020-04-14 08:27] LABS: MAGNESIUM 1.9 MG/DL (1.6-2.4)
--- NOTE | 2020-04-14 08:32 | Diagnostic Imaging Report ---
INDICATION: Dizziness and chest pain. TECHNIQUE/COMPARISON: A portable chest was obtained at 8:23 AM and compared to 05/01/2018. FINDINGS: The heart is borderline in size. The mediastinal silhouette is unremarkable. The lungs are clear. There is no pneumothorax or pleural fluid. IMPRESSION: Borderline cardiomegaly with no acute process in the chest. Dictated by: Dictated on workstation # [id number]
[2020-04-14 08:38] LABS: INR 1.2 (0.8-1.4); PROTHROMBIN TIME PATIENT 15.6 SEC (12.2-14.7)
[2020-04-14 08:48] LABS: FREE T4 (FREE THYROXINE) 1.12 NG/DL (0.70-1.48)
[2020-04-14] MEDS ORDERED: APIXABAN 5 MG (ELIQUIS) TABLET PO ONE (10:00)
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
[2020-04-14] MEDS ORDERED: CATHETER FLUSH 10 ML SYR IV PRN (11:00)
--- NOTE | 2020-04-14 11:05 | Consultation-Cardiology ---
HPI-Cardiology Cardiology Consultation: Date of Consultation 04/14/20 Time Seen by a Provider: 11:15 Date of Admission 04-14-20 Attending Physician Rosana Ryan MD Admitting Physician [facility] Consulting Physician Maged Villanueva MD Primary Exchange Administrator: Dr. Currie HPI: Chief Complaint: A-fib with RVR Ms. Mendez is a 64 yr old female admitted to [facility] from the ED with a-fib with RVR. She states for the last several days she has had episodes of dizziness with SOB which comes on with or without r/t exertion. She states she saw her PCP yesterday for dizziness. She reports this morning she got up to shower, felt dizzy in the shower and fell. She denies any syncope. She reports walking to ambulance she felt dizzy as well. No c/o LE swelling. No c/o n/v/d. No c/o fever or chills. She does not report any c/o palpitations. Review of Systems-Cardiology Review of Systems Constitutional: No chills, No fever; lightheadedness Eyes: No vision change Ears/Nose/Throat: No epistaxis, No recent hearing loss Respiratory: As described under HPI Cardiovascular: As described under HPI Gastrointestinal: No constipation, No diarrhea, No nausea, No vomiting Genitourinary: No dysuria Musculoskeletal: no symptoms reported Skin: No rash on exposed areas, No ulcerations on exposed areas Psychiatric/Neurological: No anxiety, No depression, No seizure, No focal weakness, No syncope Hematologic: No bleeding abnormalities CZK-Vecnhq-Dcjszb Hx Patient Social History Smoking Status: Never a Smoker 2nd Hand Smoke Exposure: No Past Medical History PMH As described under Assessment. Family Medical History Family Medical History: No reported family h/o CAD. Family History: Cancer of mouth 19 MOTHER FH: emphysema Allergies and Home Medications Allergies Coded Allergies: No Known Drug Allergies (Verified , 04/28/08) Home Medications Apixaban 5 Mg Tablet, 5 MG PO BID, (Reported) Fenofibrate Nanocrystallized 145 Mg Tablet, 145 MG PO DAILY, (Reported) Imipramine HCl 50 Mg Tablet, 50 MG PO 1700, (Reported) Insulin Degludec 100 Unit/1 Ml Insuln.pen, 32 UNIT SC HS, (Reported) Levothyroxine Sodium 200 Mcg Tablet, 200 MCG PO DAILY, (Reported) Losartan Potassium 50 Mg Tablet, 50 MG PO DAILY, (Reported) LAST FILLED 01-08-2020 #60/60 DAY SUPPLY Melatonin 5 Mg Tablet, 5 MG PO HS PRN for SLEEP, (Reported) Metformin HCl 500 Mg Tab.er.24h, 500 MG PO BID, (Reported) Metoprolol Succinate 25 Mg Tab.er.24h, 25 MG PO DAILY, (Reported) Multivitamin 1 Each Tablet, 1 EACH PO DAILY, (Reported) Oxybutynin Chloride 15 Mg Tab.er.24, 15 MG PO 1700, (Reported) Ropinirole HCl 1 Mg Tablet, 1 MG PO HS, (Reported) Sitagliptin Phosphate 100 Mg Tablet, 100 MG PO DAILY, (Reported) LAST FILLED 02-23-2020 #30/30 DAY SUPPLY Tramadol HCl 50 Mg Tablet, 50 MG PO Q6H PRN for PAIN-MODERATE, (Reported) Physical Exam-Cardiology Physical Exam Vital Signs/I&O 04/14/20 04/14/20 04/14/20 04/14/20 07:50 10:38 10:56 11:43 Temp 36.6 36.6 36.3 Pulse 154 129 124 135 Resp 20 20 14 B/P (MAP) 90/50 (63) 123/109 (63) 114/94 (101) Pulse Ox 96 94 97 O2 Delivery Room Air Room Air 04/14/20 04/14/20 04/14/20 04/14/20 11:45 12:09 12:54 15:19 Temp 36.7 Pulse 68 133 67 Resp 16 17 B/P (MAP) 109/82 (91) 140/71 (94) Pulse Ox 97 97 95 O2 Delivery Room Air Room Air Room Air Capillary Refill : Less Than 3 Seconds Constitutional: AAO x 3, well-developed, well-nourished HEENT: PERRL, hearing is well preserved, oral hygience is good Neck: No carotid bruit; carotid pulses are 2 + bilaterally Respiratory: No accessory muscle use, No respiratory distress; chest expansion is symmetric, chest is bilaterally symmetric, lungs clear to auscultation Cardiovascular: irregularly irregular; No JVD; tachycardia Gastrointestinal: No tender; soft, round Extremities: no lower extremity edema bilateral Neurologic/Psychiatric: grossly intact (moves all extremities) Skin: No rash on exposed areas, No ulcerations on exposed areas Data Review Labs Laboratory Tests 04/14/20 07:59: White Blood Count 10.1, Red Blood Count 4.74, Hemoglobin 13.2, Hematocrit 41, Mean Corpuscular Volume 87, Mean Corpuscular Hemoglobin 28, Mean Corpuscular Hemoglobin Concent 32, Red Cell Distribution Width 13.9, Platelet Count 371, Mean Platelet Volume 10.3, Immature Granulocyte % (Auto) 0, Neutrophils (%) (Auto) 69, Lymphocytes (%) (Auto) 21, Monocytes (%) (Auto) 6, Eosinophils (%) (Auto) 3, Basophils (%) (Auto) 1, Neutrophils # (Auto) 7.0, Lymphocytes # (Auto) 2.1, Monocytes # (Auto) 0.6, Eosinophils # (Auto) 0.3, Basophils # (Auto) 0.1, Immature Granulocyte # (Auto) 0.0, Prothrombin Time 15.6H, INR Comment 1.2, Activated Partial Thromboplast Time 27, Sodium Level 140, Potassium Level 4.6, Chloride Level 105, Carbon Dioxide Level 22, Anion Gap 13, Blood Urea Nitrogen 27H, Creatinine 1.43H, Estimat Glomerular Filtration Rate 37, BUN/Creatinine Ratio 19, Glucose Level 225H, Calcium Level 9.2, Corrected Calcium 9.3, Magnesium Level 1.9, Total Bilirubin 0.3, Aspartate Amino Transf (AST/SGOT) 14, Alanine Aminotransferase (ALT/SGPT) 11, Alkaline Phosphatase 55, Myoglobin 72.6, Troponin I 0.054H, Total Protein 7.7, Albumin 3.9, Thyroid Stimulating Hormone (TSH) 12.40H, Free Thyroxine 1.12 Radiology NAME: RHINA MENDEZ [facility] REC#: [id number] PT STATUS: ADM IN : 1955 PHYSICIAN: EDGAR IBARRA MD ADMIT DATE: 04/14/20/[facility] Signed Date of Exam:04/14/20 CHEST 1 VIEW, AP/PA ONLY INDICATION: Dizziness and chest pain. TECHNIQUE/COMPARISON: A portable chest was obtained at 8:23 AM and compared to 05/01/2018. FINDINGS: The heart is borderline in size. The mediastinal silhouette is unremarkable. The lungs are clear. There is no pneumothorax or pleural fluid. IMPRESSION: Borderline cardiomegaly with no acute process in the chest. Dictated by: Dictated on workstation # [id number] Dict: 04/14/20 0830 Trans: 04/14/20 1035 [id number] Interpreted by: EDILIA BARTH MD Electronically signed by: EDILIA BARTH MD 04/14/20 1035 ECG Impression ECG Initial ECG Impression: Atrial Fibrillation w/RVR A/P-Cardiology Assessment/Admission Diagnosis PAF with RVR Minimally elevated troponin NSTEMI vs Type 2 [place] secondary to a-fib with RVR Coronary artery disease: - underwent cardiac catheterization on 05/01/[address] Currie revealing heavily calcified left main artery with 50 percent stenosis, nonobstructive disease. Was referred to Dr. Min for IVUS of LM and possible stenting - underwent catheterization May 20, [address] Currie and underwent [id number] Promus Premier to OM. 30-40% stenosis of left main, confirmed by IVUS Stress test was done on November 30, 2019 showing no significant ischemia or infarction on SPECT images, EF 40% H/O Paroxysmal atrial fibrillation-maintained on amiodarone and Eliquis Echocardiogram was done on December 01, 2019 showing normal LV size with EF 50 pe rcent, grade 1 diastolic dysfunction, left atrium mildly dilated, PA pressure 20-25 mmHg. Diabetes mellitus Chronic renal insufficiency Obesity, BMI 42 Nonobstructive carotid artery stenosis per carotid duplex done in September [address] Currie Hypertension Hyperlipidemia Hypothyroidism indicated on lab of 04-14-20 Sleep apnea for which she reports she does not use CPAP Discussion and Recomendations PAF with RVR - rate not controlled on Cardizem gtt Continue OAC with Eliquis for stroke prophylaxis H/O CAD with last intervention in 2018 - add low dose ASA Monitor lab Replace electrolytes as indicated Somewhat low BP which precludes us from adding BB Give IV Dig Advise re-eval and treat of sleep apnea as an out pt We would like to thank medical services for this consult Further recs will be based on her hospital course ROMEL BRENNAN Apr 14, 2020 11:05
[2020-04-14 11:43] VITALS: BP 114/94
[2020-04-14] MEDS ORDERED: DIGOXIN 0.25 MG/ML (LANOXIN) 2 ML AMP IV NR (11:45)
[2020-04-14 12:09] VITALS: BP 109/82
[2020-04-14] MEDS ORDERED: DIGOXIN 0.25 MG/ML (LANOXIN) 2 ML AMP IV ONE ×2 (14:15→17:30)
[2020-04-14] MEDS ORDERED: LEVO200T6 PO (14:56)
[2020-04-14] MEDS ORDERED: MELA5TAB14 PO (14:56)
[2020-04-14] MEDS ORDERED: MTP25TSR PO (14:56)
[2020-04-14] MEDS ORDERED: METF-865 PO (14:56)
[2020-04-14] MEDS ORDERED: APIX5TAB PO (14:56)
[2020-04-14] MEDS ORDERED: INSU100I32 SC (14:56)
[2020-04-14] MEDS ORDERED: MULT-1136 PO (14:57)
[2020-04-14] MEDS: CATHETER FLUSH 10 ML SYR IV SCH ×2 (14:58→21:02)
[2020-04-14 15:19] VITALS: BP 140/71
--- NOTE | 2020-04-14 15:22 | Consultation-Cardiology ---
HPI-Cardiology Cardiology Consultation: Date of Consultation 04/14/20 Time Seen by a Provider: 14:45 Date of Admission Attending Physician Rosana Ryan MD Admitting Physician [facility] Consulting Physician DEBBIE BUENO MD, MA, FACP, FACC, FSCAI, CCDS HPI: Chief Complaint: Reason for Cardiology consultation: A-fib with RVR HPI Ms. Lerma is a 64 yr old female admitted to [facility] from the ED with a-fib with RVR. She states for the last several days she has had episodes of dizziness with SOB which comes on with or without r/t exertion. She states she saw her PCP yesterday for dizziness. She reports this morning she got up to shower, felt dizzy in the shower and fell. She denies any syncope. She reports walking to ambulance she felt dizzy as well. No c/o LE swelling. No c/o n/v/d. No c/o fever or chills. She does not report any c/o palpitations. Review of Systems-Cardiology Review of Systems Constitutional: No chills, No fever; lightheadedness Eyes: No vision change Ears/Nose/Throat: No epistaxis, No recent hearing loss Respiratory: As described under HPI Cardiovascular: As described under HPI Gastrointestinal: No constipation, No diarrhea, No nausea, No vomiting Genitourinary: No dysuria Musculoskeletal: no symptoms reported Skin: No rash on exposed areas, No ulcerations on exposed areas Psychiatric/Neurological: No anxiety, No depression, No seizure, No focal weakness, No syncope Hematologic: No bleeding abnormalities WWB-Goqosp-Ountcg Hx Patient Social History Smoking Status: Never a Smoker 2nd Hand Smoke Exposure: No Have you traveled recently?: No Alcohol Use?: No Pt feels they are or have been: No Past Medical History PMH As described under Assessment. Family Medical History Family Medical History: No reported family h/o CAD. Family History: Cancer of mouth 19 MOTHER FH: emphysema Allergies and Home Medications Allergies Coded Allergies: No Known Drug Allergies (Verified , 04/28/08) Home Medications Apixaban 5 Mg Tablet, 5 MG PO BID, (Reported) Fenofibrate Nanocrystallized 145 Mg Tablet, 145 MG PO DAILY, (Reported) Imipramine HCl 50 Mg Tablet, 50 MG PO 1700, (Reported) Insulin Degludec 100 Unit/1 Ml Insuln.pen, 32 UNIT SC HS, (Reported) Levothyroxine Sodium 200 Mcg Tablet, 200 MCG PO DAILY, (Reported) Losartan Potassium 50 Mg Tablet, 50 MG PO DAILY, (Reported) LAST FILLED 01-08-2020 #60/60 DAY SUPPLY Melatonin 5 Mg Tablet, 5 MG PO HS PRN for SLEEP, (Reported) Metformin HCl 500 Mg Tab.er.24h, 500 MG PO BID, (Reported) Metoprolol Succinate 25 Mg Tab.er.24h, 25 MG PO DAILY, (Reported) Multivitamin 1 Each Tablet, 1 EACH PO DAILY, (Reported) Oxybutynin Chloride 15 Mg Tab.er.24, 15 MG PO 1700, (Reported) Ropinirole HCl 1 Mg Tablet, 1 MG PO HS, (Reported) Sitagliptin Phosphate 100 Mg Tablet, 100 MG PO DAILY, (Reported) LAST FILLED 02-23-2020 #30/30 DAY SUPPLY Tramadol HCl 50 Mg Tablet, 50 MG PO Q6H PRN for PAIN-MODERATE, (Reported) Patient Home Medication List Home Medication List Reviewed: Yes Physical Exam-Cardiology Physical Exam Vital Signs/I&O 04/14/20 04/14/20 04/14/20 04/14/20 07:50 10:38 10:56 11:43 Temp 36.6 36.6 36.3 Pulse 154 129 124 135 Resp 20 20 14 B/P (MAP) 90/50 (63) 123/109 (63) 114/94 (101) Pulse Ox 96 94 97 O2 Delivery Room Air Room Air 04/14/20 04/14/20 04/14/20 11:45 12:09 12:54 Pulse 68 133 Resp 16 B/P (MAP) 109/82 (91) Pulse Ox 97 97 O2 Delivery Room Air Room Air Capillary Refill : Less Than 3 Seconds Constitutional: AAO x 3, well-developed, well-nourished HEENT: PERRL, hearing is well preserved, oral hygience is good Neck: No carotid bruit; carotid pulses are 2 + bilaterally Respiratory: No accessory muscle use, No respiratory distress; chest expansion is symmetric, chest is bilaterally symmetric, lungs clear to auscultation Cardiovascular: irregularly irregular; No JVD; tachycardia Gastrointestinal: No tender; soft, round Extremities: no lower extremity edema bilateral Neurologic/Psychiatric: grossly intact (moves all extremities) Skin: No rash on exposed areas, No ulcerations on exposed areas Data Review Labs Laboratory Tests 04/14/20 07:59: White Blood Count 10.1, Red Blood Count 4.74, Hemoglobin 13.2, Hematocrit 41, Mean Corpuscular Volume 87, Mean Corpuscular Hemoglobin 28, Mean Corpuscular Hemoglobin Concent 32, Red Cell Distribution Width 13.9, Platelet Count 371, Mean Platelet Volume 10.3, Immature Granulocyte % (Auto) 0, Neutrophils (%) (Auto) 69, Lymphocytes (%) (Auto) 21, Monocytes (%) (Auto) 6, Eosinophils (%) (Auto) 3, Basophils (%) (Auto) 1, Neutrophils # (Auto) 7.0, Lymphocytes # (Auto) 2.1, Monocytes # (Auto) 0.6, Eosinophils # (Auto) 0.3, Basophils # (Auto) 0.1, Immature Granulocyte # (Auto) 0.0, Prothrombin Time 15.6H, INR Comment 1.2, Activated Partial Thromboplast Time 27, Sodium Level 140, Potassium Level 4.6, Chloride Level 105, Carbon Dioxide Level 22, Anion Gap 13, Blood Urea Nitrogen 27H, Creatinine 1.43H, Estimat Glomerular Filtration Rate 37, BUN/Creatinine Ratio 19, Glucose Level 225H, Calcium Level 9.2, Corrected Calcium 9.3, Magnesium Level 1.9, Total Bilirubin 0.3, Aspartate Amino Transf (AST/SGOT) 14, Alanine Aminotransferase (ALT/SGPT) 11, Alkaline Phosphatase 55, Myoglobin 72.6, Troponin I 0.054H, Total Protein 7.7, Albumin 3.9, Thyroid Stimulating Hormone (TSH) 12.40H, Free Thyroxine 1.12 A/P-Cardiology Assessment/Admission Diagnosis PAF with RVR Minimally elevated troponin: Type 2 MS secondary to a-fib with RVR Coronary artery disease: - underwent cardiac catheterization on 05/01/[address] Currie revealing heavily calcified left main artery with 50 percent stenosis, nonobstructive disease. Was referred to Dr. Min for IVUS of LM and possible stenting - underwent catheterization May 20, [address] Currie and underwent [id number] Promus Premier to OM. 30-40% stenosis of left main, confirmed by IVUS - Stress test was done on November 30, 2019 showing no significant ischemia or infarction on SPECT images, EF 40% H/O Paroxysmal atrial fibrillation-maintained on amiodarone and Eliquis Echocardiogram was done on December 01, 2019 showing normal LV size with EF 50 percent, grade 1 diastolic dysfunction, left atrium mildly dilated, PA pressure 20-25 mmHg. Diabetes mellitus Chronic renal insufficiency Obesity, BMI 42 Nonobstructive carotid artery stenosis per carotid duplex done in September [address] Currie Hypertension Hyperlipidemia Hypothyroidism indicated on lab of 04-14-20 Sleep apnea for which she reports she does not use CPAP Discussion and Recomendations Treated with iv dilt and iv dig. Currently, in NSR. Change dilt to oral. Will not be able to tolerate bb because of relatively low bp Continue OAC with Eliquis for stroke prophylaxis H/O CAD with last intervention in 2018 - add low dose ASA Monitor lab Replace electrolytes as indicated Advise re-eval and treat of sleep apnea as an out pt We would like to thank Medical services for this consult Further recs will be based on her hospital course DEBBIE BUENO MD FACP FACC CCDS Apr 14, 2020 15:22
[2020-04-14 19:07] VITALS: BP 110/59
[2020-04-14] MEDS: APIXABAN 5 MG (ELIQUIS) TABLET PO SCH (20:31)
[2020-04-14] MEDS: OXYBUTYNIN (DITROPAN) 5 MG TAB PO SCH (20:32)
[2020-04-14] MEDS ORDERED: rOPINIRole 1 MG (REQUIP) TABLET PO SCH (21:00)
[2020-04-15 00:54] VITALS: BP 146/79
[2020-04-15 03:52] LABS: CHOLESTEROL 163 MG/DL (< 200); HDL CHOLESTEROL 39 MG/DL (40-60); TRIGLYCERIDES 156 MG/DL (<150); VLDL CHOLESTEROL 31 MG/DL (5-40)
[2020-04-15 04:00] VITALS: BP 129/85
[2020-04-15] MEDS: CATHETER FLUSH 10 ML SYR IV SCH ×2 (06:27→12:55)
[2020-04-15] MEDS ORDERED: LEVOTHYROXINE 100 MCG (LEVOTHROID) TAB PO SCH (06:30)
[2020-04-15] MEDS: APIXABAN 5 MG (ELIQUIS) TABLET PO SCH (07:32)
[2020-04-15] MEDS: OXYBUTYNIN (DITROPAN) 5 MG TAB PO SCH ×2 (07:32→12:54)
[2020-04-15 07:46] VITALS: BP 138/94
[2020-04-15] MEDS ORDERED: LOSARTAN 50 MG (COZAAR) TAB PO SCH (09:00)
--- NOTE | 2020-04-15 09:39 | Progress Note - Cardiology ---
Cardiology SOAP Progress Note Subjective: Lying in bed States she did not have a good night Currently SR with controlled rate No c/o CP or SOB at this time Objective: I&O/Vital Signs 04/15/20 04/15/20 04/15/20 04/15/20 00:54 01:00 04:00 06:32 Temp 36.0 36.0 Pulse 98 122 129 102 Resp 21 25 B/P (MAP) 146/79 (101) 129/85 (100) Pulse Ox 92 91 O2 Delivery Room Air Room Air 04/15/20 04/15/20 07:36 07:46 Temp 36.5 Pulse 72 Resp 17 B/P (MAP) 138/94 (109) Pulse Ox 98 97 O2 Delivery Room Air Room Air 04/15/20 00:00 Intake Total 2100 ml Balance 2100 ml Weight (Pounds): 288 Weight (Ounces): 0.2 Weight (Calculated Kilograms): 130.742998 Constitutional: AAO x 3, well-developed, well-nourished Respiratory: No accessory muscle use, No respiratory distress; chest expansion is symmetric, chest is bilaterally symmetric, lungs clear to auscultation Cardiovascular: regular rate-rhythm; No JVD Gastrointestional: No tender; soft, round Extremities: no lower extremity edema bilateral Neurologic/Psychiatric: grossly intact (moves all extremities) Skin: No rash on exposed areas, No ulcerations on exposed areas Results/Procedures: Labs Laboratory Tests 04/14/20 20:12: Glucometer 223H 04/15/20 03:07: Triglycerides Level 156H, Cholesterol Level 163, LDL Cholesterol Direct 114, VLDL Cholesterol 31, HDL Cholesterol 39L 04/15/20 06:26: Glucometer 191H Laboratory Tests 04/14/20 07:59 A/P: Assessment: PAF with RVR - converted to SR Minimally elevated troponin: Type 2 ME secondary to a-fib with RVR Coronary artery disease: - underwent cardiac catheterization on 05/01/[address] Currie revealing heavily calcified left main artery with 50 percent stenosis, nonobstructive disease. Was referred to Dr. Min for IVUS of LM and possible stenting - underwent catheterization May 20, [address] Currie and underwent [id number] Promus Premier to OM. 30-40% stenosis of left main, confirmed by IVUS - Stress test was done on November 30, 2019 showing no significant ischemia or infarction on SPECT images, EF 40% H/O Paroxysmal atrial fibrillation-maintained on amiodarone and Eliquis Echocardiogram was done on December 01, 2019 showing normal LV size with EF 50 percent, grade 1 diastolic dysfunction, left atrium mildly dilated, PA pressure 20-25 mmHg. Diabetes mellitus Chronic renal insufficiency Obesity, BMI 42 Nonobstructive carotid artery stenosis per carotid duplex done in September [address] Currie Hypertension Hyperlipidemia Hypothyroidism indicated on lab of 04-14-20 Sleep apnea for which she reports she does not use CPAP Plan: Currently, in NSR Continue calcium channel mela BP improved, BB started, tolerating Continue OAC with Eliquis for stroke prophylaxis H/O CAD with last intervention in 2018 - add low dose ASA Advise re-eval and treat of sleep apnea as an out pt Ambulate this morning ROMEL BRENNAN Apr 15, 2020 09:39
[2020-04-15] MEDS ORDERED: DILT240C91 PO (09:45)
[2020-04-15 11:28] VITALS: BP 145/87
--- NOTE | 2020-04-15 13:27 | Short Stay Summary ---
HPI History of Present Illness: 64 yo F with h/o atrial fibrillation that presented with 1 week of worsening dizziness and some shortness of breath. States that she has missed some doses of her beta mela but denies any missed doses of her OAC. Denies any sick contacts. She has not had any fever or cough. She follows with Dr Currie and states that they have not changed any medications recently. Denies any dizziness overnight and has been getting up and going to the bathroom without any problems. 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 Patients Allergies have been reviewed. Allergies Coded Allergies: No Known Drug Allergies (Verified , 04/28/08) TRR-Ijvttd-Igbpxr Hx Patient Social History Smoking Status: Never a Smoker 2nd Hand Smoke Exposure: No Recent Hopitalizations: No Alcohol Use?: No Have you traveled recently?: No Past Medical History P. Atrial Fibrillation HTN Family Medical History Significant Family History: No Pertinent Family Hx, Hypertension Family History: Cancer of mouth 19 MOTHER FH: emphysema Review of Systems ([facility]) Constitutional: dizziness; No fever, No malaise, No weakness EENTM: no symptoms reported; No mouth pain, No nose congestion, No throat pain Respiratory: no symptoms reported; No cough, No dyspnea on exertion, No short of breath Cardiovascular: No chest pain; palpitations Gastrointestinal: no symptoms reported; No abdominal pain, No constipation, No diarrhea, No nausea, No vomiting Genitourinary: no symptoms reported; No dysuria, No frequency, No hematuria : No Musculoskeletal: no symptoms reported; No back pain, No joint pain, No muscle pain Skin: no symptoms reported Reviewed Test Results Reviewed Test Results Lab Laboratory Tests Test 04/14/20 20:12 04/15/20 03:07 04/15/20 06:26 04/15/20 10:29 Range/Units Glucometer 223 H 191 H 236 H 70-110 MG/DL Triglycerides Level 156 H <150 MG/DL Cholesterol Level 163 < 200 MG/DL LDL Cholesterol Direct 114 1-129 MG/DL VLDL Cholesterol 31 5-40 MG/DL HDL Cholesterol 39 L 40-60 MG/DL Radiology NAME: RHINA MENDEZ [facility] REC#: [id number] PT STATUS: ADM IN : 1955 PHYSICIAN: EDGAR IBARRA MD ADMIT DATE: 04/14/20/[facility] Signed Date of Exam:04/14/20 CHEST 1 VIEW, AP/PA ONLY INDICATION: Dizziness and chest pain. TECHNIQUE/COMPARISON: A portable chest was obtained at 8:23 AM and compared to 05/01/2018. FINDINGS: The heart is borderline in size. The mediastinal silhouette is unremarkable. The lungs are clear. There is no pneumothorax or pleural fluid. IMPRESSION: Borderline cardiomegaly with no acute process in the chest. Dictated by: Dictated on workstation # [id number] Dict: 04/14/20 0830 Trans: 04/14/20 1035 [id number] Interpreted by: EDILIA BARTH MD Electronically signed by: EDILIA BARTH MD 04/14/20 1035 Physical Exam-([facility]) Physical Exam Vital Signs VS - Last 72 Hours, by Label 04/14/20 04/14/20 04/14/20 04/14/20 07:50 10:38 10:56 11:43 Temp 36.6 36.6 36.3 Pulse 154 129 124 135 Resp 20 20 14 B/P (MAP) 90/50 (63) 123/109 (63) 114/94 (101) Pulse Ox 96 94 97 O2 Delivery Room Air Room Air 04/14/20 04/14/20 04/14/20 04/14/20 11:45 12:09 12:54 15:19 Temp 36.7 Pulse 68 133 67 Resp 16 17 B/P (MAP) 109/82 (91) 140/71 (94) Pulse Ox 97 97 95 O2 Delivery Room Air Room Air Room Air 04/14/20 04/14/20 04/14/20 04/14/20 19:00 19:07 20:00 20:09 Temp 36.9 Pulse 132 104 Resp 18 B/P (MAP) 110/59 (76) Pulse Ox 93 98 93 O2 Delivery Room Air Room Air Room Air 04/15/20 04/15/20 04/15/20 04/15/20 00:54 01:00 04:00 06:32 Temp 36.0 36.0 Pulse 98 122 129 102 Resp 21 25 B/P (MAP) 146/79 (101) 129/85 (100) Pulse Ox 92 91 O2 Delivery Room Air Room Air 04/15/20 04/15/20 04/15/20 04/15/20 07:36 07:46 11:28 12:42 Temp 36.5 36.0 Pulse 72 66 73 Resp 17 17 B/P (MAP) 138/94 (109) 145/87 (106) Pulse Ox 98 97 97 O2 Delivery Room Air Room Air Room Air Capillary Refill : Less Than 3 Seconds General Appearance: WD/WN, no apparent distress HEENT: PERRL/EOMI Neck: non-tender, full range of motion, supple Respiratory: chest non-tender, lungs clear, normal breath sounds, no respiratory distress, no accessory muscle use Cardiovascular: normal peripheral pulses, regular rate, rhythm, no murmur Gastrointestinal: normal bowel sounds, non tender, soft Back: no CVA tenderness, no vertebral tenderness Extremities: normal range of motion, non-tender, no pedal edema, no calf tenderness, normal capillary refill Neurologic/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: 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 nml as tested, no motor/sensory deficits, alert, normal mood/affect, oriented x 3 Skin: normal color, warm/dry Lymphatic: no adenopathy Short Stay Diagnosis Discharge Diagnosis-Short Stay Admission Diagnosis Atrial Fibrillation with RVR Final Discharge Diagnosis See Above Conclusion Plan See problem list Assessment/Plan Assessment/Plan Admission Status: Observation (1) Atrial fibrillation with RVR Status: Acute Assessment & Plan: - Cardiology consulted, appreciate recommendations, started on cardizem, now rate controlled, continue OAC (2) HERNÁN (obstructive sleep apnea) Status: Acute (3) Morbid obesity Status: Chronic MIREILLE ZHONG MD Apr 15, 2020 13:27
--- NOTE | 2020-04-15 13:43 | Discharge Summary ---
Discharge [facility] Discharge Medications New, Converted or Re-Newed RX: Transmitted to Pharmacy New Medications: Diltiazem HCl (Diltiazem 24Hr ER) 240 Mg Cap.er.24h 240 MG PO DAILY, #30 CAP 1 Refill Continued Medications: Apixaban (Eliquis) 5 Mg Tablet 5 MG PO BID, TAB Fenofibrate Nanocrystallized (Fenofibrate) 145 Mg Tablet 145 MG PO DAILY, TAB Imipramine HCl (Imipramine HCl) 50 Mg Tablet 50 MG PO 1700, TAB Insulin Degludec (Tresiba Flextouch U-100) 100 Unit/1 Ml Insuln.pen 32 UNIT SC HS, EA Levothyroxine Sodium (Levothyroxine Sodium) 200 Mcg Tablet 200 MCG PO DAILY, TAB Losartan Potassium (Losartan Potassium) 50 Mg Tablet 50 MG PO DAILY, TAB LAST FILLED 01-08-2020 #60/60 DAY SUPPLY Melatonin (Melatonin) 5 Mg Tablet 5 MG PO HS PRN for SLEEP, TAB Metformin HCl (Metformin HCl ER) 500 Mg Tab.er.24h 500 MG PO BID, TAB Metoprolol Succinate (Metoprolol Succinate) 25 Mg Tab.er.24h 25 MG PO DAILY, TAB Multivitamin (Multivitamin) 1 Each Tablet 1 EACH PO DAILY, TAB Oxybutynin Chloride (Oxybutynin Chloride ER) 15 Mg Tab.er.24 15 MG PO 1700, TAB Ropinirole HCl (Ropinirole HCl) 1 Mg Tablet 1 MG PO HS, TAB Sitagliptin Phosphate (Januvia) 100 Mg Tablet 100 MG PO DAILY, TAB LAST FILLED 02-23-2020 #30/30 DAY SUPPLY Tramadol HCl (Tramadol HCl) 50 Mg Tablet 50 MG PO Q6H PRN for PAIN-MODERATE, TAB Patient Instructions Goal/Follow Up Appt: F.u with PCP in 1 week Patient Instructions: - Make sure to review your medications list Activity & Diet Discharge Diet: Cardiac Diet Activity as Tolerated: Yes MIREILLE ZHONG MD Apr 15, 2020 13:37
--- NOTE | 2020-04-15 13:53 | Progress Note - Cardiology ---
Cardiology SOAP Progress Note Subjective: Gen weakness and malaise present, but better No n/v/d No cp or palp or syncope No focal weakness Objective: I&O/Vital Signs 04/15/20 04/15/20 04/15/20 04/15/20 04:00 06:32 07:36 07:46 Temp 36.0 36.5 Pulse 129 102 72 Resp 25 17 B/P (MAP) 129/85 (100) 138/94 (109) Pulse Ox 91 98 97 O2 Delivery Room Air Room Air Room Air 04/15/20 04/15/20 11:28 12:42 Temp 36.0 Pulse 66 73 Resp 17 B/P (MAP) 145/87 (106) Pulse Ox 97 O2 Delivery Room Air 04/15/20 00:00 Intake Total 2100 ml Balance 2100 ml Weight (Pounds): 288 Weight (Ounces): 0.2 Weight (Calculated Kilograms): 130.232935 Constitutional: AAO x 3, well-developed, well-nourished Respiratory: No accessory muscle use, No respiratory distress; chest expansion is symmetric, chest is bilaterally symmetric, lungs clear to auscultation Cardiovascular: regular rate-rhythm; No JVD Gastrointestional: No tender; soft, round Extremities: no lower extremity edema bilateral Neurologic/Psychiatric: grossly intact (moves all extremities) Skin: No rash on exposed areas, No ulcerations on exposed areas Results/Procedures: Labs Laboratory Tests 04/14/20 20:12: Glucometer 223H 04/15/20 03:07: Triglycerides Level 156H, Cholesterol Level 163, LDL Cholesterol Direct 114, VLDL Cholesterol 31, HDL Cholesterol 39L 04/15/20 06:26: Glucometer 191H 04/15/20 10:29: Glucometer 236H Laboratory Tests 04/14/20 07:59 A/P: Assessment: PAF with RVR - converted to SR Minimally elevated troponin: Type 2 TN secondary to a-fib with RVR Coronary artery disease: - underwent cardiac catheterization on 05/01/[address] Currie revealing heavily calcified left main artery with 50 percent stenosis, nonobstructive disease. Was referred to Dr. Mni for IVUS of LM and possible stenting - underwent catheterization May 20, [address] Currie and underwent 2.52w65dm Promus Premier to OM. 30-40% stenosis of left main, confirmed by IVUS - Stress test was done on November 30, 2019 showing no significant ischemia or infarction on SPECT images, EF 40% H/O Paroxysmal atrial fibrillation-maintained on amiodarone and Eliquis Echocardiogram was done on December 01, 2019 showing normal LV size with EF 50 percent, grade 1 diastolic dysfunction, left atrium mildly dilated, PA pressure 20-25 mmHg. Diabetes mellitus Chronic renal insufficiency Obesity, BMI 42 Nonobstructive carotid artery stenosis per carotid duplex done in September [address] Currie Hypertension Hyperlipidemia Hypothyroidism indicated on lab of 04-14-20 Sleep apnea for which she reports she does not use CPAP Plan: Continue calcium channel mela BP improved, BB started, tolerating Continue OAC with Eliquis for stroke prophylaxis H/O CAD with last intervention in 2018 - add low dose ASA Advise re-eval and treat of sleep apnea as an out pt Ambulate this morning DEBBIE BUENO MD FACP FAC CCDS Apr 15, 2020 13:53
[2020-04-15 14:56] VITALS: BP 133/83
== END 2020-04-15 15:45 | disposition home or self-care (01) | DRG 281 ==
LOC: EDUNIT# 07:51 → ER 07:52 → CSD 10:13
PROVIDERS: ADMIT Family Medicine; ATTEND Family Medicine
DX: I48.0 Paroxysmal atrial fibrillation (principal); I21.A1 Myocardial infarction type 2; Z68.41 Body mass index [BMI] 40.0-44.9, adult; I48.92 Unspecified atrial flutter; E11.22 Type 2 diabetes mellitus with diabetic chronic kidney disease; I12.9 Hypertensive chronic kidney disease with stage 1 through stage 4 chronic kidney disease, or unspecified chronic kidney disease; N18.9 Chronic kidney disease, unspecified; E78.00 Pure hypercholesterolemia, unspecified; E78.5 Hyperlipidemia, unspecified; G47.33 Obstructive sleep apnea (adult) (pediatric); F41.9 Anxiety disorder, unspecified; F32.9 Major depressive disorder, single episode, unspecified; I25.10 Atherosclerotic heart disease of native coronary artery without angina pectoris; E66.9 Obesity, unspecified; E03.9 Hypothyroidism, unspecified; M19.91 Primary osteoarthritis, unspecified site; H35.30 Unspecified macular degeneration; Z79.4 Long term (current) use of insulin; Z79.01 Long term (current) use of anticoagulants; Z82.49 Family history of ischemic heart disease and other diseases of the circulatory system; W19.XXXA Unspecified fall, initial encounter
CPT/HCPCS: 36415; 71045; 80053; 80061; 82962; 83735; 83874; 84439; 84443; 84484; 85025; 85610; 85730; 93005; 93041; 93306; 94760

== ENCOUNTER → 2020-05-05 | Day surgery (SDC) | payer MEDICARE, MEDICAID ==
[~2020-05-05] VITALS: Ht 172 cm; Wt 125.0 kg
[~2020-05-05] MED LIST changes: +DILT240C91 PO; +INSU100I32 SC; +LEVO200T6 PO; +LIDOCAINE 1% INJ 20 ML 20 ML VIAL INJ ONE; +LIDOCAINE 1% INJ 20 ML 20 ML VIAL ONE; +MELA5TAB14 PO; +METF-865 PO; +MULT-1136 PO
[2020-05-05 11:26] VITALS: BP 144/81
--- NOTE | 2020-05-05 12:12 | Implantation of Loop Monitor ---
Implant of Loop Monitior IMPLANTATION OF LOOP MONITOR REPORT DATE OF PROCEDURE: 05/05/20 PREOP DIAGNOSIS: Paroxysmal atrial fibrillation POSTOP DIAGNOSIS: Paroxysmal atrial fibrillation PROCEDURE DETAILS: The patient is a 64 female with history of paroxysmal atrial fibrillation requiring long-term surveillance. Therefore implantable loop recorder was discussed and agreed with the patient. Informed consent was taken. All risks and complications were discussed at length. The patient was draped and prepped in the usual sterile fashion. Local anesthesia was lidocaine, which was given in the substernal area close to the 4th intercostal space. Loop monitor [employer] with serial number [id number] was implanted according to the protocol. Steri- Strips were placed at the end of the procedure. There were no complications and the patient tolerated the procedure well. The device was interrogated with a voltage of. ANESTHESIA: Local anesthesia with lidocaine. COMPLICATIONS: None CONTRAST/FLUOROSCOPY: None CONCLUSION: Successful implantation of a loop monitor with no complication FINAL DIAGNOSIS: Paroxysmal atrial fibrillation Coronary artery disease Hypertension Hyperlipidemia EDDIE HURT MD May 05, 2020 12:12 pm
== END ==
LOC: CATH 11:04
PROVIDERS: ATTEND Internal Medicine Cardiovascular Disease
DX: I48.0 Paroxysmal atrial fibrillation (principal); I25.10 Atherosclerotic heart disease of native coronary artery without angina pectoris; E11.9 Type 2 diabetes mellitus without complications; E78.2 Mixed hyperlipidemia; G47.10 Hypersomnia, unspecified; G47.33 Obstructive sleep apnea (adult) (pediatric); I35.1 Nonrheumatic aortic (valve) insufficiency; I11.9 Hypertensive heart disease without heart failure; Z79.01 Long term (current) use of anticoagulants; Z79.899 Other long term (current) drug therapy; Z79.84 Long term (current) use of oral hypoglycemic drugs; Z88.6 Allergy status to analgesic agent
CPT/HCPCS: 33285; C1764

== ENCOUNTER 2020-06-04 09:00 | Outpatient (CLI) | payer MEDICARE, MEDICAID ==
[~2020-06-04] VITALS: Ht 172.7 cm; Wt 122.7 kg
[~2020-06-04 09:00] MED LIST changes: -LIDOCAINE 1% INJ 20 ML 20 ML VIAL INJ ONE; -LIDOCAINE 1% INJ 20 ML 20 ML VIAL ONE
== END 2020-06-04 10:43 | disposition home or self-care (01) ==
LOC: PREOP 09:00
PROVIDERS: ATTEND Urology
DX: Z01.818 Encounter for other preprocedural examination (principal)

== ENCOUNTER 2020-06-08 08:37 | Day surgery (SDC) | payer MEDICARE, MEDICAID ==
[2020-06-08] VITALS (10 sets, daily range): BP systolic 110–159; BP diastolic 59–95
[~2020-06-08] VITALS: Ht 172.7 cm; Wt 122.7 kg
--- NOTE | 2020-06-08 08:43 | Progress Note-Pre Operative ---
Pre-Operative Progress Note H&P Reviewed The H&P was reviewed, patient examined and no changes noted. Date Seen by Provider: Jun 08, 2020 Time Seen by Provider: 08:43 Date H&P Reviewed: Jun 08, 2020 Time H&P Reviewed: 08:43 Pre-Operative Diagnosis: INTRACTABLE URGENCY AND OAB BINH VALENCIA MD Jun 08, 2020 08:43
[2020-06-08] MEDS ORDERED: LACTATED RINGERS 1,000 ML IV PRN (08:45)
[2020-06-08] MEDS ORDERED: cefTRIAXone FOR IV USE 1,000 MG in WATER (STERILE) FOR INJECTION 10 ML IV ONE (08:45)
--- NOTE | 2020-06-08 08:45 | Progress Note-Post Operative ---
Post-Operative Progess Note Surgeon (s)/Cook Fishing Vessel (s) Surgeon BINH VALENCIA MD Cook Fishing Vessel: NONE Pre-Operative Diagnosis INTRACTABLE URGENCY AND OAB Post-Operative Diagnosis SAME Procedure & Operative Findings Date of Procedure 06/08/20 Procedure Performed/Findings ENDOSCOPIC BOTOX INJECTION 100U Anesthesia Type GENERAL Estimated Blood Loss Estimated blood loss (mL): NEGLIGIBLE Specimens/Packing Specimens Removed NONE Packing: NONE BINH VALENCIA MD Jun 08, 2020 08:44
--- NOTE | 2020-06-08 08:47 | Discharge Inst-Urology ---
Discharge Inst-Urology Reconcile Patient Problems Problems Reviewed?: Yes Final Diagnosis INTRACTABLE URGENCY AND OAB Patient Instructions/Follow Up Plan/Assessment/Instructions Please make appointment to been seen in office in 4 weeks. Showers, no bath In 48 hours, if no bleeding, may resume Eliquis Keep bowels soft and moving Increase oral fluids for 48 hours and then as needed. Diet and Activity as tolerated. If questions or concerns contact your physician Or seek help at emergency department. BINH VALENCIA MD Jun 08, 2020 08:47
[2020-06-08] MEDS ORDERED: ONABOTULINUMTOXINA 100 UNIT (BOTOX) VIAL INJ ONE (09:00)
[2020-06-08] MEDS ORDERED: fentaNYL INJ 100 MCG/2 ML AMP ONE (09:03)
[2020-06-08] MEDS ORDERED: MIDAZOLAM 2 MG/2 ML (VERSED) VIAL ONE (09:03)
[2020-06-08] MEDS ORDERED: 0.9% SODIUM CHLORIDE PF INJ 20 ML VIAL ONE (09:47)
[2020-06-08] MEDS ORDERED: ONDANSETRON 4 MG/2 ML (SDV) Z0FRAN ONE (10:20)
[2020-06-08] MEDS ORDERED: proPOfol 200 MG/20 ML (DIPRIVAN) VIAL IV ONE (10:20)
[2020-06-08] MEDS ORDERED: LIDOCAINE PF 2% 5 ML (XYLOCAINE) VIAL ONE (10:20)
[2020-06-08] MEDS ORDERED: SEVOFLURANE (ULTANE) 15 ML INHAL SOLN ONE (10:20)
[2020-06-08] MEDS ORDERED: ONDANSETRON 4 MG/2 ML (SDV) Z0FRAN IVP PRN (10:45)
[2020-06-08] MEDS ORDERED: MEPERIDINE (DEMEROL) INJ 50 MG/ML IVP ONE (10:45)
[2020-06-08] MEDS ORDERED: morphine INJ 10 MG/ML 1ML (SYR OR VIAL) IVP ONE (10:45)
[2020-06-08] MEDS ORDERED: PHEN-639 PO (11:47)
[2020-06-08] MEDS ORDERED: NITR-65 PO (11:47)
--- NOTE | 2020-06-08 12:45 | Anesthesia-General Post-Op ---
General Patient Condition Mental Status/LOC: Same as Preop Cardiovascular: Satisfactory Nausea/Vomiting: Absent Respiratory: Satisfactory Pain: Controlled Complications: Absent Post Op Complications Complications None Follow Up Care/Instructions Patient Instructions None needed. Anesthesia/Patient Condition Patient Condition Patient is doing well, no complaints, stable vital signs, no apparent adverse anesthesia problems. No complications reported per nursing. FOSTER CÁRDENAS CRNA Jun 08, 2020 12:45
--- NOTE | 2020-06-08 16:52 | OPERATIVE REPORT ---
DATE OF SERVICE: 06/08/2020 PREOPERATIVE DIAGNOSES: Intractable urgency and overactive bladder. POSTOPERATIVE DIAGNOSES: Intractable urgency and overactive bladder. OPERATION PERFORMED: Endoscopic Botox injection. SURGEON: Vijay Valencia MD ANESTHESIA: General. COMPLICATIONS: None. DESCRIPTION OF PROCEDURE: Under satisfactory general anesthesia, the patient in lithotomy position, genitalia were prepped and draped in the usual sterile fashion. Cystoscope was introduced under vision and the bladder was half filled. I went ahead and injected the Botox in 20 sites as described in the technique. A 0.5 mL for a total of 100 units of Botox. There was minimal bleeding. Bladder was evacuated and the cystoscope was removed. The patient tolerated the procedure and anesthesia well and was sent to recovery room in stable condition. Job ID: [id number] DocumentID: [id number] Dictated Date: 06/08/2020 10:32:51 Client Support Professional Date: 06/08/2020 16:52:08 Dictated By: VIJAY VALENCIA MD
== END 2020-06-08 12:45 | disposition home or self-care (01) ==
LOC: SDC 08:37
PROVIDERS: ATTEND Urology
DX: N32.81 Overactive bladder (principal); R39.15 Urgency of urination; I48.91 Unspecified atrial fibrillation; I10 Essential (primary) hypertension; I25.10 Atherosclerotic heart disease of native coronary artery without angina pectoris; E78.5 Hyperlipidemia, unspecified; E11.9 Type 2 diabetes mellitus without complications; M19.90 Unspecified osteoarthritis, unspecified site; F32.9 Major depressive disorder, single episode, unspecified; F41.9 Anxiety disorder, unspecified; Z79.899 Other long term (current) drug therapy; Z88.8 Allergy status to other drugs, medicaments and biological substances; Z79.84 Long term (current) use of oral hypoglycemic drugs; Z79.890 Hormone replacement therapy; Z90.710 Acquired absence of both cervix and uterus
CPT/HCPCS: 82962; 87081

== ENCOUNTER → 2020-10-21 | Outpatient (CLI) | payer MEDICARE, MEDICAID ==
[~2020-10-21] MED LIST changes: +NITR-65 PO; +PHEN-639 PO; +SIME80TA60 PO; -SIME80TA66 PO
--- NOTE | 2020-10-21 12:46 | Diagnostic Imaging Report ---
INDICATION: Diabetes. Lower extremity claudication. FINDINGS: DEWAYNE was performed which shows an DEWAYNE of 1.29 on the right and 1.35 on the left. IMPRESSION: Normal ABIs. Dictated by: Dictated on workstation # [id number]
== END ==
LOC: RAD 09:30
PROVIDERS: ATTEND Nurse Practitioner Family
DX: I73.9 Peripheral vascular disease, unspecified (principal); E11.9 Type 2 diabetes mellitus without complications
CPT/HCPCS: 93922

== ENCOUNTER → 2020-11-17 | Outpatient (CLI) | payer MEDICARE, MEDICAID ==
--- NOTE | 2020-11-17 17:14 | Diagnostic Imaging Report ---
PROCEDURE: US Bilateral lower extremity arterial. TECHNIQUE: Multiple real-time grayscale images are obtained through both lower extremity arterial systems with color Doppler imaging and color Doppler spectral analysis. INDICATION: Bilateral leg pain with discoloration of feet. FINDINGS: Color Doppler imaging shows triphasic flow from the common femoral region throughout to the ankle. Peak velocity at the common femoral level is 126 cm/s right and 92 cm/s left. Profundus femoral at right is 101 cm/s and left is 49 cm/s. Superficial femoral at right is 122 cm/s and left is 86 cm/s. Popliteal at right is 93 cm/s and left is 67 cm/s. Anterior tibial at right is 105 cm/s and left is 62 cm/s. Posterior tibial at right is 96 cm/s and left is 80 cm/s. Dorsalis pedis at right is 116 cm/s and dorsalis pedis at left is 87 cm/s. IMPRESSION: Very minimal atherosclerotic plaquing noted within the lower extremities with normal triphasic flow throughout to the feet. Dictated by: Dictated on workstation # [id number]
--- NOTE | 2020-11-17 17:35 | Diagnostic Imaging Report ---
INDICATION: Peripheral vascular disease with bilateral arm pain. FINDINGS: Right upper extremity shows biphasic and triphasic flow throughout from the subclavian artery to the distal radius and ulna. The velocities at the distal radial artery are 100 cm/s and 44 cm/s. Ulnar artery is 76 cm/s and 90 cm/s. Left upper extremity shows a triphasic flow in the subclavian, axillary, and brachial region. The distal ulnar artery shows monophasic flow with dampened velocity at 38 cm/s. The radial artery shows a normal triphasic flow with velocity of 65 cm/s distally. IMPRESSION: 1. Major vessels appear widely patent. There is some hemodynamic change in the very distal portion of the left ulnar artery. Dictated by: Dictated on workstation # [id number]
== END ==
LOC: RAD 13:00
PROVIDERS: ATTEND Nurse Practitioner Family
DX: I73.9 Peripheral vascular disease, unspecified (principal)
CPT/HCPCS: 93925; 93930

== ENCOUNTER 2021-05-05 10:20 | Emergency (ER) | payer MEDICARE, MEDICAID ==
[~2021-05-05] VITALS: Ht 172.7 cm; Wt 119.3 kg
[~2021-05-05 10:20] MED LIST changes: -AMIO200T6 PO; +AMIO200T65 PO; -SIME80TA60 PO; +SIME80TA72 PO
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
[2021-05-05] MEDS ORDERED: NS IV 1000 ML 1,000 ML IV SCH (10:45)
[2021-05-05 11:50] LABS: BASOPHILS % (AUTO) 1 % (0-10); EOSINOPHILS % (AUTO) 0 % (0-10); HEMATOCRIT 43 % (35-52); HEMOGLOBIN 13.7 g/dL (11.5-16.0); LYMPHOCYTES # (AUTO) 0.8 10^3/uL (1.0-4.0); LYMPHOCYTES % (AUTO) 10 % (12-44); MEAN CORPUSCULAR HEMOGLOBIN 27 pg (25-34); MEAN CORPUSCULAR HGB CONC 32 g/dL (32-36); MEAN CORPUSCULAR VOLUME 85 fL (80-99); MEAN PLATELET VOLUME 9.9 fL (9.0-12.2); MONOCYTES # (AUTO) 0.6 10^3/uL (0.0-1.0); MONOCYTES % (AUTO) 7 % (0-12); NEUTROPHILS # (AUTO) 6.6 10^3/uL (1.8-7.8); NEUTROPHILS % (AUTO) 81 % (42-75); PLATELET COUNT 323 10^3/uL (130-400); WHITE BLOOD COUNT 8.1 10^3/uL (4.3-11.0)
[2021-05-05 11:51] LABS: ALBUMIN 3.8 GM/DL (3.2-4.5)
[2021-05-05 11:52] LABS: POTASSIUM 4.1 MMOL/L (3.6-5.0)
[2021-05-05 11:54] LABS: TOTAL PROTEIN 7.4 GM/DL (6.4-8.2)
[2021-05-05 11:56] LABS: BILIRUBIN,TOTAL 0.5 MG/DL (0.1-1.0)
[2021-05-05 11:58] LABS: CREATININE SERUM 1.72 MG/DL (0.60-1.30)
[2021-05-05 12:01] LABS: MAGNESIUM 2.2 MG/DL (1.6-2.4)
--- NOTE | 2021-05-05 12:18 | Diagnostic Imaging Report ---
INDICATION: Weakness and fall. TIME OF EXAM: 11:45 AM Correlation is made with prior chest from 04/14/2020. Heart size normal. Monitoring device overlies left chest. Lungs are clear. No infiltrates are seen. There is no effusion or pneumothorax. Postop changes in lower cervical spine. IMPRESSION: No acute cardiopulmonary process is detected. Dictated by: Dictated on workstation # [id number]
[2021-05-05] MEDS ORDERED: APIXABAN 5 MG (ELIQUIS) TABLET PO ONE (12:45)
[2021-05-05] MEDS ORDERED: AMIODARONE 200 MG (CORDARONE) TAB PO STA (13:53)
[2021-05-05] MEDS ORDERED: AMIO200T65 PO (13:53)
[2021-05-05 14:51] VITALS: BP 112/70
== END 2021-05-05 14:51 | disposition home or self-care (01) ==
LOC: EDUNIT# 10:25 → ER 10:26
DX: I47.1 Supraventricular tachycardia (principal); I48.91 Unspecified atrial fibrillation; J10.1 Influenza due to other identified influenza virus with other respiratory manifestations; G89.29 Other chronic pain; M79.605 Pain in left leg; Z20.822 Contact with and (suspected) exposure to COVID-19; Z79.01 Long term (current) use of anticoagulants
CPT/HCPCS: 36415; 71045; 80053; 83735; 85025; 87636; 93005

== ENCOUNTER 2021-05-18 13:24 | Inpatient (IN) | payer MEDICARE, MEDICAID ==
[~2021-05-18] VITALS: Ht 172 cm; Wt 118.0 kg
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
[2021-05-18 14:01] LABS: BASOPHILS # (AUTO) 0.1 10^3/uL (0.0-0.1); BASOPHILS % (AUTO) 1 % (0-10); EOSINOPHILS # (AUTO) 0.5 10^3/uL (0.0-0.3); EOSINOPHILS % (AUTO) 4 % (0-10); HEMATOCRIT 41 % (35-52); HEMOGLOBIN 12.8 g/dL (11.5-16.0); LYMPHOCYTES # (AUTO) 2.9 10^3/uL (1.0-4.0); LYMPHOCYTES % (AUTO) 25 % (12-44); MEAN CORPUSCULAR HEMOGLOBIN 27 pg (25-34); MEAN CORPUSCULAR HGB CONC 31 g/dL (32-36); MEAN CORPUSCULAR VOLUME 86 fL (80-99); MEAN PLATELET VOLUME 9.9 fL (9.0-12.2); MONOCYTES # (AUTO) 0.8 10^3/uL (0.0-1.0); MONOCYTES % (AUTO) 7 % (0-12); NEUTROPHILS # (AUTO) 7.3 10^3/uL (1.8-7.8); NEUTROPHILS % (AUTO) 63 % (42-75); PLATELET COUNT 603 10^3/uL (130-400); WHITE BLOOD COUNT 11.6 10^3/uL (4.3-11.0)
[2021-05-18 14:09] LABS: ALBUMIN 3.7 GM/DL (3.2-4.5)
[2021-05-18 14:10] LABS: POTASSIUM 4.5 MMOL/L (3.6-5.0)
[2021-05-18 14:11] LABS: CALCIUM 9.4 MG/DL (8.5-10.1)
[2021-05-18 14:12] LABS: TOTAL PROTEIN 7.8 GM/DL (6.4-8.2)
[2021-05-18 14:13] LABS: INR 1.1 (0.8-1.4); PROTHROMBIN TIME PATIENT 14.6 SEC (12.2-14.7)
[2021-05-18 14:14] LABS: BILIRUBIN,TOTAL 0.3 MG/DL (0.1-1.0)
[2021-05-18 14:16] LABS: CREATININE SERUM 1.33 MG/DL (0.60-1.30)
[2021-05-18] MEDS ORDERED: LACTATED RINGERS 1,000 ML IV SCH (14:45)
[2021-05-18] MEDS ORDERED: HOLD METFORMIN - RECEIVED CONTRAST 20 ML VIAL IV SCH (15:00)
[2021-05-18] MEDS ORDERED: NS 100 ML (IVPB) BAG IV ONE (15:00)
[2021-05-18] MEDS ORDERED: IOHEXOL 350 MG/ML 100 ML (OMNIPAQUE 350) VIAL IV ONE (15:00)
[2021-05-18] MEDS ORDERED: CATHETER FLUSH 10 ML SYR IV PRN (15:00)
--- NOTE | 2021-05-18 15:26 | Diagnostic Imaging Report ---
PROCEDURE: CT right lower extremity with contrast. TECHNIQUE: Multiple contiguous axial CT images of the right extremity were obtained after intravenous administration of iodinated contrast. Auto Exposure Controls were utilized during the CT exam to meet ALARA standards for radiation dose reduction. INDICATION: Right thigh wound, swelling. COMPARISON: None available. FINDINGS: Moderate soft tissue swelling and skin thickening is present in the posterior aspect of the proximal right thigh. Subcutaneous reticulations are present. These features are likely due to cellulitis per reported history. There is no soft tissue gas. By CT imaging, there is no rim-enhancing fluid collection that would suggest a drainable abscess. Muscular of the visualized portions of the right thigh is normal. No fascial thickening is appreciated to suggest fasciitis. No fracture or osseous erosions within the visualized aspects of the right femur. Benign sclerotic bone island within the right femoral neck. No hip effusion. IMPRESSION: 1. No soft tissue gas or drainable abscess. 2. Skin thickening and subcutaneous reticulations are likely due to cellulitis. 3. No CT features that would suggest osteomyelitis. Dictated by: Dictated on workstation # [id number]
[2021-05-18] MEDS ORDERED: VANCOMYCIN INJECTION 1,000 MG in NS (IVPB) 250 ML IV ONE (15:30)
[2021-05-18] MEDS ORDERED: PIPERACILLIN SODIUM/TAZOBACTAM 4.5 GM in NS (IVPB) 100 ML IV ONE (15:30)
[2021-05-18] MEDS ORDERED: VANCOMYCIN 2000 MG/NS 500 ML IVPB IV NR ×2 (15:30)
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
[2021-05-18 16:46] LABS: BILIRUBIN,URINE NEGATIVE (NEGATIVE); CLARITY,URINE CLEAR; COLOR,URINE YELLOW; GLUCOSE, URINE (UA) 3+ (NEGATIVE); KETONES,URINE NEGATIVE (NEGATIVE); LEUKOCYTE ESTERASE ,URINE 1+ (NEGATIVE); NITRITE,URINE NEGATIVE (NEGATIVE); PH,URINE 5.5 (5-9); PROTEIN,URINE NEGATIVE (NEGATIVE)
[2021-05-18 16:51] LABS: BACTERIA,URINE LARGE /HPF; YEAST,URINE LARGE /HPF
[2021-05-18] MEDS ORDERED: ONDANSETRON 4 MG/2 ML (SDV) Z0FRAN IV PRN (17:15)
[2021-05-18] MEDS ORDERED: MILK OF MAGNESIA 400 MG/5 ML 30 ML UDC PO PRN (17:15)
[2021-05-18] MEDS ORDERED: polyethylene glycoL POWDER 17 GM (MIRALAX) PACK PO PRN (17:15)
[2021-05-18] MEDS ORDERED: BISACODYL 10 MG SUPP (DULCOLAX) PR PRN (17:15)
[2021-05-18] MEDS ORDERED: VANCOMYCIN INJECTION 0.1 MG in NS (IVPB) 250 ML IV SCH (17:15)
[2021-05-18] MEDS ORDERED: NALOXONE 0.4 MG/ML 1 ML (NARCAN) VIAL IV PRN (17:15)
[2021-05-18] MEDS ORDERED: diphenhydrAMINE 25 MG TAB (BENADRYL) PO PRN (17:15)
[2021-05-18] MEDS ORDERED: ONDANSETRON 4 MG (ZOFRAN) ORAL DISSOLVE TAB PO PRN (17:15)
[2021-05-18] MEDS ORDERED: ANTACID SUSP 30 ML UDC (MYLANTA) PO PRN (17:15)
[2021-05-18] MEDS ORDERED: morphine INJ 4 MG/ML 1 ML (VIAL/SYRINGE) IV PRN (17:15)
[2021-05-18] MEDS ORDERED: LACTULOSE SYRUP 10GM/15ML (ENULOSE) 30ML UDC PO PRN (17:15)
[2021-05-18] MEDS ORDERED: diphenhydrAMINE 50 MG/ML INJ (BENADRYL) IVP PRN (17:15)
[2021-05-18] MEDS ORDERED: CALCIUM CARBONATE 500 MG (TUMS) TAB.CHEW PO PRN (17:15)
[2021-05-18] MEDS ORDERED: ACETAMINOPHEN 325 MG TABLET PO PRN (17:15)
[2021-05-18] MEDS ORDERED: MELATONIN 3 MG TABLET PO PRN (17:15)
[2021-05-18 17:21] VITALS: BP 146/79
--- NOTE | 2021-05-18 19:05 | History & Physical-Hospitalist ---
History of Present Illness HPI/Chief Complaint Chief complaint: Right upper thigh cellulitis with abscess History of present illness: This is a 66-year-old white female clinic patient and [facility] who was sent to the ER by Dr. Morales due to failure of outpatient oral antibiotics for right upper lateral leg cellulitis status post incision and drainage of abscess. She reports that it started several days ago and it was opened and drained at the clinic and placed on antibiotics but she continues to have increased redness and pain and since she failed oral antibiotic she will need IV antibiotics and Dr. Ramsey consultation. Source: patient Exam Limitations: no limitations Date Seen 05/18/21 Time Seen by a Provider: 14:00 Attending Physician Roopa Baez DO PCP No,Local Physician Referring Physician Date of Admission May 18, 2021 at 15:38 Home Medications & Allergies Home Medications Reviewed patient Home Medication Reconciliation performed by pharmacy medication reconciliations clinical dietetic technician and/or nursing. Patients Allergies have been reviewed. Allergies Allergies Coded Allergies naproxen (Verified Adverse Reaction, Unknown, DECREASES KIDNEY FUNCTION, 06/04/20) Past Atthrlx-Gmkonz-Idexhj Hx Patient Social History Marrital Status: single Employed/Student: unemployed Tobacco Use?: No Smoking Status: Never a Smoker Use of E-Cig and/or Vaping dev: No Substance use?: No Alcohol Use?: Yes Alcohol type: Hard Liquor Alcohol Frequency: Once in a while Pt feels they are or have been: No Immunizations Up To Date First/Initial COVID19 Vaccinat: APRIL 2020 Second COVID19 Vaccination Paramjit: MAY 2020 Tetanus Booster (TDap): Less Than 5 Years Hepatitis A: No Hepatitis B: No Seasonal Allergies Seasonal Allergies: No Current Status status: No status: No Advance Directives: No Communicates: Verbally Primary Language: Moroccan Preferred Spoken Language: Moroccan Is interpretation needed?: No Sensory deficits: Vision impairment Implanted or Applied Medical D: None Past Medical History Surgeries: Appendectomy, Gallbladder, Hysterectomy, Orthopedic Currently Using CPAP: No Currently Using BIPAP: No Atrial Fibrillation, High Cholesterol, Hypertension Arthritis, Chronic Back Pain, Spasms Diabetes, Insulin dep, Hypothyroidsim Macular Degeneration Did You Recieve Any Treatments: No Anxiety, Depression Blood Disorders: No P. Atrial Fibrillation HTN Family Medical History Cancer of mouth 19 MOTHER FH: emphysema No Pertinent Family Hx, Hypertension Review of Systems Constitutional: see HPI, malaise, weakness EENTM: no symptoms reported Respiratory: no symptoms reported Cardiovascular: no symptoms reported Gastrointestinal: no symptoms reported Genitourinary: no symptoms reported Musculoskeletal: no symptoms reported Skin: see HPI Psychiatric/Neurological: No Symptoms Reported All Other Systems Reviewed Negative Unless Noted: Yes Physical Exam Physical Exam Vital Signs Vital Signs - First Documented 05/18/21 05/18/21 13:30 17:21 Temp 36.3 Pulse 79 Resp 18 B/P (MAP) 138/86 (103) Pulse Ox 92 O2 Delivery Room Air Capillary Refill : Less Than 3 Seconds Height, Weight, BMI Height: 5'8.00" Weight: 288lbs. 0.2oz. [id number]; 39.88 BMI Method: General Appearance: No Apparent Distress, Chronically ill Eyes: Right Eye Normal Inspection, Right Eye PERRL HEENT: PERRL/EOMI, Normal ENT Inspection, Pharynx Normal, Moist Mucous M embranes Neck: Full Range of Motion, Normal Inspection, Non Tender Respiratory: Chest Non Tender, Lungs Clear, Normal Breath Sounds, No Accessory Muscle Use, No Respiratory Distress Cardiovascular: Regular Rate, Rhythm, No Edema, No Gallop, No JVD, No Murmur, Normal Peripheral Pulses Gastrointestinal: Normal Bowel Sounds, No Organomegaly, No Pulsatile Mass, Non Tender, Soft Back: Normal Inspection, No CVA Tenderness, No Vertebral Tenderness Extremity: Normal Capillary Refill, Normal Inspection, Normal Range of Motion, Non Tender, No Calf Tenderness, No Pedal Edema Neurologic/Psychiatric: Alert, Oriented x3, No Motor/Sensory Deficits, Normal Mood/Affect Skin: Normal Color, Warm/Dry, Other (Right lateral cellulitis with abscess drainage with erythema) Lymphatic: No Adenopathy Results Results/Procedures Labs Laboratory Tests 05/18/21 13:45 Patient resulted labs reviewed. Assessment/Plan Admission Diagnosis Assessment: Right upper lateral thigh cellulitis status post incision and drainage of abscess failed oral antibiotics Diabetes Atrial fibrillation Plan: IV antibiotics Dr. Ramsey consultation Admission Status: Inpatient Order (span 2 midnights) Reason for Inpatient Admission: Cellulitis with abscess Diagnosis/Problems Diagnosis/Problems (1) Cellulitis Status: Acute ROOPA BAEZ DO May 18, 2021 19:05
[2021-05-18 19:35] VITALS: BP 107/53
[2021-05-18] MEDS: inSUlin ASPART (NovoLOG) 1 UNIT/0.01 ML (CHARGE PER UNIT) SC SCH (21:32)
[2021-05-18] MEDS: DOCUSATE SODIUM 100 MG (COLACE) CAP PO SCH (21:54)
[2021-05-18] MEDS: SENNOSIDES 8.6 MG (SENOKOT) TAB PO SCH (21:54)
[2021-05-18] MEDS: APIXABAN 5 MG (ELIQUIS) TABLET PO SCH (21:54)
[2021-05-18] MEDS: PIPERACILLIN SODIUM/TAZOBACTAM 4.5 GM in NS (IVPB) 100 ML IV SCH (21:55)
[2021-05-19] VITALS: BP 125/72
[2021-05-19 04:00] VITALS: BP 124/67
[2021-05-19 05:35] LABS: BASOPHILS # (AUTO) 0.1 10^3/uL (0.0-0.1); BASOPHILS % (AUTO) 1 % (0-10); EOSINOPHILS # (AUTO) 0.6 10^3/uL (0.0-0.3); EOSINOPHILS % (AUTO) 5 % (0-10); HEMATOCRIT 41 % (35-52); HEMOGLOBIN 12.8 g/dL (11.5-16.0); LYMPHOCYTES # (AUTO) 3.4 10^3/uL (1.0-4.0); LYMPHOCYTES % (AUTO) 30 % (12-44); MEAN CORPUSCULAR HEMOGLOBIN 27 pg (25-34); MEAN CORPUSCULAR HGB CONC 31 g/dL (32-36); MEAN CORPUSCULAR VOLUME 86 fL (80-99); MEAN PLATELET VOLUME 9.8 fL (9.0-12.2); MONOCYTES # (AUTO) 0.6 10^3/uL (0.0-1.0); MONOCYTES % (AUTO) 5 % (0-12); NEUTROPHILS # (AUTO) 6.5 10^3/uL (1.8-7.8); NEUTROPHILS % (AUTO) 58 % (42-75); PLATELET COUNT 584 10^3/uL (130-400); WHITE BLOOD COUNT 11.2 10^3/uL (4.3-11.0)
[2021-05-19 05:46] LABS: ALBUMIN 3.4 GM/DL (3.2-4.5); POTASSIUM 4.5 MMOL/L (3.6-5.0)
[2021-05-19 05:49] LABS: TOTAL PROTEIN 7.2 GM/DL (6.4-8.2)
[2021-05-19 05:51] LABS: BILIRUBIN,TOTAL 0.3 MG/DL (0.1-1.0)
[2021-05-19 05:52] LABS: CREATININE SERUM 1.16 MG/DL (0.60-1.30)
[2021-05-19] MEDS: PIPERACILLIN SODIUM/TAZOBACTAM 4.5 GM in NS (IVPB) 100 ML IV SCH ×3 (06:01→22:00)
--- NOTE | 2021-05-19 06:05 | Progress Note - Hospitalist ---
Subjective HPI/CC On Admission Date Seen by Provider: May 19, 2021 Time Seen by Provider: 10:00 Chief complaint: Right upper thigh cellulitis with abscess History of present illness: This is a 66-year-old white female clinic patient and formerly [facility] who was sent to the ER by Dr. Morales due to failure of outpatient oral antibiotics for right upper lateral leg cellulitis status post incision and drainage of abscess. She reports that it started several days ago and it was opened and drained at the clinic and placed on antibiotics but she continues to have increased redness and pain and since she failed oral anti biotic she will need IV antibiotics and Dr. Ramsey consultation. Subjective/Events-last exam Patient doing a lot better Cellulitis is much improved Dr. Ramsey will evaluate Labs reviewed Home meds will be restarted Cough residual from influenza will require nebulized treatments Review of Systems General: Fatigue, Malaise Pulmonary: Cough Focused Exam Lactate Level 05/18/21 13:45: Lactic Acid Level 1.34 Objective Exam Vital Signs Vital Signs Date Time Temp Pulse Resp B/P (MAP) Pulse Ox O2 Delivery O2 Flow Rate FiO2 05/20/21 03:52 36.3 71 17 149/69 (95) 94 Nasal Cannula 2.00 Capillary Refill : Less Than 3 Seconds General Appearance: No Apparent Distress, WD/WN, Chronically ill Respiratory: Lungs Clear, Normal Breath Sounds, Decreased Breath Sounds Cardiovascular: Regular Rate, Rhythm Neurologic/Psychiatric: Alert, Oriented x3 Skin: Other (Right upper lateral thigh cellulitis much improved) Results/Procedures Lab Laboratory Tests 05/19/21 05:12 Patient resulted labs reviewed. Assessment/Plan Assessment and Plan Assess & Plan/Chief Complaint Assessment: Right upper lateral thigh cellulitis status post incision and drainage of abscess failed oral antibiotics Diabetes Atrial fibrillation Plan: IV antibiotics Dr. Ramsey consultation 05/19/2021: Supportive care Restart home meds IV antibiotics Diagnosis/Problems Diagnosis/Problems (1) Cellulitis Status: Acute DIMITRI ESPARZA DO May 19, 2021 06:05
[2021-05-19] MEDS: inSUlin ASPART (NovoLOG) 1 UNIT/0.01 ML (CHARGE PER UNIT) SC SCH ×4 (06:12→20:45)
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
[2021-05-19 08:00] VITALS: BP 121/81
[2021-05-19] MEDS: DOCUSATE SODIUM 100 MG (COLACE) CAP PO SCH ×2 (08:19→20:54)
[2021-05-19] MEDS: APIXABAN 5 MG (ELIQUIS) TABLET PO SCH ×2 (08:19→20:55)
[2021-05-19] MEDS: SENNOSIDES 8.6 MG (SENOKOT) TAB PO SCH ×2 (08:19→20:54)
[2021-05-19] MEDS ORDERED: VIBE75TA PO (11:18)
[2021-05-19] MEDS ORDERED: AMIO200T65 PO (11:18)
[2021-05-19] MEDS ORDERED: APIX5TAB PO (11:18)
[2021-05-19] MEDS ORDERED: CHOL20003 PO (11:18)
[2021-05-19] MEDS ORDERED: TRAM50TA3 PO (11:18)
[2021-05-19] MEDS ORDERED: DULA3PEN INJ (11:18)
[2021-05-19] MEDS ORDERED: BETA1TAB15 PO (11:18)
[2021-05-19] MEDS ORDERED: DAPA10TA PO (11:18)
[2021-05-19] MEDS ORDERED: FENO145T26 PO (11:18)
[2021-05-19] MEDS ORDERED: DILT240C87 PO (11:18)
[2021-05-19] MEDS ORDERED: SULF1TAB38 PO (11:18)
[2021-05-19 12:00] VITALS: BP 133/67
[2021-05-19] MEDS: RT-ALBUTEROL/IPRATROPIUM 3 ML (DUONEB) VIAL INH SCH ×3 (14:20→22:18)
[2021-05-19 16:00] VITALS: BP 135/80
[2021-05-19] MEDS ORDERED: VANCOMYCIN 1,750 MG/NS 500 ML IVPB IV SCH ×2 (16:00)
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
[2021-05-19 19:17] VITALS: BP 130/76
[2021-05-19] MEDS ORDERED: NON-FORMULARY MEDICATION 1 EA EA (Dulaglutide (Trulicity) 3 MG) INJ SCH (21:15)
[2021-05-20] VITALS: BP 132/62
[2021-05-20] MEDS: RT-ALBUTEROL/IPRATROPIUM 3 ML (DUONEB) VIAL INH SCH ×3 (02:16→09:56)
[2021-05-20 03:52] VITALS: BP 149/69
[2021-05-20] MEDS: inSUlin ASPART (NovoLOG) 1 UNIT/0.01 ML (CHARGE PER UNIT) SC SCH ×2 (05:44→11:04)
[2021-05-20] MEDS: PIPERACILLIN SODIUM/TAZOBACTAM 4.5 GM in NS (IVPB) 100 ML IV SCH (05:44)
--- NOTE | 2021-05-20 06:06 | Progress Note - Hospitalist ---
Subjective HPI/CC On Admission Date Seen by Provider: May 20, 2021 Chief complaint: Right upper thigh cellulitis with abscess History of present illness: This is a 66-year-old white female clinic patient and [facility] who was sent to the ER by Dr. Morales due to failure of outpatient oral antibiotics for right upper lateral leg cellulitis status post incision and drainage of abscess. She reports that it started several days ago and it was opened and drained at the clinic and placed on antibiotics but she continues to have increased redness and pain and since she failed oral antibiotic she will need IV antibiotics and Dr. Ramsey consultation. Focused Exam Lactate Level 05/18/21 13:45: Lactic Acid Level 1.34 Objective Exam Vital Signs Vital Signs Date Time Temp Pulse Resp B/P (MAP) Pulse Ox O2 Delivery O2 Flow Rate FiO2 05/20/21 09:56 95 Room Air 05/20/21 08:00 2.00 05/20/21 08:00 36.0 75 18 123/70 (87) Capillary Refill : Less Than 3 Seconds Results/Procedures Lab Laboratory Tests 05/20/21 05:13 Patient resulted labs reviewed. Assessment/Plan Assessment and Plan Assess & Plan/Chief Complaint Assessment: Right upper lateral thigh cellulitis status post incision and drainage of abscess failed oral antibiotics Diabetes Atrial fibrillation Plan: IV antibiotics Dr. Ramsey consultation 05/19/2021: Supportive care Restart home meds IV antibiotics Diagnosis/Problems Diagnosis/Problems (1) Cellulitis Status: Acute DENIZ ESPARZALeah GARCIA May 20, 2021 06:06
[2021-05-20 06:11] LABS: BASOPHILS # (AUTO) 0.1 10^3/uL (0.0-0.1); BASOPHILS % (AUTO) 1 % (0-10); EOSINOPHILS # (AUTO) 0.4 10^3/uL (0.0-0.3); EOSINOPHILS % (AUTO) 4 % (0-10); HEMATOCRIT 40 % (35-52); HEMOGLOBIN 12.5 g/dL (11.5-16.0); LYMPHOCYTES # (AUTO) 2.9 10^3/uL (1.0-4.0); LYMPHOCYTES % (AUTO) 29 % (12-44); MEAN CORPUSCULAR HEMOGLOBIN 27 pg (25-34); MEAN CORPUSCULAR HGB CONC 31 g/dL (32-36); MEAN CORPUSCULAR VOLUME 85 fL (80-99); MEAN PLATELET VOLUME 9.9 fL (9.0-12.2); MONOCYTES # (AUTO) 0.6 10^3/uL (0.0-1.0); MONOCYTES % (AUTO) 6 % (0-12); NEUTROPHILS # (AUTO) 6.1 10^3/uL (1.8-7.8); NEUTROPHILS % (AUTO) 60 % (42-75); PLATELET COUNT 562 10^3/uL (130-400); WHITE BLOOD COUNT 10.1 10^3/uL (4.3-11.0)
[2021-05-20] MEDS ORDERED: LEVOTHYROXINE 100 MCG (LEVOTHROID) TAB PO SCH (06:30)
[2021-05-20 06:46] LABS: ALBUMIN 3.5 GM/DL (3.2-4.5); BILIRUBIN,TOTAL 0.3 MG/DL (0.1-1.0); CALCIUM 8.9 MG/DL (8.5-10.1); CREATININE SERUM 1.27 MG/DL (0.60-1.30); POTASSIUM 4.2 MMOL/L (3.6-5.0); TOTAL PROTEIN 7.3 GM/DL (6.4-8.2)
[2021-05-20] MEDS ORDERED: MULTIVIT W/MINERALS TAB (THERAGRAN M) PO SCH (07:00)
--- NOTE | 2021-05-20 07:23 | Progress Note - Surgery ---
CHRISTINA GARCIA A MED STUDENT 05/20/21 0723: Subjective Date Seen by a Provider: May 20, 2021 Time Seen by a Provider: 07:00 Subjective/Events-last exam Pt up in bed this morning, reports she is feeling well overall. Pt denies fever, chills, CP, palpitations, dysuria, N/V/D. Pt reports she has no pain related to her Right buttock wound. Pt reports she has some SOA and cough that has improved since admission. Pt reported she needed to use the restroom so this medical student helped get her to the bathroom with very little assistance. Pt reports she does have some frequency of urination that is not abnormal for her. Review of Systems General: No Chills, No Fatigue HEENT: No Head Aches, No Visual Changes Pulmonary: Dyspnea, Cough Cardiovascular: No: Chest Pain, Palpitations Gastrointestinal: No: Nausea, Vomiting, Abdominal Pain, Diarrhea, Constipation Genitourinary: No Dysuria; Frequency Neurological: No: Weakness, Numbness Focused Exam Lactate Level 05/18/21 13:45: Lactic Acid Level 1.34 Objective Exam Vital Signs Date Time Temp Pulse Resp B/P (MAP) Pulse Ox O2 Delivery O2 Flow Rate FiO2 05/20/21 06:49 99 Nasal Cannula 2.00 05/20/21 03:52 36.3 71 17 149/69 (95) 94 Nasal Cannula 2.00 05/20/21 02:16 99 Room Air 05/20/21 00:00 36.9 81 20 132/62 (85) 93 Nasal Cannula 2.00 05/19/21 22:18 98 Room Air 05/19/21 20:55 94 Room Air 05/19/21 19:17 36.1 70 18 130/76 (94) 95 Room Air 05/19/21 18:47 92 Room Air 05/19/21 16:00 35.9 67 18 135/80 (98) 93 Room Air 05/19/21 14:20 99 Room Air 05/19/21 12:00 36.5 64 18 133/67 (89) 94 Room Air 05/19/21 08:25 94 Room Air 05/19/21 08:00 36.4 61 16 121/81 (94) 94 Room Air I & O 05/20/21 07:00 Intake Total 3127.5 ml Output Total 1225 ml Balance 1902.5 ml Capillary Refill : Less Than 3 Seconds General Appearance: No Apparent Distress, WD/WN, Obese HEENT: PERRL/EOMI Neck: Full Range of Motion, Normal Inspection, Non Tender Respiratory: No Accessory Muscle Use, No Respiratory Distress Cardiovascular: Regular Rate, Rhythm Gastrointestinal: non tender, soft Extremity: Normal Capillary Refill, Normal Inspection Neurologic/Psychiatric: Alert, Oriented x3 Skin: Other (right buttock wound, erythema slightly improved from yesterday. Induration still present surrounding wound, stable from yesterday. Serosanginous fluid draining from packing) Lymphatic: No Adenopathy Results Lab Laboratory Tests 05/19/21 10:48: Glucometer 150H 05/19/21 15:31: Glucometer 157H 05/19/21 20:00: Glucometer 176H 05/20/21 05:12: Glucometer 134H 05/20/21 05:13: White Blood Count 10.1, Red Blood Count 4.72, Hemoglobin 12.5, Hematocrit 40, Mean Corpuscular Volume 85, Mean Corpuscular Hemoglobin 27, Mean Corpuscular Hemoglobin Concent 31L, Red Cell Distribution Width 14.3, Platelet Count 562H, Mean Platelet Volume 9.9, Immature Granulocyte % (Auto) 1, Neutrophils (%) (Auto) 60, Lymphocytes (%) (Auto) 29, Monocytes (%) (Auto) 6, Eosinophils (%) (Auto) 4, Basophils (%) (Auto) 1, Neutrophils # (Auto) 6.1, Lymphocytes # (Auto) 2.9, Monocytes # (Auto) 0.6, Eosinophils # (Auto) 0.4H, Basophils # (Auto) 0.1, Immature Granulocyte # (Auto) 0.1, Sodium Level 139, Potassium Level 4.2, Chloride Level 107, Carbon Dioxide Level 18L, Anion Gap 14, Blood Urea Nitrogen 16, Creatinine 1.27, Estimat Glomerular Filtration Rate 46, BUN/Creatinine Ratio 13, Glucose Level 135H, Calcium Level 8.9, Corrected Calcium 9.3, Total Bilirubin 0.3, Aspartate Amino Transf (AST/SGOT) 13, Alanine Aminotransferase (ALT/SGPT) 11, Alkaline Phosphatase 63, Total Protein 7.3, Albumin 3.5 Microbiology 05/18/21 Urine Culture - Preliminary, Resulted YEAST 05/18/21 Blood Culture - Preliminary, Resulted No growth 05/18/21 Gram Stain - Final, Resulted 05/18/21 Wound Culture - Preliminary, Resulted Staphylococcus aureus Assessment/Plan Assessment/Plan Assessment/Plan Cellulitis of Right buttock with abscess s/p I&D outpatient via Dr. Chandrika Morales at [facility] Leukocytosis-improved Thrombocytosis-improved Recent Influenza infection Asymptomatic bacteruria Diabetes Afib Obesity Plan Vancomycin and Zosyn for broad spectrum coverage, wound culture showed Staph aureus, will await sensitivities CT showed cellulitis more likely than abscess, continue to irrigate and pack wound with iodoform needing daily wound care Leukocytosis likely unrelated to cellulitis/abscess, but improving UA showed elevated WBCs and LE, Urine culture showed yeast, consider starting diflucan Regular diet Glucose control SCDs for DVT prophylaxis MAT protocol JOEL RAMSEY DO 05/20/21 0843: Subjective Subjective/Events-last exam Patient feeling good. Continues to have decreased erythema and discomfort. Denies n/v fever sweats chills shortness of breath or chest pain. Objective Exam General Appearance: No Apparent Distress, WD/WN, Obese HEENT: PERRL/EOMI, Normal ENT Inspection Neck: Normal Inspection, Non Tender Respiratory: Chest Non Tender, No Accessory Muscle Use, No Respiratory Distress Cardiovascular: Regular Rate, Rhythm, No JVD Gastrointestinal: non tender, soft Extremity: Normal Capillary Refill, Normal Inspection Neurologic/Psychiatric: Alert, Oriented x3 Skin: Normal Color, Warm/Dry, Other (right buttock wound, erythema slightly improved from yesterday. Induration still present surrounding wound and less, Serosanginous fluid draining from packing) Lymphatic: No Adenopathy Assessment/Plan Assessment/Plan Assessment/Plan Cellulitis of Right buttock with abscess s/p I&D outpatient via Dr. Chandrika Morales at [facility] Leukocytosis-improved Thrombocytosis-improved Recent Influenza infection Asymptomatic bacteruria Diabetes Afib Obesity Plan Vancomycin and Zosyn for broad spectrum coverage, wound culture showed Staph aureus, will await sensitivities CT showed cellulitis more likely than abscess, continue to irrigate and pack wound with iodoform needing daily wound care, slowly improving Leukocytosis likely unrelated to cellulitis/abscess, but improving Regular diet Glucose control SCDs for DVT prophylaxis MAT protocol Supervisory-Addendum Brief Verification & Attestation Participated in pt care: history, MDM, physical Personally performed: exam, history, MDM, supervision of care Care discussed with: Medical Student Procedures: n/a Results interpretation: Verified all documentation Verification and Attestation of Medical Student E/M Service A medical student performed and documented this service in my presence. I reviewed and verified all information documented by the medical student and made modifications to such information, when appropriate. I personally performed the physical exam and medical decision making. Joel Ramsey, May 20, 2021,08:58 CHRISTINA GARCIA MED STUDENT May 20, 2021 07:23 JOEL RAMSEY DO May 20, 2021 08:43
[2021-05-20 08:00] VITALS: BP 123/70
[2021-05-20] MEDS: APIXABAN 5 MG (ELIQUIS) TABLET PO SCH (08:08)
[2021-05-20] MEDS: DOCUSATE SODIUM 100 MG (COLACE) CAP PO SCH (08:08)
[2021-05-20] MEDS: SENNOSIDES 8.6 MG (SENOKOT) TAB PO SCH (08:08)
[2021-05-20] MEDS ORDERED: FENOFIBRATE, MICRO 67 MG (LOFIBRA) CAPSULE PO SCH (09:00)
[2021-05-20] MEDS ORDERED: VITAMIN D3 25 MCG (1,000 UNITS) TABLET PO SCH (09:00)
[2021-05-20] MEDS ORDERED: APIXABAN 5 MG (ELIQUIS) TABLET PO SCH (09:00)
[2021-05-20] MEDS ORDERED: NON-FORMULARY MEDICATION 1 EA EA (Dapagliflozin Propanediol (Farxiga) 10 MG) PO SCH (09:00)
[2021-05-20] MEDS ORDERED: AMIODARONE 200 MG (CORDARONE) TAB PO SCH (09:00)
[2021-05-20] MEDS ORDERED: AMOX1TAB12 PO (11:03)
--- NOTE | 2021-05-20 11:04 | Discharge Summary ---
Discharge Summary Hospital Course Was the Problem List Reviewed?: Yes Problems/Dx: (1) Cellulitis Status: Acute Hospital Course Date of Admission: May 18, 2021 at 15:38 Admission Diagnosis : Family Physician/Provider: No,Local Physician Date of Discharge: 05/20/21 Discharge Diagnosis: cellulitis, DM, COPD, Cough Hospital Course: Pt had an uneventful 3 day hospital course after she was admitted after failed oral antibiotic therapy for abscess of cellulitis of the right upper lateral thigh. Dr. Ramsey consulted, no need for any deep incision and drainage. CT scan didn't show any communication or fistula. She was placed on IV antibiotics broad spectrum. Ultimately improved, had no other new issues. She was discharged on Augmentin BID. Labs and Pending Lab Test: Laboratory Tests 05/19/21 15:31: Glucometer 157H 05/19/21 20:00: Glucometer 176H 05/20/21 05:12: Glucometer 134H 05/20/21 05:13: White Blood Count 10.1, Red Blood Count 4.72, Hemoglobin 12.5, Hematocrit 40, Mean Corpuscular Volume 85, Mean Corpuscular Hemoglobin 27, Mean Corpuscular Hemoglobin Concent 31L, Red Cell Distribution Width 14.3, Platelet Count 562H, Mean Platelet Volume 9.9, Immature Granulocyte % (Auto) 1, Neutrophils (%) (Auto) 60, Lymphocytes (%) (Auto) 29, Monocytes (%) (Auto) 6, Eosinophils (%) (Auto) 4, Basophils (%) (Auto) 1, Neutrophils # (Auto) 6.1, Lymphocytes # (Auto) 2.9, Monocytes # (Auto) 0.6, Eosinophils # (Auto) 0.4H, Basophils # (Auto) 0.1, Immature Granulocyte # (Auto) 0.1, Sodium Level 139, Potassium Level 4.2, Chloride Level 107, Carbon Dioxide Level 18L, Anion Gap 14, Blood Urea Nitrogen 16, Creatinine 1.27, Estimat Glomerular Filtration Rate 46, BUN/Creatinine Ratio 13, Glucose Level 135H, Calcium Level 8.9, Corrected Calcium 9.3, Total Bilirubin 0.3, Aspartate Amino Transf (AST/SGOT) 13, Alanine Aminotransferase (ALT/SGPT) 11, Alkaline Phosphatase 63, Total Protein 7.3, Albumin 3.5 Microbiology 05/18/21 Urine Culture - Preliminary, Resulted YEAST 05/18/21 Blood Culture - Preliminary, Resulted No growth 05/18/21 Gram Stain - Final, Resulted 05/18/21 Wound Culture - Preliminary, Resulted Staphylococcus aureus Home Meds Active Amox Tr-K Clv 875-125 mg Tab (Amoxicillin/Potassium Clav) 1 Each Tablet 1 Each PO BID Reported Preservision Areds Tablet (Vit A/Vit C/Vit E/Zinc/Copper) 1 Each Tablet 1 Each PO DAILY Vitamin D3 (Cholecalciferol (Vitamin D3)) 50 Mcg Capsule 50 Mcg PO DAILY Eliquis (Apixaban) 5 Mg Tablet 5 Mg PO BID Trulicity (Dulaglutide) 3 Mg/0.5 Ml Pen.injctr 3 Mg INJ THUR Fenofibrate (Fenofibrate Nanocrystallized) 145 Mg Tablet 72.5 Mg PO BID TAKES (145MG) TABS TWICE DAILY Gemtesa (Vibegron) 75 Mg Tablet 75 Mg PO HS Farxiga (Dapagliflozin Propanediol) 10 Mg Tablet 10 Mg PO DAILY Diltiazem ER (Diltiazem HCl) 240 Mg Capsule.er 240 Mg PO 1600 Amiodarone HCl 200 Mg Tablet 200 Mg PO BID Bactrim Ds Tablet (Sulfamethoxazole/Trimethoprim) 1 Each Tablet 1 Each PO BID FILLED 05-16-2021 #20/10 DAY SUPPLY Tramadol HCl 50 Mg Tablet 50 Mg PO Q6H PRN Levothyroxine Sodium 200 Mcg Tablet 200 Mcg PO DAILY Tresiba Flextouch U-100 (Insulin Degludec) 100 Unit/1 Ml Insuln.pen 38 Unit SC HS Metoprolol Succinate 25 Mg Tab.er.24h 25 Mg PO DAILY Imipramine HCl 50 Mg Tablet 50 Mg PO HS Assessment/Pt Instructions PCP 1 week Discharge Planning: <30 minutes discharge planning Discharge Instructions Discharge Diet: ADA Diet Discharge Physical Examination Vital Signs Vital Signs Date Time Temp Pulse Resp B/P (MAP) Pulse Ox O2 Delivery O2 Flow Rate FiO2 05/20/21 09:56 95 Room Air 05/20/21 08:00 2.00 05/20/21 08:00 36.0 75 18 123/70 (87) General Appearance: No Apparent Distress, WD/WN, Chronically ill Allergies: Coded Allergies: naproxen (Verified Adverse Reaction, Unknown, DECREASES KIDNEY FUNCTION, 06/04/20) Discharge Summary Date of Admission May 18, 2021 at 15:38 Date of Discharge Discharge Date: May 20, 2021 Admission Diagnosis Assessment: Right upper lateral thigh cellulitis status post incision and drainage of abscess failed oral antibiotics Diabetes Atrial fibrillation Plan: IV antibiotics Dr. Ramsey consultation Discharge Diagnosis Assessment: Right upper lateral thigh cellulitis status post incision and drainage of abscess failed oral antibiotics Diabetes Atrial fibrillation Plan: IV antibiotics Dr. Ramsey consultation 05/19/2021: Supportive care Restart home meds IV antibiotics (1) Cellulitis Status: Acute DIMITRI ESPARZA DO May 20, 2021 11:04
[2021-05-20 12:00] VITALS: BP_SYST 117; BP_SYST 123; BP_DIAS 70; BP_DIAS 79
[2021-05-20] MEDS ORDERED: TROUGH ORDER-PHARMACY XX NR (15:00)
[2021-05-20] MEDS ORDERED: VIBEGRON 75 MG PO SCH (21:00)
[2021-05-20] MEDS ORDERED: IMIPRAMINE 25 MG (TOFRANIL) TAB PO SCH (21:00)
== END 2021-05-20 12:10 | disposition home or self-care (01) | DRG 603 ==
LOC: EDUNIT# 13:24 → ER 13:25 → 4TH 15:38
PROVIDERS: ADMIT Internal Medicine; ATTEND Internal Medicine
DX: L03.115 Cellulitis of right lower limb (principal); T21.21XA Burn of second degree of chest wall, initial encounter; I48.91 Unspecified atrial fibrillation; E11.9 Type 2 diabetes mellitus without complications; E66.9 Obesity, unspecified; T31.0 Burns involving less than 10% of body surface; E78.00 Pure hypercholesterolemia, unspecified; I10 Essential (primary) hypertension; D75.839 Thrombocytosis, unspecified; E03.9 Hypothyroidism, unspecified; H35.30 Unspecified macular degeneration; R20.8 Other disturbances of skin sensation; S12.9XXS Fracture of neck, unspecified, sequela; B95.61 Methicillin susceptible Staphylococcus aureus infection as the cause of diseases classified elsewhere; Z68.39 Body mass index [BMI] 39.0-39.9, adult; Z79.01 Long term (current) use of anticoagulants; Z79.84 Long term (current) use of oral hypoglycemic drugs; Z79.4 Long term (current) use of insulin; Z88.6 Allergy status to analgesic agent; X19.XXXS Contact with other heat and hot substances, sequela
CPT/HCPCS: 36415; 73701; 80053; 81000; 82947; 83605; 85025; 85610; 85730; 87040; 87070; 87077; 87088; 87186; 87205; 94640; 94760; 96361; 96365; 96375; G0378

== ENCOUNTER → 2021-05-26 | Outpatient (CLI) | payer MEDICARE, MEDICAID ==
[~2021-05-26] MED LIST changes: +AMOX1TAB12 PO; +BETA1TAB15 PO; +CHOL20003 PO; +DAPA10TA PO; +DILT240C87 PO; +DULA3PEN INJ; +SULF1TAB38 PO; +TRAM50TA3 PO; +VIBE75TA PO
== END ==
LOC: WOUNDCARE 13:58
PROVIDERS: ATTEND Family Medicine
DX: L02.415 Cutaneous abscess of right lower limb (principal); E11.622 Type 2 diabetes mellitus with other skin ulcer; L03.115 Cellulitis of right lower limb; B95.61 Methicillin susceptible Staphylococcus aureus infection as the cause of diseases classified elsewhere
CPT/HCPCS: 11042; G0463

== ENCOUNTER → 2021-06-03 | Outpatient (CLI) | payer MEDICARE, MEDICAID | LOC: WOUNDCARE 12:46 | PROVIDERS: ATTEND Orthopaedic Surgery Hand Surgery | DX: L02.415 Cutaneous abscess of right lower limb (principal); B95.61 Methicillin susceptible Staphylococcus aureus infection as the cause of diseases classified elsewhere; E11.622 Type 2 diabetes mellitus with other skin ulcer; E11.52 Type 2 diabetes mellitus with diabetic peripheral angiopathy with gangrene; L03.115 Cellulitis of right lower limb; L97.112 Non-pressure chronic ulcer of right thigh with fat layer exposed | CPT/HCPCS: 11042; A6197; G0463 ==

== ENCOUNTER → 2021-06-09 | Outpatient (CLI) | payer MEDICARE, MEDICAID | LOC: WOUNDCARE 13:16 | PROVIDERS: ATTEND Family Medicine | DX: L02.415 Cutaneous abscess of right lower limb (principal); B95.61 Methicillin susceptible Staphylococcus aureus infection as the cause of diseases classified elsewhere; E11.622 Type 2 diabetes mellitus with other skin ulcer; L03.115 Cellulitis of right lower limb; L97.112 Non-pressure chronic ulcer of right thigh with fat layer exposed; E11.52 Type 2 diabetes mellitus with diabetic peripheral angiopathy with gangrene | CPT/HCPCS: 11042; G0463 ==

== ENCOUNTER → 2021-06-16 | Outpatient (CLI) | payer MEDICARE, MEDICAID | LOC: WOUNDCARE 13:37 | PROVIDERS: ATTEND Family Medicine | DX: L02.415 Cutaneous abscess of right lower limb (principal); L97.112 Non-pressure chronic ulcer of right thigh with fat layer exposed; B95.61 Methicillin susceptible Staphylococcus aureus infection as the cause of diseases classified elsewhere; E11.622 Type 2 diabetes mellitus with other skin ulcer; E11.52 Type 2 diabetes mellitus with diabetic peripheral angiopathy with gangrene; L03.115 Cellulitis of right lower limb | CPT/HCPCS: 11042; G0463 ==

== ENCOUNTER → 2021-06-23 | Outpatient (CLI) | payer MEDICARE, MEDICAID | LOC: WOUNDCARE 13:16 | PROVIDERS: ATTEND Family Medicine | DX: L02.415 Cutaneous abscess of right lower limb (principal); B95.61 Methicillin susceptible Staphylococcus aureus infection as the cause of diseases classified elsewhere; E11.622 Type 2 diabetes mellitus with other skin ulcer; L03.115 Cellulitis of right lower limb; L97.112 Non-pressure chronic ulcer of right thigh with fat layer exposed; E11.52 Type 2 diabetes mellitus with diabetic peripheral angiopathy with gangrene | CPT/HCPCS: 11042; G0463 ==

== ENCOUNTER → 2021-06-30 | Outpatient (CLI) | payer MEDICARE, MEDICAID | LOC: WOUNDCARE 13:08 | PROVIDERS: ATTEND Family Medicine | DX: L02.415 Cutaneous abscess of right lower limb (principal); E11.622 Type 2 diabetes mellitus with other skin ulcer; L97.112 Non-pressure chronic ulcer of right thigh with fat layer exposed; E11.52 Type 2 diabetes mellitus with diabetic peripheral angiopathy with gangrene | CPT/HCPCS: 97597; G0463 ==

== ENCOUNTER → 2021-07-07 | Outpatient (CLI) | payer MEDICARE, MEDICAID | LOC: WOUNDCARE 13:16 | PROVIDERS: ATTEND Family Medicine | DX: L02.415 Cutaneous abscess of right lower limb (principal); L97.112 Non-pressure chronic ulcer of right thigh with fat layer exposed; E11.622 Type 2 diabetes mellitus with other skin ulcer; E11.52 Type 2 diabetes mellitus with diabetic peripheral angiopathy with gangrene; I96 Gangrene, not elsewhere classified | CPT/HCPCS: 11042; G0463 ==

== ENCOUNTER → 2021-07-14 | Outpatient (CLI) | payer MEDICARE, MEDICAID | LOC: WOUNDCARE 13:27 | PROVIDERS: ATTEND Family Medicine | DX: L02.415 Cutaneous abscess of right lower limb (principal); E11.622 Type 2 diabetes mellitus with other skin ulcer; L97.112 Non-pressure chronic ulcer of right thigh with fat layer exposed | CPT/HCPCS: 99212 ==

== ENCOUNTER → 2022-05-18 | Outpatient (CLI) | payer MEDICARE, MEDICAID ==
[~2022-05-18] MED LIST changes: +CYAN-41 PO; +DULA4.5P SQ; +INSU100I14 SQ; +VIT1CAPS44 PO
== END ==
LOC: RAD 09:33
DX: Z53.9 Procedure and treatment not carried out, unspecified reason (principal)

== ENCOUNTER 2022-05-24 10:30 | Observation (INO) | payer MEDICARE, MEDICAID ==
[~2022-05-24] VITALS: Ht 172.7 cm; Wt 118.4 kg
[~2022-05-24 10:30] MED LIST changes: -CYAN-41 PO; -DULA4.5P SQ; -INSU100I14 SQ; -VIT1CAPS44 PO
[2022-05-24] MEDS ORDERED: DEXTROSE 50% 50 ML (IMS) SYR ONE ×2 (10:43→12:42)
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
[2022-05-24 11:04] LABS: BASOPHILS # (AUTO) 0.1 10^3/uL (0.0-0.1); BASOPHILS % (AUTO) 1 % (0-10); EOSINOPHILS # (AUTO) 0.4 10^3/uL (0.0-0.3); EOSINOPHILS % (AUTO) 3 % (0-10); HEMATOCRIT 41 % (35-52); HEMOGLOBIN 13.1 g/dL (11.5-16.0); LYMPHOCYTES # (AUTO) 3.3 10^3/uL (1.0-4.0); LYMPHOCYTES % (AUTO) 30 % (12-44); MEAN CORPUSCULAR HEMOGLOBIN 27 pg (25-34); MEAN CORPUSCULAR HGB CONC 32 g/dL (32-36); MEAN CORPUSCULAR VOLUME 84 fL (80-99); MONOCYTES # (AUTO) 0.5 10^3/uL (0.0-1.0); MONOCYTES % (AUTO) 5 % (0-12); NEUTROPHILS # (AUTO) 6.7 10^3/uL (1.8-7.8); NEUTROPHILS % (AUTO) 61 % (42-75); PLATELET COUNT 451 10^3/uL (130-400); WHITE BLOOD COUNT 11.1 10^3/uL (4.3-11.0)
[2022-05-24 11:05] LABS: POTASSIUM 3.9 MMOL/L (3.6-5.0)
[2022-05-24 11:06] LABS: CALCIUM 9.4 MG/DL (8.5-10.1)
[2022-05-24 11:11] LABS: CREATININE SERUM 1.03 MG/DL (0.60-1.30)
[2022-05-24] MEDS ORDERED: D5W 1000 ML IV SOLUTION 0 ML ONE (12:38)
[2022-05-24] MEDS ORDERED: D5 NS 1000 ML IV SOLUTION 1,000 ML IV ONE (12:42)
[2022-05-24] MEDS ORDERED: DEXTROSE 50% 50 ML (IMS) SYR IV ONE ×2 (12:45→13:00)
[2022-05-24] MEDS: D5 NS 1000 ML IV SOLUTION 1,000 ML IV SCH ×3 (12:46→22:33)
--- NOTE | 2022-05-24 14:00 | History & Physical ---
HPI History of Present Illness: 67 yo female came into ER due to feeling dizzy and cruddy since the morning a little before 10 am. Denies passing out. Denies fever, chest pain, shortness of breath, nausea, vomiting, diarrhea, constipation. States she has been eating and drinking fine. Says she hasn't had trouble with low blood sugar for a long time. She did have an ambulance come out to get her sugar up once years ago. Usually checks blood sugar twice per day, yesterday afternoon was 275 which is the highest she has had in a couple of weeks, lowest has been 125, didn't check this morning. Source: patient Date seen by provider: May 24, 2022 Time Seen by Provider: 13:58 Attending Physician Chandrika Morales MD PCP Admitting Physician: Cassie Fragoso MD Attending Physician: Cassie Fragoso MD Consult Date of Admission May 24, 2022 at 13:19 Home Medications Home Medications Reviewed patient Home Medication Reconciliation performed by pharmacy medication reconciliations lube technician and/or nursing. Patients Allergies have been reviewed. Allergies Coded Allergies: naproxen (Verified Adverse Reaction, Unknown, DECREASES KIDNEY FUNCTION, 06/04/20) POM-Pqigva-Vmrsst Hx Patient Social History 2nd Hand Smoke Exposure: No Recent Hopitalizations: No Alcohol Use?: Yes Immunizations Up To Date Tetanus Booster (TDap): Unknown First/Initial COVID19 Vaccinat: unknown Second COVID19 Vaccination Paramjit: MAY 2020 Third COVID19 Vaccination Date: 05/06/20 COVID19 Vaccine Cnc Specialist: Moderna Past Medical History PMHx: P. Atrial Fibrillation HTN DMII HLD SurgHx: Cervical vetebrae surgery Hysterectomy Cholecystectomy Appendectomy Family Medical History Significant Family History: Cancer (mother, unknown type), COPD (father with emphysema) Review of Systems ([facility]) Constitutional: see HPI Genitourinary: No dysuria Musculoskeletal: joint pain (chronic, no changes), muscle pain (chronic, no changes) Skin: No rash Psychiatric/Neurological: Denies Anxiety, Denies Depressed Reviewed Test Results Reviewed Test Results Lab Laboratory Tests Test 05/24/22 10:42 05/24/22 10:43 05/24/22 11:41 05/24/22 12:08 Range/Units Glucometer 48 *L 96 42 *L 70-110 MG/DL White Blood Count 11.1 H 4.3-11.0 10^3/uL Red Blood Count 4.93 3.80-5.11 10^6/uL Hemoglobin 13.1 11.5-16.0 g/dL Hematocrit 41 35-52 % Mean Corpuscular Volume 84 80-99 fL Mean Corpuscular Hemoglobin 27 25-34 pg Mean Corpuscular Hemoglobin Concent 32 32-36 g/dL Red Cell Distribution Width 14.1 10.0-14.5 % Platelet Count 451 H 130-400 10^3/uL Mean Platelet Volume 10.0 9.0-12.2 fL Immature Granulocyte % (Auto) 0 % Neutrophils (%) (Auto) 61 42-75 % Lymphocytes (%) (Auto) 30 12-44 % Monocytes (%) (Auto) 5 0-12 % Eosinophils (%) (Auto) 3 0-10 % Basophils (%) (Auto) 1 0-10 % Neutrophils # (Auto) 6.7 1.8-7.8 10^3/uL Lymphocytes # (Auto) 3.3 1.0-4.0 10^3/uL Monocytes # (Auto) 0.5 0.0-1.0 10^3/uL Eosinophils # (Auto) 0.4 H 0.0-0.3 10^3/uL Basophils # (Auto) 0.1 0.0-0.1 10^3/uL Immature Granulocyte # (Auto) 0.0 0.0-0.1 10^3/uL Sodium Level 138 135-145 MMOL/L Potassium Level 3.9 3.6-5.0 MMOL/L Chloride Level 107 98-107 MMOL/L Carbon Dioxide Level 22 21-32 MMOL/L Anion Gap 9 5-14 MMOL/L Blood Urea Nitrogen 27 H 7-18 MG/DL Creatinine 1.03 0.60-1.30 MG/DL Estimat Glomerular Filtration Rate 59 BUN/Creatinine Ratio 26 Glucose Level 47 *L 70-105 MG/DL Calcium Level 9.4 8.5-10.1 MG/DL Test 05/24/22 12:31 05/24/22 13:12 05/24/22 14:15 Range/Units Glucometer 48 *L 155 H 91 70-110 MG/DL Physical Exam-([facility]) Physical Exam Vital Signs VS - Last 72 Hours, by Label 05/24/22 05/24/22 10:37 13:28 Temp 34.5 Pulse 54 46 Resp 18 14 B/P (MAP) 112/42 (65) 121/56 Pulse Ox 96 100 O2 Delivery Nasal Cannula Room Air O2 Flow Rate 3.00 Capillary Refill : Less Than 3 Seconds General Appearance: no apparent distress Respiratory: lungs clear, normal breath sounds Cardiovascular: no murmur, irregularly irregular Gastrointestinal: normal bowel sounds, non tender, soft Neurologic/Psychiatric: alert, normal mood/affect Skin: warm/dry Assessment/Plan Assessment/Plan Admission Status: Observation (1) Hypoglycemia associated with diabetes Status: Acute Assessment & Plan: Uncertain etiology, reports no illness and is eating/drinking well. Does note Trulicity has been new in last few months. Holding antihyperglycemics, started on D5, check glucose hourly, when above 100 for 4 hours, will taper IVF. (2) Hypothyroidism Status: Chronic Assessment & Plan: Resume home levothyroxine (3) Diabetes mellitus, type 2 Status: Chronic Assessment & Plan: Hold home antihyperglycemics due to hypoglycemia. Diabetic diet. 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 (7) Morbid obesity Status: Chronic (8) DVT prophylaxis Status: Acute Assessment & Plan: Resume home anticoagulation. CASSIE FRAGOSO MD May 24, 2022 14:00
[2022-05-24 14:28] VITALS: BP 139/77
[2022-05-24 15:00] VITALS: BP 139/77
[2022-05-24] MEDS ORDERED: PATIENT MAY USE OWN MEDS, ALL MC SCH (15:00)
[2022-05-24] MEDS ORDERED: RT-ALBUTEROL SULF 2.5 MG/3 ML PRE-MIX VIAL INH PRN (15:15)
[2022-05-24 18:44] LABS: BILIRUBIN,URINE NEGATIVE (NEGATIVE); CLARITY,URINE CLOUDY; COLOR,URINE YELLOW; GLUCOSE, URINE (UA) 3+ (NEGATIVE); KETONES,URINE NEGATIVE (NEGATIVE); LEUKOCYTE ESTERASE ,URINE 1+ (NEGATIVE); NITRITE,URINE NEGATIVE (NEGATIVE); PH,URINE 5.5 (5-9); PROTEIN,URINE NEGATIVE (NEGATIVE)
[2022-05-24 18:55] LABS: BACTERIA,URINE LARGE /HPF
[2022-05-24 19:15] LABS: YEAST,URINE LARGE /HPF
[2022-05-24] MEDS: APIXABAN 5 MG (ELIQUIS) TABLET PO SCH (19:50)
[2022-05-24 20:14] VITALS: BP 138/78
[2022-05-24] MEDS ORDERED: IMIPRAMINE 25 MG (TOFRANIL) TAB PO SCH (21:00)
[2022-05-24] MEDS: inSUlin ASPART (NovoLOG) 1 UNIT/0.01 ML (CHARGE PER UNIT) SC SCH (21:52)
[2022-05-24 23:07] VITALS: BP 128/71
[2022-05-25 03:49] VITALS: BP 119/69
[2022-05-25] MEDS: inSUlin ASPART (NovoLOG) 1 UNIT/0.01 ML (CHARGE PER UNIT) SC SCH ×3 (05:48→15:52)
[2022-05-25] MEDS ORDERED: LEVOTHYROXINE 100 MCG (LEVOTHROID) TAB PO SCH (06:30)
[2022-05-25 07:45] VITALS: BP 128/72
[2022-05-25] MEDS: APIXABAN 5 MG (ELIQUIS) TABLET PO SCH (08:46)
[2022-05-25 11:17] VITALS: BP 122/74
[2022-05-25] MEDS ORDERED: DULA4.5P SQ (11:53)
[2022-05-25] MEDS ORDERED: INSU100I14 SQ (11:54)
[2022-05-25] MEDS ORDERED: VIT1CAPS44 PO (12:11)
[2022-05-25] MEDS ORDERED: CYAN-41 PO (12:11)
--- NOTE | 2022-05-25 13:03 | Discharge Summary ---
Discharge Summary Hospital Course Problems/Diagnosis: (1) Hypoglycemia associated with diabetes Status: Acute Assessment & Plan: Uncertain etiology, reports no illness and is eating/drinking well. Does note Trulicity has been new in last few months and she recently increased to max dose. Given D5 IV for several hours, able to wean off and glucose normal to high, tolerating diet. Held Trulicity and mealtime insulin on d/c and instructed to check blood sugar 4x daily and call if glucose above 200 or below 80. (2) Hypothyroidism Status: Chronic Assessment & Plan: Resumed home levothyroxine (3) Diabetes mellitus, type 2 Status: Chronic Assessment & Plan: Held home antihyperglycemics due to hypoglycemia inpatient. Diabetic diet. 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 (7) Morbid obesity Status: Chronic Hospital Course Date of Admission: May 24, 2022 at 13:19 Admission Diagnosis : Family Physician/Provider: Chandrika Morales MD Date of Discharge: 05/25/22 Discharge Diagnosis: See problem list Hospital Course: See problem list Labs and Pending Lab Test: Laboratory Tests 05/24/22 13:12: Glucometer 155H 05/24/22 14:15: Glucometer 91 05/24/22 15:15: Glucometer 97 05/24/22 16:05: Glucometer 133H 05/24/22 17:08: Glucometer 132H 05/24/22 18:10: Glucometer 167H 05/24/22 18:42: Urine Color YELLOW, Urine Clarity CLOUDY, Urine pH 5.5, Urine Specific [place] 1.020, Urine Protein NEGATIVE, Urine Glucose (UA) 3+H, Urine Ketones NEGATIVE, Urine Nitrite NEGATIVE, Urine Bilirubin NEGATIVE, Urine Urobilinogen 0.2, Urine Leukocyte Esterase 1+H, Urine RBC (Auto) 1+H, Urine RBC 2-5H, Urine WBC 5-10H, Urine Squamous Epithelial Cells 10-25H, Urine Crystals NONE, Urine Bacteria LARGEH, Urine Casts NONE, Urine Mucus NEGATIVE, Urine Yeast LARGEH, Urine Culture Indicated YES 05/24/22 19:01: Glucometer 208H 05/24/22 21:20: Glucometer 172H 05/24/22 23:09: Glucometer 143H 05/25/22 02:06: Glucometer 147H 05/25/22 05:18: Glucometer 154H 05/25/22 11:16: Glucometer 177H Microbiology 05/24/22 Urine Culture - Preliminary, Resulted Gram Negative Bacillus 1 Mixed Bacterial Lety Home Meds Active Reported Preservision Areds 2 Softgel (Vit C/E/Zn/Coppr/Lutein/Zeaxan) 250MG-90MG Capsule 1 Each PO DAILY Vitamin B-12 (Cyanocobalamin (Vitamin B-12)) 1,000 Mcg Tablet 1,000 Mcg PO DAILY Eliquis (Apixaban) 5 Mg Tablet 5 Mg PO BID Fenofibrate (Fenofibrate Nanocrystallized) 145 Mg Tablet 145 Mg PO DAILY Gemtesa (Vibegron) 75 Mg Tablet 75 Mg PO DAILY Farxiga (Dapagliflozin Propanediol) 10 Mg Tablet 10 Mg PO DAILY Diltiazem ER (Diltiazem HCl) 240 Mg Capsule.er 240 Mg PO DAILY Tramadol HCl 50 Mg Tablet 50 Mg PO Q6H PRN Levothyroxine Sodium 200 Mcg Tablet 200 Mcg PO DAILY Tresiba Flextouch U-100 (Insulin Degludec) 100 Unit/1 Ml Insuln.pen 38 Unit SC HS Metoprolol Succinate 25 Mg Tab.er.24h 25 Mg PO DAILY Imipramine HCl 50 Mg Tablet 50 Mg PO HS Assessment/Pt DC Instructions Follow up with Dr. Morales within a week of d/c. Check blood sugar fasting and before each meal, call if glucose above 200 or below 80. Hold Trulicity and mealtime insulin. Discharge Diet: ADA Diet Activity as Tolerated: Yes Discharge Physical Examination Allergies: Coded Allergies: naproxen (Verified Adverse Reaction, Unknown, DECREASES KIDNEY FUNCTION, 06/04/20) General Appearance: No Apparent Distress Respiratory: Lungs Clear Cardiovascular: Regular Rate, Rhythm Skin: Normal Color, Warm/Dry Neurologic/Psychiatric: Alert, Normal Mood/Affect CASSIE BRYSON MD May 25, 2022 13:03
[2022-05-25 15:37] VITALS: BP 137/69
[2022-05-25 17:23] VITALS: BP 137/69
== END 2022-05-25 17:23 | disposition home or self-care (01) ==
LOC: EDUNIT# 10:30 → ER 10:33 → 4TH 13:19
PROVIDERS: ADMIT Family Medicine; ATTEND Family Medicine
DX: E11.649 Type 2 diabetes mellitus with hypoglycemia without coma (principal); E03.9 Hypothyroidism, unspecified; I10 Essential (primary) hypertension; E78.5 Hyperlipidemia, unspecified; I48.0 Paroxysmal atrial fibrillation; E66.01 Morbid (severe) obesity due to excess calories; Z68.39 Body mass index [BMI] 39.0-39.9, adult; Z79.4 Long term (current) use of insulin; Z79.890 Hormone replacement therapy; Z79.899 Other long term (current) drug therapy
CPT/HCPCS: 36415; 80048; 81000; 82947; 85025; 87088; 93005; G0378

== ENCOUNTER → 2022-05-26 | Outpatient (CLI) | payer MEDICARE, MEDICAID ==
[~2022-05-26] MED LIST changes: +CYAN-41 PO; +DULA4.5P SQ; +INSU100I14 SQ; +VIT1CAPS44 PO
--- NOTE | 2022-05-26 16:16 | Diagnostic Imaging Report ---
Indication: Routine screening. No prior mammograms are available for comparison. 2-D and 3-D bilateral screening mammography was performed with CAD. Scattered fibroglandular densities are identified bilaterally. Cardiac loop recorder overlies the posterior aspect of the left breast. No dominant mass or malignant-appearing microcalcifications are seen. Axillae are unremarkable. IMPRESSION: BI-RADS Category 1 No mammographic features suspicious for malignancy are identified. ACR BI-RADS Category 1: Negative. Result letter will be mailed to the patient. Note: At least 10% of breast cancer is not imaged by mammography. Dictated by: Dictated on workstation # [id number]
== END ==
LOC: RAD 09:46
PROVIDERS: ATTEND Pediatrics
DX: Z12.31 Encounter for screening mammogram for malignant neoplasm of breast (principal)
CPT/HCPCS: 77063; 77067

== ENCOUNTER → 2022-05-31 | Outpatient (CLI) | payer MEDICARE, MEDICAID ==
[~2022-05-31] VITALS: Ht 172 cm; Wt 118.0 kg
[~2022-05-31] MED LIST changes: +CATHETER FLUSH 10 ML SYR IVP PRN; +REGADENOSON 0.4 MG/5 ML SYR (LEXISCAN) IV ONE
[2022-05-31 12:58] VITALS: BP 154/90
--- NOTE | 2022-06-01 07:51 | Cardiology Stress Test Report ---
Stress Test Report Date of Procedure/Referring: Date of Procedure: May 31, 2022 PCP Chandrika Morales MD Admitting Physician Admitting Physician: Attending Physician: Eddie Hurt MD Baseline Heart Rate: 68 Baseline Blood Pressure: Blood Pressure Systolic: 154 Blood Pressure Diastolic: 90 Baseline Vitals Vital Signs Date Time Temp Pulse Resp B/P (MAP) Pulse Ox O2 Delivery O2 Flow Rate FiO2 05/31/22 12:58 68 154/90 (111) Baseline EKG: Baseline EKG: NSR Summary After explaining the procedure to the patient, she signed a consent and then brought to the stress nuclear laboratory. Patient received 0.4 mg Lexiscan for stress test, ECG, heart rate and blood pressure were monitored continuously. Resting and stress dose of radio tracer w ere injected, imaging was acquired and reviewed in short axis, horizontal long axis and vertical long axis views. TID: 1.01 SSS: 7 SDS: 7 EF: 47 Patient tolerated Lexiscan well Reversible ischemia involving the mid to apical inferior wall and mid anterior wall Normal left ventricular size mild hypokinesia involving the lateral wall, ejection fraction 47% Copy Copies To 1: [facility] [place], [place] EDDIE HURT MD Jun 01, 2022 07:51
== END ==
LOC: CARD 10:00
PROVIDERS: ATTEND Internal Medicine Cardiovascular Disease
DX: I11.9 Hypertensive heart disease without heart failure (principal); I35.1 Nonrheumatic aortic (valve) insufficiency; I25.10 Atherosclerotic heart disease of native coronary artery without angina pectoris
CPT/HCPCS: 78452; 93017; A9502; C8929; 93306

== ENCOUNTER 2022-06-20 09:54 | Emergency (ER) | payer MEDICARE, MEDICAID ==
[~2022-06-20] VITALS: Ht 172.7 cm; Wt 118.0 kg
[~2022-06-20 09:54] MED LIST changes: -CATHETER FLUSH 10 ML SYR IVP PRN; -REGADENOSON 0.4 MG/5 ML SYR (LEXISCAN) IV ONE
[2022-06-20 10:43] LABS: BASOPHILS # (AUTO) 0.1 10^3/uL (0.0-0.1); BASOPHILS % (AUTO) 1 % (0-10); EOSINOPHILS # (AUTO) 0.3 10^3/uL (0.0-0.3); EOSINOPHILS % (AUTO) 3 % (0-10); HEMATOCRIT 45 % (35-52); HEMOGLOBIN 14.5 g/dL (11.5-16.0); LYMPHOCYTES # (AUTO) 2.5 10^3/uL (1.0-4.0); LYMPHOCYTES % (AUTO) 23 % (12-44); MEAN CORPUSCULAR HEMOGLOBIN 27 pg (25-34); MEAN CORPUSCULAR HGB CONC 32 g/dL (32-36); MEAN CORPUSCULAR VOLUME 83 fL (80-99); MEAN PLATELET VOLUME 9.9 fL (9.0-12.2); MONOCYTES # (AUTO) 0.6 10^3/uL (0.0-1.0); MONOCYTES % (AUTO) 5 % (0-12); NEUTROPHILS # (AUTO) 7.7 10^3/uL (1.8-7.8); NEUTROPHILS % (AUTO) 68 % (42-75); PLATELET COUNT 545 10^3/uL (130-400); WHITE BLOOD COUNT 11.2 10^3/uL (4.3-11.0)
[2022-06-20] MEDS ORDERED: dilTIAZem DRIP PRE-MIX 125 ML IV SCH (10:45)
[2022-06-20 10:48] LABS: POTASSIUM 4.6 MMOL/L (3.6-5.0)
[2022-06-20 10:49] LABS: CALCIUM 9.8 MG/DL (8.5-10.1)
[2022-06-20 10:53] LABS: CREATININE SERUM 1.1 MG/DL (0.60-1.30)
[2022-06-20] MEDS ORDERED: APIXABAN 5 MG (ELIQUIS) TABLET PO ONE (11:00)
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
[2022-06-20] MEDS ORDERED: AMIODARONE FOR BOLUS 150 MG in NS (IVPB) 100 ML IV ONE (11:15)
[2022-06-20 11:16] LABS: TSH (THYROID ANALYZER) 1.33 UIU/ML (0.35-4.94)
[2022-06-20 11:40] LABS: FREE T4 (FREE THYROXINE) 1.04 NG/DL (0.70-1.48)
[2022-06-20] MEDS ORDERED: AMIODARONE 200 MG (CORDARONE) TAB PO STA (12:23)
[2022-06-20] MEDS ORDERED: AMIO200T65 PO (12:55)
[2022-06-20 13:25] VITALS: BP 129/94
== END 2022-06-20 13:25 | disposition home or self-care (01) ==
LOC: EDUNIT# 09:54 → ER 09:56
DX: I48.0 Paroxysmal atrial fibrillation (principal)
CPT/HCPCS: 36415; 80048; 83735; 84439; 84443; 85025; 93005; 93041

== ENCOUNTER 2022-06-28 06:30 | Emergency (ER) | payer MEDICARE, MEDICAID ==
[~2022-06-28] VITALS: Ht 172.7 cm; Wt 118.0 kg
[2022-06-28 06:55] LABS: BASOPHILS # (AUTO) 0.1 10^3/uL (0.0-0.1); BASOPHILS % (AUTO) 0 % (0-10); EOSINOPHILS % (AUTO) 0 % (0-10); HEMATOCRIT 40 % (35-52); HEMOGLOBIN 13.1 g/dL (11.5-16.0); LYMPHOCYTES # (AUTO) 1.1 10^3/uL (1.0-4.0); LYMPHOCYTES % (AUTO) 9 % (12-44); MEAN CORPUSCULAR HEMOGLOBIN 27 pg (25-34); MEAN CORPUSCULAR HGB CONC 33 g/dL (32-36); MEAN CORPUSCULAR VOLUME 82 fL (80-99); MEAN PLATELET VOLUME 9.8 fL (9.0-12.2); MONOCYTES # (AUTO) 0.6 10^3/uL (0.0-1.0); MONOCYTES % (AUTO) 5 % (0-12); NEUTROPHILS # (AUTO) 10.3 10^3/uL (1.8-7.8); NEUTROPHILS % (AUTO) 84 % (42-75); PLATELET COUNT 372 10^3/uL (130-400); WHITE BLOOD COUNT 12.2 10^3/uL (4.3-11.0)
[2022-06-28] MEDS ORDERED: ACETAMINOPHEN 500 MG TAB (TYLENOL) PO ONE (07:00)
[2022-06-28] MEDS ORDERED: NS IV 1000 ML 1,000 ML IV SCH (07:00)
[2022-06-28 07:22] LABS: ALBUMIN 3.8 GM/DL (3.2-4.5); POTASSIUM 3.9 MMOL/L (3.6-5.0)
[2022-06-28 07:24] LABS: TOTAL PROTEIN 7.6 GM/DL (6.4-8.2)
[2022-06-28 07:26] LABS: BILIRUBIN,TOTAL 0.6 MG/DL (0.1-1.0)
[2022-06-28 07:28] LABS: CREATININE SERUM 1.05 MG/DL (0.60-1.30)
[2022-06-28 07:31] LABS: MAGNESIUM 1.9 MG/DL (1.6-2.4)
[2022-06-28] MEDS ORDERED: cefTRIAXone PRE-MIX 50 ML IV ONE (09:59)
[2022-06-28 10:50] VITALS: BP 135/81
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
[2022-06-28] MEDS ORDERED: cefTRIAXone IV/IM 1,000 MG in NS (IVPB) 50 ML IV SCH (11:30)
[2022-06-28 11:32] LABS: COLOR,URINE YELLOW
[2022-06-28 11:34] LABS: BILIRUBIN,URINE NEGATIVE (NEGATIVE); CLARITY,URINE CLOUDY; GLUCOSE, URINE (UA) 3+ (NEGATIVE); KETONES,URINE NEGATIVE (NEGATIVE); NITRITE,URINE NEGATIVE (NEGATIVE); PH,URINE 5.5 (5-9); PROTEIN,URINE 1+ (NEGATIVE)
[2022-06-28 11:34] LABS: FREE T4 (FREE THYROXINE) 1.08 NG/DL (0.70-1.48)
[2022-06-28 11:35] LABS: BACTERIA,URINE LARGE /HPF; LEUKOCYTE ESTERASE ,URINE TRACE (NEGATIVE)
== END 2022-06-28 10:50 | disposition home or self-care (01) ==
LOC: ER 06:30 → EDUNIT# 06:30 → ER 10:50
DX: N39.0 Urinary tract infection, site not specified (principal); H66.92 Otitis media, unspecified, left ear; Z20.822 Contact with and (suspected) exposure to COVID-19
CPT/HCPCS: 36415; 80053; 81000; 83735; 84439; 84443; 85025; 86141; 87088; 87636

== ENCOUNTER 2022-11-07 12:11 | Inpatient (IN) | payer MEDICARE, MEDICAID ==
[~2022-11-07] VITALS: Ht 172 cm; Wt 114.0 kg
[~2022-11-07 12:11] MED LIST changes: +DILT240C74 PO; -DILT240C87 PO; -ROPI1TAB PO; +ROPI1TAB46 PO
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
[2022-11-07 12:30] LABS: BASOPHILS # (AUTO) 0.1 10^3/uL (0.0-0.1); BASOPHILS % (AUTO) 1 % (0-10); EOSINOPHILS # (AUTO) 0.3 10^3/uL (0.0-0.3); EOSINOPHILS % (AUTO) 3 % (0-10); HEMATOCRIT 44 % (35-52); HEMOGLOBIN 13.7 g/dL (11.5-16.0); LYMPHOCYTES # (AUTO) 2.6 10^3/uL (1.0-4.0); LYMPHOCYTES % (AUTO) 22 % (12-44); MEAN CORPUSCULAR HEMOGLOBIN 27 pg (25-34); MEAN CORPUSCULAR HGB CONC 31 g/dL (32-36); MEAN CORPUSCULAR VOLUME 87 fL (80-99); MEAN PLATELET VOLUME 10.3 fL (9.0-12.2); MONOCYTES # (AUTO) 0.7 10^3/uL (0.0-1.0); MONOCYTES % (AUTO) 6 % (0-12); NEUTROPHILS # (AUTO) 8.3 10^3/uL (1.8-7.8); NEUTROPHILS % (AUTO) 69 % (42-75); PLATELET COUNT 405 10^3/uL (130-400); WHITE BLOOD COUNT 12.1 10^3/uL (4.3-11.0)
[2022-11-07] MEDS ORDERED: NITROGLYCERIN 0.4 MG SL TABLETS BTL 25'S SL PRN ×2 (12:30→16:30)
[2022-11-07] MEDS ORDERED: ASPIRIN 81 MG CHEWABLE TABLET PO ONE (12:30)
[2022-11-07 12:40] LABS: INR 1.2 (0.8-1.4); PROTHROMBIN TIME PATIENT 14.9 SEC (12.2-14.7)
--- NOTE | 2022-11-07 12:45 | Diagnostic Imaging Report ---
INDICATION: Chest pain. COMPARISON: Exam compared to 05/05/2021. FINDINGS: Lungs are clear. No failure, effusion, or pneumothorax. IMPRESSION: No acute-appearing abnormality. Dictated by: Dictated on workstation # [id number]
[2022-11-07 12:48] LABS: ALANINE AMINOTRANSFERASE 16 U/L (0-55); ALBUMIN 4.2 GM/DL (3.2-4.5); ALKALINE PHOSPHATASE 72 U/L (40-136); BILIRUBIN,TOTAL 0.4 MG/DL (0.1-1.0); BUN/CREATININE RATIO 15; CALCIUM 9.1 MG/DL (8.5-10.1); CARBON DIOXIDE 23 MMOL/L (21-32); CHLORIDE 103 MMOL/L (98-107); CREATININE SERUM 1.45 MG/DL (0.60-1.30); GFR ESTIMATED 39; GLUCOSE 273 MG/DL (70-105); MAGNESIUM 2.2 MG/DL (1.6-2.4); POTASSIUM 3.8 MMOL/L (3.6-5.0); SODIUM 137 MMOL/L (135-145); TOTAL PROTEIN 7.7 GM/DL (6.4-8.2)
[2022-11-07] MEDS: NS IV 1000 ML 1,000 ML IV SCH ×2 (13:02→22:26)
[2022-11-07] MEDS ORDERED: ONDANSETRON INJECTION 4 MG/2 ML (SDV) IVP PRN (16:30)
[2022-11-07] MEDS ORDERED: PATIENT MAY USE OWN MEDS, ALL PO SCH (16:30)
[2022-11-07] MEDS ORDERED: morphine INJ 4 MG/ML 1 ML (VIAL/SYRINGE) IV PRN (16:30)
--- NOTE | 2022-11-07 16:56 | Consultation-Cardiology ---
HPI-Cardiology Cardiology Consultation Date of Consultation 11/07/22 Date of Admission Time Seen by Provider: 16:49 Indication: Chest pain HPI 67-year-old lady with history of coronary artery disease, hypertension hyperlipidemia known to have an abnormal stress test and cardiac catheterization was delayed due to needing cataract surgery, was in her usual state of health, had an episode of palpitation felt weak and diaphoretic sat in her chair. Had some pain in her right arm. EMT were called and they helped her to her car and she was brought to the emergency room. On my evaluation she was laying down in bed, feeling better, she was noted to have mildly elevated troponin Home Medications & Allergies Allergies: Coded Allergies: naproxen (Verified Adverse Reaction, Unknown, DECREASES KIDNEY FUNCTION, 06/04/20) Home Medication List Reviewed: Yes VIO-Tyavrd-Vhaipv Hx Patient Social History Marital Status: single Employed/Student: retired [employer] Smoke Exposure: No Recent Hopitalizations: No Alcohol Use?: No Immunizations Up To Date Tetanus Booster (TDap): Unknown Past Medical History Discussed below Family Medical History Significant Family History: Cancer, COPD Family History: Cancer of mouth 19 MOTHER FH: emphysema Review of Systems-General Review of Systems Constitutional: see HPI, malaise, weakness EENTM: see HPI, no symptoms reported Respiratory: no symptoms reported, see HPI Cardiovascular: see HPI, chest pain; No edema, No Hx of Intervention; palpitations; No syncope, No vascular heart diseas, No other Gastrointestinal: no symptoms reported, see HPI Genitourinary: no symptoms reported, see HPI Musculoskeletal: no symptoms reported Skin: no symptoms reported Psychiatric/Neurological: No Symptoms Reported All Other Systems Reviewed Negative Unless Noted: Yes Reviewed Test Results Reviewed Test Results Lab Laboratory Tests Test 11/07/22 12:20 11/07/22 14:43 Range/Units White Blood Count 12.1 H 4.3-11.0 10^3/uL Red Blood Count 5.01 3.80-5.11 10^6/uL Hemoglobin 13.7 11.5-16.0 g/dL Hematocrit 44 35-52 % Mean Corpuscular Volume 87 80-99 fL Mean Corpuscular Hemoglobin 27 25-34 pg Mean Corpuscular Hemoglobin Concent 31 L 32-36 g/dL Red Cell Distribution Width 14.4 10.0-14.5 % Platelet Count 405 H 130-400 10^3/uL Mean Platelet Volume 10.3 9.0-12.2 fL Immature Granulocyte % (Auto) 0 % Neutrophils (%) (Auto) 69 42-75 % Lymphocytes (%) (Auto) 22 12-44 % Monocytes (%) (Auto) 6 0-12 % Eosinophils (%) (Auto) 3 0-10 % Basophils (%) (Auto) 1 0-10 % Neutrophils # (Auto) 8.3 H 1.8-7.8 10^3/uL Lymphocytes # (Auto) 2.6 1.0-4.0 10^3/uL Monocytes # (Auto) 0.7 0.0-1.0 10^3/uL Eosinophils # (Auto) 0.3 0.0-0.3 10^3/uL Basophils # (Auto) 0.1 0.0-0.1 10^3/uL Immature Granulocyte # (Auto) 0.0 0.0-0.1 10^3/uL Prothrombin Time 14.9 H 12.2-14.7 SEC INR Comment 1.2 0.8-1.4 Activated Partial Thromboplast Time 30 24-35 SEC Sodium Level 137 135-145 MMOL/L Potassium Level 3.8 3.6-5.0 MMOL/L Chloride Level 103 98-107 MMOL/L Carbon Dioxide Level 23 21-32 MMOL/L Anion Gap 11 5-14 MMOL/L Blood Urea Nitrogen 22 H 7-18 MG/DL Creatinine 1.45 H 0.60-1.30 MG/DL Estimat Glomerular Filtration Rate 39 BUN/Creatinine Ratio 15 Glucose Level 273 H 70-105 MG/DL Calcium Level 9.1 8.5-10.1 MG/DL Corrected Calcium 8.9 8.5-10.1 MG/DL Magnesium Level 2.2 1.6-2.4 MG/DL Total Bilirubin 0.4 0.1-1.0 MG/DL Aspartate Amino Transf (AST/SGOT) 15 5-34 U/L Alanine Aminotransferase (ALT/SGPT) 16 0-55 U/L Alkaline Phosphatase 72 40-136 U/L Myoglobin 91.3 10.0-92.0 NG/ML Troponin I < 0.028 0.052 H <0.028 NG/ML B-Type Natriuretic Peptide 147.8 H <100.0 PG/ML Total Protein 7.7 6.4-8.2 GM/DL Albumin 4.2 3.2-4.5 GM/DL Physical Exam Physical Exam Vital Signs Vital Signs - First Documented 11/07/22 11/07/22 12:18 16:10 Temp 35.9 Pulse 121 Resp 20 B/P (MAP) 133/85 (101) Pulse Ox 96 O2 Delivery Room Air Capillary Refill : Height, Weight, BMI Height: 5'8.00" Weight: 288lbs. 0.2oz. 130.326906zq; 38.53 BMI Method: General Appearance: No Apparent Distress, WD/WN HEENT: PERRL/EOMI, Pharynx Normal, Other (Several missing teeth) Neck: Full Range of Motion, Normal Inspection, Non Tender, Supple Respiratory: Chest Non Tender, Lungs Clear, Normal Breath Sounds, No Accessory Muscle Use, No Respiratory Distress Cardiovascular: Regular Rate, Rhythm, No Edema, No JVD, No Murmur, Normal Peripheral Pulses, Extra Beats, Tachycardia Gastrointestinal: Non Tender, Soft Extremity: Normal Capillary Refill, Normal Inspection, Normal Range of Motion, Non Tender, No Calf Tenderness Neurologic/Psychiatric: Alert, Oriented x3, No Motor/Sensory Deficits, Normal Mood/Affect, food and nutrition supervisor II-XII Norm as Tested Skin: Normal Color, Warm/Dry Lymphatic: No Adenopathy A/P-Cardiology Admission Diagnosis Chest pain Palpitation Non-ST elevation myocardial infarction Paroxysmal atrial fibrillation Assessment/Plan Chest pain, palpitation, mildly elevated troponin Patient has known Abnormal stress test May 2022 showing reversible ischemia involving the mid to apical inferior wall and mid anterior wall. SSS 7, SDS 7, TID 1.01. We will continue monitoring starting aspirin and Lovenox, planning for possible cardiac catheterization with IVUS to the left main Palpitation, history of paroxysmal atrial fibrillation Currently tachycardic. I will reevaluate EKG Starting on Cardizem and hold Eliquis. Reports she is undergoing treatment for macular degeneration and is needing cataract surgery in the near future. Reported that her battery starter has okayed having intervention and stenting and she would not require interruption of her oral anticoagulation. Coronary artery disease- Cardiac catheterization on 05/01/2018 revealing heavily calcified left main artery with 50 percent stenosis, nonobstructive disease. Was referred to Dr. Min for IVUS of LM and possible stenting and underwent catheterization May 20, 2018 and underwent 2.75x12 mm Promus Premier to OM. 30-40% stenosis of left main, confirmed by IVUS. Paroxysmal atrial fibrillation-maintained on amiodarone and Eliquis, had another episode of atrial fibrillation with rapid ventricular response in March 2020 and she was hospitalized. s/p LINq implantations done 05/06/20. Last interrogation was done in February 2022 showing multiple short episodes of atrial fibrillation lasting up to 6 minutes. Maintained on Eliquis and Multaq. [id number] Score of 5, yearly risk of stroke without oral anticoagulation is 6.7%, maintained on Eliquis 5 mg twice daily Echocardiogram was done on December 01, 2019 showing normal LV size with EF 50 percent, grade 1 diastolic dysfunction, left atrium mildly dilated, PA pressure 20-25 mmHg. repeat echo in March 2020 showing normal LV size, EF 45-50 percent, grade 1 diastolic dysfunction, mitral annular calcification, PA pressure 40-45 mmHg. I will evaluate 2D echo Diabetes mellitus, followed and managed by primary care physician Chronic renal insufficiency, continue to monitor renal function, followed by primary care physician Obesity, BMI 39, discussed weight loss and exercise Nonobstructive carotid artery stenosis per carotid duplex done in February 2022. Hypertension, restart home medication monitor blood pressure Hyperlipidemia, restart home medication monitor blood pressure Hypothyroidism, followed and managed by primary care physician Clinical Quality Measures AMI/AHF: ASA po Prior to arrival: EDDIE Mckeon MD Nov 07, 2022 16:56
[2022-11-07] MEDS ORDERED: ENOXAPARIN 100 MG/1 ML SYRINGE SC SCH (17:00)
[2022-11-07 17:15] VITALS: BP 143/110
[2022-11-07 17:30] VITALS: BP 179/89
[2022-11-07] MEDS: ENOXAPARIN 120 MG/0.8 ML SYRINGE SQ SCH (17:35)
[2022-11-07] MEDS: DRONEDARONE 400 MG TABLET PO SCH (20:21)
[2022-11-07] MEDS: FENOFIBRATE, Micronized 134 MG CAPSULE PO SCH (20:21)
[2022-11-07 20:22] VITALS: BP 151/100
[2022-11-08] VITALS (19 sets, daily range): BP systolic 95–157; BP diastolic 61–138
[2022-11-08] MEDS ORDERED: dilTIAZem DRIP PRE-MIX 125 ML IV ONE (00:56)
[2022-11-08] MEDS ORDERED: dilTIAZem IV FOR DRIP 125 MG in NS (IVPB) 100 ML 100 ML IV SCH (01:00)
--- NOTE | 2022-11-08 02:53 | Tele-ICU Progress Note ---
Subjective Subjective/Events-last exam 67 year old female with history of CAD, HTN, HL, paroxysmal atrial fibrillation admitted yesterday to stepdown for NSTEMI. Initially presented to ED with palpiations and right arm pain with elevation in troponin. Overnight, patient went into atrial fibrillation with RVR with heart rate in 170s. She was transferred to ICU and started on cardizem infusion by cardiology. Currently, patient has heart rate in 130s. No palpiations. Denies chest pain. Denies dyspnea. Vitals reviewed Labs reviewed - wbc 12.1, cr 1.45, TnI 0.052, bnp 147.8, glucose 273 Imaging reviewed - normal cxr Diagnosis: Atrial fibrillation with RVR - now on cardizem gtt. Still in afib. Cardiology managing. Discussed with VIKI HORNE - plan for cardiac cath tomorrow. Leukocytosis - only slight Elevated creatinine - unclear baseline. monitor creatinine, UOP. A total of _ 31 _ minutes of critical care time was devoted to this patient, including reviewing this patient's available data, including medical history, events of note and test results. This was required to treat and/or prevent further deterioration of critical care conditions ( as above ). Service provided to a patient admitted to ICU bed via interactive E-CARE system with real-time audio and video telecommunications from [facility] tele- ICU hub located in [place], [place] Sepsis Event Evaluation Height, Weight, BMI Height: 5'8.00" Weight: 288lbs. 0.2oz. 130.142154je; 38.53 BMI Method: Exam Exam Patient acknowledged, consented, and participated in this virtual visit which was conducted using real time audio/video Vital Signs Date Time Temp Pulse Resp B/P (MAP) Pulse Ox O2 Delivery O2 Flow Rate FiO2 11/08/22 01:00 176 123/97 11/08/22 00:28 138 11/08/22 00:11 95 13 135/74 (94) 93 Room Air 11/07/22 20:22 81 151/100 (117) 97 Room Air 11/07/22 20:00 36.4 Room Air 11/07/22 20:00 98 Room Air 11/07/22 19:00 87 11/07/22 17:30 86 11/07/22 17:30 86 15 179/89 (119) 97 Room Air 11/07/22 17:15 84 15 143/110 (121) 97 Room Air 11/07/22 16:32 Room Air 11/07/22 16:10 86 16 127/66 98 Room Air 11/07/22 12:18 35.9 121 20 133/85 (101) 96 I & O 11/08/22 07:00 Intake Total 2500 ml Balance 2500 ml Height & Weight Height: 5'8.00" Weight: 288lbs. 0.2oz. 130.454149ug; 38.53 BMI Method: General Appearance: No Apparent Distress, WD/WN HEENT: PERRL/EOMI, Pharynx Normal, Other (Several missing teeth) Neck: Full Range of Motion, Normal Inspection, Non Tender, Supple Respiratory: Chest Non Tender, Lungs Clear, Normal Breath Sounds, No Accessory Muscle Use, No Respiratory Distress Cardiovascular: Regular Rate, Rhythm, No Edema, No JVD, No Murmur, Normal Peripheral Pulses, Extra Beats, Tachycardia Extremity: Normal Capillary Refill, Normal Inspection, Normal Range of Motion, Non Tender, No Calf Tenderness Neurologic/Psychiatric: Alert, Oriented x3, No Motor/Sensory Deficits, Normal 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
[2022-11-08 04:37] LABS: BASOPHILS # (AUTO) 0.1 10^3/uL (0.0-0.1); BASOPHILS % (AUTO) 1 % (0-10); EOSINOPHILS # (AUTO) 0.4 10^3/uL (0.0-0.3); EOSINOPHILS % (AUTO) 4 % (0-10); HEMATOCRIT 41 % (35-52); LYMPHOCYTES # (AUTO) 3.5 10^3/uL (1.0-4.0); LYMPHOCYTES % (AUTO) 38 % (12-44); MEAN CORPUSCULAR HEMOGLOBIN 27 pg (25-34); MEAN CORPUSCULAR HGB CONC 32 g/dL (32-36); MEAN CORPUSCULAR VOLUME 86 fL (80-99); MEAN PLATELET VOLUME 10.4 fL (9.0-12.2); MONOCYTES # (AUTO) 0.7 10^3/uL (0.0-1.0); MONOCYTES % (AUTO) 7 % (0-12); NEUTROPHILS # (AUTO) 4.6 10^3/uL (1.8-7.8); NEUTROPHILS % (AUTO) 49 % (42-75); PLATELET COUNT 355 10^3/uL (130-400); WHITE BLOOD COUNT 9.3 10^3/uL (4.3-11.0)
[2022-11-08 04:46] LABS: ALBUMIN 3.8 GM/DL (3.2-4.5); POTASSIUM 3.6 MMOL/L (3.6-5.0)
[2022-11-08 04:48] LABS: CALCIUM 9.1 MG/DL (8.5-10.1)
[2022-11-08 04:49] LABS: TOTAL PROTEIN 7.4 GM/DL (6.4-8.2)
[2022-11-08 04:51] LABS: BILIRUBIN,TOTAL 0.5 MG/DL (0.1-1.0)
[2022-11-08 04:52] LABS: PHOSPHORUS 3.1 MG/DL (2.3-4.7)
[2022-11-08 04:53] LABS: CREATININE SERUM 1.09 MG/DL (0.60-1.30)
[2022-11-08 04:55] LABS: MAGNESIUM 2.1 MG/DL (1.6-2.4)
[2022-11-08] MEDS: ENOXAPARIN 120 MG/0.8 ML SYRINGE SQ SCH ×2 (04:58→17:09)
[2022-11-08] MEDS ORDERED: NS IV 500 ML 500 ML IV PRN (06:00)
[2022-11-08] MEDS: POTASSIUM CHLORIDE 20 MEQ TABLET PO SCH (06:35)
[2022-11-08] MEDS: POTASSIUM CL 10MEQ/50ML IVPB 50 ML IV SCH (06:35)
[2022-11-08] MEDS: MAGNESIUM 1 GM/100 ML IVPB 100 ML IV SCH (06:35)
[2022-11-08] MEDS ORDERED: dilTIAZem DRIP 125 MG/125 ML DRIP IV SCH (07:45)
[2022-11-08] MEDS ORDERED: HEParin (CATH LAB) 0 ML IV ONE (08:29)
[2022-11-08] MEDS ORDERED: LIDOCAINE 1% INJ 20 ML VIAL ONE (08:29)
[2022-11-08] MEDS ORDERED: NS IV 1000 ML 0 ML ONE (08:29)
[2022-11-08] MEDS ORDERED: ASPIRIN enteric coated 81MG TABLET PO SCH (09:00)
[2022-11-08] MEDS ORDERED: AMIODARONE FOR BOLUS 150 MG in NS (IVPB) 100 ML 100 ML IV ONE (09:00)
[2022-11-08] MEDS: dilTIAZem ER 240 MG CAPSULE PO SCH (09:07)
[2022-11-08] MEDS: ASPIRIN enteric coated 81MG TABLET PO SCH (09:07)
[2022-11-08] MEDS: DRONEDARONE 400 MG TABLET PO SCH (09:07)
[2022-11-08] MEDS: PANTOPRAZOLE 40 MG TABLET PO SCH (09:07)
[2022-11-08] MEDS: AMIODARONE FOR DRIP 450 MG in NORMAL SALINE (EXCEL) 250 ML 250 ML IV SCH ×2 (09:08→17:04)
[2022-11-08] MEDS ORDERED: POTASSIUM CHLORIDE 20 MEQ TABLET PO ONE (09:30)
[2022-11-08] MEDS: NS IV 1000 ML 1,000 ML IV SCH ×2 (09:31→19:51)
--- NOTE | 2022-11-08 09:31 | Cardiology Progress Note ---
Subjective Date Seen by Provider: Nov 08, 2022 Time Seen by Provider: 09:29 Subjective/Events-last exam Patient had an episode of atrial fibrillation with rapid ventricular response last night, she was transferred to ICU and started on Cardizem drip, converted to sinus rhythm. Review of Systems General: No Chills, No Night Sweats, No Fatigue, No Malaise, No Appetite, No Other HEENT: No Head Aches, No Visual Changes, No Eye Pain, No Ear Pain, No Dysphasia, No Sinus Congestion, No Post Nasal Drip, No Sore Throat, No Other Pulmonary: No Dyspnea, No Cough, No Pleuritic Chest Pain, No Other Cardiovascular: No: Chest Pain, Palpitations, Orthopnea, Paroxysmal Noc. Dyspnea, Edema, Lt Headedness, Other Objective-Cardiology Exam Last Set of Vital Signs Vital Signs 11/08/22 11/08/22 08:15 09:08 Pulse 82 Resp 11 B/P (MAP) 99/61 Pulse Ox 94 O2 Delivery Room Air I&O Intake and Output 11/08/22 00:00 Intake Total 2500 ml Balance 2500 ml Intake Oral 1500 ml IV Total 1000 ml # Voids 6 Daily Weight Change Yes, 2-13 lbs General: Alert, Oriented X3, Cooperative HEENT: Atraumatic, PERRLA Neck: Supple, No JVD, No Thyromegaly Lungs: Clear to Auscultation, Normal Air Movement Heart: Regular Rate, Normal S1, Normal S2 Abdomen: Normal Bowel Sounds, Soft, No Tenderness, No Hepatosplenomegaly, No Masses Extremities: No Clubbing, No Cyanosis, No Edema, Normal Pulses, No Tenderness/Swelling Skin: No Rashes, No Breakdown, No Significant Lesion Neuro: Normal Gait, Normal Speech, Strength at 5/5 X4 Ext, Normal Tone, Sensation Intact Psych/Mental Status: Mental Status NL, Mood NL Results Lab Laboratory Tests 11/07/22 12:20 11/08/22 03:51 A/P-Cardiology Admission Diagnosis Chest pain Palpitation Non-ST elevation myocardial infarction Paroxysmal atrial fibrillation Assessment/Plan Chest pain, palpitation, mildly elevated troponin Patient has known Abnormal stress test May 2022 showing reversible ischemia involving the mid to apical inferior wall and mid anterior wall. SSS 7, SDS 7, TID 1.01. We will continue monitoring starting aspirin and Lovenox, planning for possible cardiac catheterization with IVUS to the left main Palpitation, aroxysmal atrial fibrillation Was in atrial fibrillation with rapid ventricular response, converted to sinus rhythm on Cardizem drip I will load with amiodarone and switch her to amiodarone. History of loop monitor implantation April 2020 Patient is maintained on Eliquis Reports she is undergoing treatment for macular degeneration and is needing cataract surgery in the near future. Reported that her floorworker lasting has okayed having intervention and stenting and she would not require interruption of her oral anticoagulation. Coronary artery disease- Cardiac catheterization on 05/01/2018 revealing heavily calcified left main artery with 50 percent stenosis, nonobstructive disease. Was referred to Dr. Min for IVUS of LM and possible stenting and underwent catheterization May 20, 2018 and underwent 2.75x12 mm Promus Premier to OM. 30-40% stenosis of left main, confirmed by IVUS. [id number] Score of 5, yearly risk of stroke without oral anticoagulation is 6.7%, maintained on Eliquis 5 mg twice daily Echocardiogram was done on December 01, 2019 showing normal LV size with EF 50 percent, grade 1 diastolic dysfunction, left atrium mildly dilated, PA pressure 20-25 mmHg. repeat echo in March 2020 showing normal LV size, EF 45-50 percent, grade 1 diastolic dysfunction, mitral annular calcification, PA pressure 40-45 mmHg. I will evaluate 2D echo Diabetes mellitus, followed and managed by primary care physician Chronic renal insufficiency, continue to monitor renal function, followed by primary care physician Obesity, BMI 39, discussed weight loss and exercise Nonobstructive carotid artery stenosis per carotid duplex done in February 2022. Hypertension, restart home medication monitor blood pressure Hyperlipidemia, restart home medication monitor blood pressure Hypothyroidism, followed and managed by primary care physician EDDIE HURT MD Nov 08, 2022 09:31
--- NOTE | 2022-11-08 10:15 | Tele-ICU Progress Note ---
Subjective Date Seen by a Provider: Nov 08, 2022 Time Seen by a Provider: 10:14 Subjective/Events-last exam (Tele-ICU Physician , Progress Note ) Service provided via interactive audio and video telecommunications E-CARE system to a patient admitted to ICU bed in [facility]. Patient is seen today due to persistent need of ICU care Available chart/ vitals / labs / Images reviewed Video assessment done using teleICU camera, rest of exam as per RN Discussed with RN Events overnight : Afebrile hemodynamically stable Respiratory - I/O = Drips: Pressors- no Hospital course: (11/08) 67yF Admitted w/ unstable angina, NSTEMI, Prox AFIB. 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 HERNÁN - to follow periph , (Central Line Necessity Reviewed) Mahajan: void OG: Nutrition: Analgesia: Anxiety/ delirium VTE Prophylaxis: dong 110 bid , eliquis picker tender onhold Stress Ulcer Prophylaxis: Plans in collaboration with bedside consultants and IM MDs. Discussed with RN to reach out if any questions or concerns Case and care daily discussed on multidisciplinary rounds ( RN, PharmD, Community Associate , Respiratory Therapy, novelty worker ) A total of _10minutes of critical care time was devoted to this patient today, required to treat and/or prevent further deterioration of critical care condition ( as above ) . I am remotely monitoring this patient from another state. I am unable to do the bedside exam, and history/physical and pertinent information is taken from other notes in the computer and bedside staff. Sepsis Event Evaluation Height, Weight, BMI Height: 5'8.00" Weight: 288lbs. 0.2oz. [id number]; 38.53 BMI Method: Exam Exam Patient acknowledged, consented, and participated in this virtual visit which was conducted using real time audio/video Vital Signs Date Time Temp Pulse Resp B/P (MAP) Pulse Ox O2 Delivery O2 Flow Rate FiO2 11/08/22 09:15 79 18 105/58 (74) 94 Room Air 11/08/22 09:08 82 99/61 11/08/22 09:00 86 23 97 Room Air 11/08/22 08:45 80 31 96 Room Air 11/08/22 08:30 88 33 119/87 (98) 95 Room Air 11/08/22 08:15 82 11 99/61 (74) 94 Room Air 11/08/22 08:00 86 19 105/78 (87) 95 Room Air 11/08/22 08:00 100 Room Air 11/08/22 07:45 79 14 109/60 (76) 95 Room Air 11/08/22 07:30 80 14 105/62 (76) 95 Room Air 11/08/22 07:15 79 14 98/61 (73) 94 Room Air 11/08/22 07:13 79 11/08/22 07:05 78 113/73 11/08/22 06:38 87 11/08/22 06:05 130 37 95/78 (84) 93 Room Air 11/08/22 05:00 130 16 120/83 (105) 94 Room Air 11/08/22 04:45 128 101/81 (90) 93 Room Air 11/08/22 04:39 133 22 114/80 (93) 93 Room Air 11/08/22 04:30 144 20 93 Room Air 11/08/22 04:15 160 17 94 Room Air 11/08/22 04:00 140 23 128/92 (98) 93 Room Air 11/08/22 04:00 140 128/92 11/08/22 03:45 128 17 151/88 (96) 90 Room Air 11/08/22 03:30 130 14 132/110 (123) 93 Room Air 11/08/22 03:15 126 19 132/99 (117) 89 Room Air 11/08/22 03:00 133 20 121/111 (117) 91 Room Air 11/08/22 02:45 137 13 138/111 (121) 93 Room Air 11/08/22 02:30 133 20 157/109 (134) 92 Room Air 11/08/22 02:15 137 22 143/99 (109) 93 Room Air 11/08/22 02:05 141 121/78 11/08/22 02:00 141 21 121/78 (97) 93 Room Air 11/08/22 01:45 140 20 116/81 (98) 93 Room Air 11/08/22 01:42 134 15 118/86 (91) 94 Room Air 11/08/22 01:15 131 31 95 Room Air 11/08/22 01:00 154 18 154/138 (147) 95 Room Air 11/08/22 01:00 176 123/97 11/08/22 01:00 159 11/08/22 00:55 130 123/97 (107) Room Air 11/08/22 00:28 138 11/08/22 00:11 95 13 135/74 (94) 93 Room Air 11/07/22 20:22 81 151/100 (117) 97 Room Air 11/07/22 20:00 36.4 Room Air 11/07/22 20:00 98 Room Air 11/07/22 19:00 87 11/07/22 17:30 86 11/07/22 17:30 86 15 179/89 (119) 97 Room Air 11/07/22 17:15 84 15 143/110 (121) 97 Room Air 11/07/22 16:32 Room Air 11/07/22 16:10 86 16 127/66 98 Room Air 11/07/22 12:18 35.9 121 20 133/85 (101) 96 I & O 11/08/22 07:00 Intake Total 2500 ml Output Total 450 ml Balance 2050 ml Height & Weight Height: 5'8.00" Weight: 288lbs. 0.2oz. 130.997180nf; 38.53 BMI Method: General Appearance: No Apparent Distress, WD/WN HEENT: PERRL/EOMI, Pharynx Normal, Other (Several missing teeth) Neck: Full Range of Motion, Normal Inspection, Non Tender, Supple Respiratory: Chest Non Tender, Lungs Clear, Normal Breath Sounds, No Accessory Muscle Use, No Respiratory Distress Cardiovascular: Regular Rate, Rhythm, No Edema, No JVD, No Murmur, Normal Peripheral Pulses, Extra Beats, Tachycardia Extremity: Normal Capillary Refill, Normal Inspection, Normal Range of Motion, Non Tender, No Calf Tenderness Neurologic/Psychiatric: Alert, Oriented x3, No Motor/Sensory Deficits, Normal 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
[2022-11-08] MEDS ORDERED: TRM50T PO (12:38)
[2022-11-08] MEDS ORDERED: TRAM50TA3 PO (12:38)
[2022-11-08] MEDS ORDERED: CHOL10007 PO (12:38)
[2022-11-08] MEDS ORDERED: DULA4.5P SQ (12:42)
--- NOTE | 2022-11-08 18:06 | History & Physical ---
HPI History of Present Illness: 67 yo female presented to ER, she states due to dizziness and a fib. Per ER she complained of chest pain. She denies current chest pain, shortness of breath, palpitations, dizziness. Source: patient Date seen by provider: Nov 08, 2022 Time Seen by Provider: 10:30 Attending Physician Chandrika Morales MD PCP Admitting Physician: Cassie Fragoso MD Attending Physician: Cassie Fragoso MD Consult Date of Admission Nov 08, 2022 at 13:08 Home Medications Home Medications Reviewed patient Home Medication Reconciliation performed by pharmacy medication reconciliations medical lab technician and/or nursing. Patients Allergies have been reviewed. Allergies Coded Allergies: naproxen (Verified Adverse Reaction, Unknown, DECREASES KIDNEY FUNCTION, 06/04/20) [id number] Hx Patient Social History Marrital Status: single Employed/Student: retired 2nd Hand Smoke Exposure: No Recent Hopitalizations: No Alcohol Use?: No Immunizations Up To Date Tetanus Booster (TDap): Unknown Influenza Vaccine Up-to-Date: Yes; Up-to-Date First/Initial COVID19 Vaccinat: STATES SHE HAS HAD 2 VACCINES Second COVID19 Vaccination Paramjit: STATES SHE HAS HAD 2 VACCINES Third COVID19 Vaccination Date: STATES SHE HAS HAD 2 VACCINES Past Medical History PMHx: P. Atrial Fibrillation HTN DMII HLD SurgHx: Cervical vetebrae surgery Hysterectomy Cholecystectomy Appendectomy Family Medical History Significant Family History: Cancer, COPD Family History: Cancer of mouth 19 MOTHER FH: emphysema Review of Systems ([facility]) Constitutional: No fever EENTM: No nose congestion, No throat pain Respiratory: No cough, No short of breath Cardiovascular: No chest pain Gastrointestinal: No abdominal pain, No constipation, No diarrhea, No nausea, No vomiting Genitourinary: No dysuria Musculoskeletal: joint pain, muscle pain Skin: No rash Psychiatric/Neurological: No Symptoms Reported Reviewed Test Results Reviewed Test Results Lab Laboratory Tests Test 11/07/22 12:20 11/07/22 14:43 11/08/22 03:51 Range/Units White Blood Count 12.1 H 9.3 4.3-11.0 10^3/uL Red Blood Count 5.01 4.78 3.80-5.11 10^6/uL Hemoglobin 13.7 13.0 11.5-16.0 g/dL Hematocrit 44 41 35-52 % Mean Corpuscular Volume 87 86 80-99 fL Mean Corpuscular Hemoglobin 27 27 25-34 pg Mean Corpuscular Hemoglobin Concent 31 L 32 32-36 g/dL Red Cell Distribution Width 14.4 14.4 10.0-14.5 % Platelet Count 405 H 355 130-400 10^3/uL Mean Platelet Volume 10.3 10.4 9.0-12.2 fL Immature Granulocyte % (Auto) 0 0 % Neutrophils (%) (Auto) 69 49 42-75 % Lymphocytes (%) (Auto) 22 38 12-44 % Monocytes (%) (Auto) 6 7 0-12 % Eosinophils (%) (Auto) 3 4 0-10 % Basophils (%) (Auto) 1 1 0-10 % Neutrophils # (Auto) 8.3 H 4.6 1.8-7.8 10^3/uL Lymphocytes # (Auto) 2.6 3.5 1.0-4.0 10^3/uL Monocytes # (Auto) 0.7 0.7 0.0-1.0 10^3/uL Eosinophils # (Auto) 0.3 0.4 H 0.0-0.3 10^3/uL Basophils # (Auto) 0.1 0.1 0.0-0.1 10^3/uL Immature Granulocyte # (Auto) 0.0 0.0 0.0-0.1 10^3/uL Prothrombin Time 14.9 H 12.2-14.7 SEC INR Comment 1.2 0.8-1.4 Activated Partial Thromboplast Time 30 24-35 SEC Sodium Level 137 138 135-145 MMOL/L Potassium Level 3.8 3.6 3.6-5.0 MMOL/L Chloride Level 103 106 98-107 MMOL/L Carbon Dioxide Level 23 19 L 21-32 MMOL/L Anion Gap 11 13 5-14 MMOL/L Blood Urea Nitrogen 22 H 18 7-18 MG/DL Creatinine 1.45 H 1.09 0.60-1.30 MG/DL Estimat Glomerular Filtration Rate 39 55 BUN/Creatinine Ratio 15 17 Glucose Level 273 H 192 H 70-105 MG/DL Calcium Level 9.1 9.1 8.5-10.1 MG/DL Corrected Calcium 8.9 9.3 8.5-10.1 MG/DL Magnesium Level 2.2 2.1 1.6-2.4 MG/DL Total Bilirubin 0.4 0.5 0.1-1.0 MG/DL Aspartate Amino Transf (AST/SGOT) 15 15 5-34 U/L Alanine Aminotransferase (ALT/SGPT) 16 14 0-55 U/L Alkaline Phosphatase 72 58 40-136 U/L Myoglobin 91.3 10.0-92.0 NG/ML Troponin I < 0.028 0.052 H <0.028 NG/ML B-Type Natriuretic Peptide 147.8 H <100.0 PG/ML Total Protein 7.7 7.4 6.4-8.2 GM/DL Albumin 4.2 3.8 3.2-4.5 GM/DL Phosphorus Level 3.1 2.3-4.7 MG/DL Radiology CXR no acute abnormalities Physical Exam-([facility]) Physical Exam Vital Signs VS - Last 72 Hours, by Label 11/07/22 11/07/22 11/07/22 11/07/22 12:18 16:10 16:32 17:15 Temp 35.9 Pulse 121 86 84 Resp 20 16 15 B/P (MAP) 133/85 (101) 127/66 143/110 (121) Pulse Ox 96 98 97 O2 Delivery Room Air Room Air Room Air 11/07/22 11/07/22 11/07/22 11/07/22 17:30 17:30 19:00 20:00 Pulse 86 86 87 Resp 15 B/P (MAP) 179/89 (119) Pulse Ox 97 98 O2 Delivery Room Air Room Air 11/07/22 11/07/22 11/08/22 11/08/22 20:00 20:22 00:11 00:28 Temp 36.4 Pulse 81 95 138 Resp 13 B/P (MAP) 151/100 (117) 135/74 (94) Pulse Ox 97 93 O2 Delivery Room Air Room Air Room Air 11/08/22 11/08/22 11/08/22 11/08/22 00:55 01:00 01:00 01:00 Pulse 130 159 176 154 Resp 18 B/P (MAP) 123/97 (107) 123/97 154/138 (147) Pulse Ox 95 O2 Delivery Room Air Room Air 11/08/22 11/08/22 11/08/22 11/08/22 01:15 01:42 01:45 02:00 Pulse 131 134 140 141 Resp 31 15 20 21 B/P (MAP) 118/86 (91) 116/81 (98) 121/78 (97) Pulse Ox 95 94 93 93 O2 Delivery Room Air Room Air Room Air Room Air 11/08/22 11/08/22 11/08/22 11/08/22 02:05 02:15 02:30 02:45 Pulse 141 137 133 137 Resp 22 20 13 B/P (MAP) 121/78 143/99 (109) 157/109 (134) 138/111 (121) Pulse Ox 93 92 93 O2 Delivery Room Air Room Air Room Air 11/08/22 11/08/22 11/08/22 11/08/22 03:00 03:15 03:30 03:45 Pulse 133 126 130 128 Resp 20 19 14 17 B/P (MAP) 121/111 (117) 132/99 (117) 132/110 (123) 151/88 (96) Pulse Ox 91 89 93 90 O2 Delivery Room Air Room Air Room Air Room Air 11/08/22 11/08/22 11/08/22 11/08/22 04:00 04:00 04:15 04:30 Pulse 140 140 160 144 Resp 23 17 20 B/P (MAP) 128/92 128/92 (98) Pulse Ox 93 94 93 O2 Delivery Room Air Room Air Room Air 11/08/22 11/08/22 11/08/22 11/08/22 04:39 04:45 05:00 06:05 Pulse 133 128 130 130 Resp 22 16 37 B/P (MAP) 114/80 (93) 101/81 (90) 120/83 (105) 95/78 (84) Pulse Ox 93 93 94 93 O2 Delivery Room Air Room Air Room Air Room Air 11/08/22 11/08/22 11/08/22 11/08/22 06:38 07:05 07:13 07:15 Pulse 87 78 79 79 Resp 14 B/P (MAP) 113/73 98/61 (73) Pulse Ox 94 O2 Delivery Room Air 11/08/22 11/08/22 11/08/22 11/08/22 07:30 07:45 08:00 08:00 Pulse 80 79 86 Resp 14 14 19 B/P (MAP) 105/62 (76) 109/60 (76) 105/78 (87) Pulse Ox 95 95 100 95 O2 Delivery Room Air Room Air Room Air Room Air 11/08/22 11/08/22 11/08/22 11/08/22 08:00 08:15 08:30 08:45 Temp 36.6 Pulse 82 88 80 Resp 11 33 31 B/P (MAP) 99/61 (74) 119/87 (98) Pulse Ox 94 95 96 O2 Delivery Room Air Room Air Room Air 11/08/22 11/08/22 11/08/22 11/08/22 09:00 09:08 09:15 10:00 Pulse 86 82 79 71 Resp 23 18 31 B/P (MAP) 99/61 105/58 (74) 121/60 (80) Pulse Ox 97 94 96 O2 Delivery Room Air Room Air Room Air 11/08/22 11/08/22 11/08/22 11/08/22 11:00 12:00 12:02 12:40 Temp 36.3 Pulse 72 73 73 Resp 18 17 B/P (MAP) 134/70 (91) 127/68 (87) Pulse Ox 95 99 O2 Delivery Room Air Room Air 11/08/22 11/08/22 11/08/22 11/08/22 13:00 14:00 15:00 15:40 Temp 36.4 Pulse 62 62 68 Resp 18 17 15 B/P (MAP) 117/61 (79) 152/115 (127) 123/59 (80) Pulse Ox 99 96 91 O2 Delivery Room Air Room Air Room Air 11/08/22 11/08/22 16:00 17:00 Pulse 77 73 Resp 16 22 B/P (MAP) 182/99 (126) 162/101 (121) Pulse Ox 94 95 O2 Delivery Room Air Room Air Capillary Refill : General Appearance: no apparent distress Respiratory: lungs clear, normal breath sounds Cardiovascular: regular rate, rhythm Gastrointestinal: normal bowel sounds, non tender, soft Extremities: no pedal edema Neurologic/Psychiatric: alert, normal mood/affect Skin: normal color, warm/dry Assessment/Plan Assessment/Plan Admission Status: Inpatient Order (span 2 midnights) Reason for Inpatient Admission: A fib with RVR requiring drip (1) Elevated troponin Status: Acute Assessment & Plan: Cardiology consulted, appreciate recommendations. (2) Paroxysmal atrial fibrillation with rapid ventricular response Status: Acute Assessment & Plan: Onset of RVR after admission, converted after cardizem drip initiation overnight. On amiodarone drip currently, appreciate Cardiology recommendations. (3) Paroxysmal atrial fibrillation Status: Chronic (4) Hyperlipidemia Status: Chronic (5) Hypertension Status: Chronic Qualifiers: Qualified Codes: I10 - Essential (primary) hypertension (6) Diabetes mellitus, type 2 Status: Chronic Qualifiers: Qualified Codes: E11.9 - Type 2 diabetes mellitus without complications (7) HERNÁN (obstructive sleep apnea) Status: Chronic (8) Morbid obesity Status: Chronic (9) DVT prophylaxis Status: Acute Assessment & Plan: Home anticoagulation Clinical Quality Measures AMI/AHF: ASA po Prior to arrival: CASSIE Jacobs MD Nov 08, 2022 18:05
[2022-11-08] MEDS: FENOFIBRATE, Micronized 134 MG CAPSULE PO SCH (20:35)
[2022-11-08] MEDS ORDERED: inSUlin DETERMIR 1 UNIT/0.01 ML (CHARGE PER UNIT) SQ SCH (21:00)
[2022-11-08] MEDS ORDERED: NON-FORMULARY MEDICATION 1 EA EA (Insulin Degludec (Tresiba Flextouch U-100) 25 UNIT) SC SCH (21:00)
[2022-11-08] MEDS ORDERED: NON-FORMULARY MEDICATION 1 EA EA (Imipramine HCl 50 MG) PO SCH (21:00)
[2022-11-08] MEDS ORDERED: IMIPRAMINE 25 MG TABLET PO SCH (21:00)
[2022-11-09] MEDS: NS IV 1000 ML 1,000 ML IV SCH (05:08)
[2022-11-09] MEDS: ENOXAPARIN 120 MG/0.8 ML SYRINGE SQ SCH (05:30)
[2022-11-09 06:03] LABS: BASOPHILS # (AUTO) 0.1 10^3/uL (0.0-0.1); BASOPHILS % (AUTO) 1 % (0-10); EOSINOPHILS # (AUTO) 0.4 10^3/uL (0.0-0.3); EOSINOPHILS % (AUTO) 4 % (0-10); HEMATOCRIT 40 % (35-52); HEMOGLOBIN 12.6 g/dL (11.5-16.0); LYMPHOCYTES # (AUTO) 3.6 10^3/uL (1.0-4.0); LYMPHOCYTES % (AUTO) 36 % (12-44); MEAN CORPUSCULAR HEMOGLOBIN 27 pg (25-34); MEAN CORPUSCULAR HGB CONC 31 g/dL (32-36); MEAN CORPUSCULAR VOLUME 86 fL (80-99); MEAN PLATELET VOLUME 10.6 fL (9.0-12.2); MONOCYTES # (AUTO) 0.6 10^3/uL (0.0-1.0); MONOCYTES % (AUTO) 6 % (0-12); NEUTROPHILS # (AUTO) 5.5 10^3/uL (1.8-7.8); NEUTROPHILS % (AUTO) 54 % (42-75); PLATELET COUNT 401 10^3/uL (130-400); WHITE BLOOD COUNT 10.2 10^3/uL (4.3-11.0)
[2022-11-09 06:15] LABS: ALBUMIN 3.7 GM/DL (3.2-4.5); BILIRUBIN,TOTAL 0.4 MG/DL (0.1-1.0); CALCIUM 8.8 MG/DL (8.5-10.1); CREATININE SERUM 1.07 MG/DL (0.60-1.30); MAGNESIUM 2.2 MG/DL (1.6-2.4)
[2022-11-09] MEDS: POTASSIUM CL 10MEQ/50ML IVPB 50 ML IV SCH (06:26)
[2022-11-09] MEDS: MAGNESIUM 1 GM/100 ML IVPB 100 ML IV SCH (06:27)
[2022-11-09] MEDS: POTASSIUM CHLORIDE 20 MEQ TABLET PO SCH (06:27)
[2022-11-09] MEDS ORDERED: LEVOTHYROXINE 100 MCG TABLET PO SCH (06:30)
--- NOTE | 2022-11-09 06:59 | Progress Note ---
Objective Exam Last Set of Vital Signs Vital Signs Date Time Temp Pulse Resp B/P (MAP) Pulse Ox O2 Delivery O2 Flow Rate FiO2 11/09/22 06:00 65 22 127/78 (94) 93 Room Air 11/08/22 20:00 36.2 Capillary Refill : I&O Intake and Output 11/09/22 00:00 Intake Total 1700 ml Output Total 450 ml Balance 1250 ml Intake Oral 1700 ml Output Urine Total 450 ml # Voids 9 # Urine Diapers 2 Results/Procedures Lab Laboratory Tests 11/09/22 05:08: White Blood Count 10.2, Red Blood Count 4.67, Hemoglobin 12.6, Hematocrit 40, Mean Corpuscular Volume 86, Mean Corpuscular Hemoglobin 27, Mean Corpuscular Hemoglobin Concent 31L, Red Cell Distribution Width 14.3, Platelet Count 401H, Mean Platelet Volume 10.6, Immature Granulocyte % (Auto) 1, Neutrophils (%) (Auto) 54, Lymphocytes (%) (Auto) 36, Monocytes (%) (Auto) 6, Eosinophils (%) (Auto) 4, Basophils (%) (Auto) 1, Neutrophils # (Auto) 5.5, Lymphocytes # (Auto) 3.6, Monocytes # (Auto) 0.6, Eosinophils # (Auto) 0.4H, Basophils # (Auto) 0.1, Immature Granulocyte # (Auto) 0.1, Sodium Level 138, Potassium Level 4.0, Chloride Level 109H, Carbon Dioxide Level 21, Anion Gap 8, Blood Urea Nitrogen 17, Creatinine 1.07, Estimat Glomerular Filtration Rate 56, BUN/Creatinine Ratio 16, Glucose Level 155H, Calcium Level 8.8, Corrected Calcium 9.0, Phosphorus Level 3.0, Magnesium Level 2.2, Total Bilirubin 0.4, Aspartate Amino Transf (AST/SGOT) 12, Alanine Aminotransferase (ALT/SGPT) 13, Alkaline Phosphatase 53, Total Protein 7.0, Albumin 3.7 Microbiology 11/08/22 MRSA Screen - Final, Complete MRSA not isolated Radiology CXR no acute abnormalities Assessment/Plan Assessment/Plan (1) Elevated troponin Status: Acute Assessment & Plan: Cardiology consulted, appreciate recommendations. (2) Paroxysmal atrial fibrillation with rapid ventricular response Status: Acute Assessment & Plan: Onset of RVR after admission, converted after cardizem drip initiation overnight. On amiodarone drip currently, appreciate Cardiology recommendations. (3) Paroxysmal atrial fibrillation Status: Chronic (4) Hyperlipidemia Status: Chronic (5) Hypertension Status: Chronic Qualifiers: Qualified Codes: I10 - Essential (primary) hypertension (6) Diabetes mellitus, type 2 Status: Chronic Qualifiers: Qualified Codes: E11.9 - Type 2 diabetes mellitus without complications (7) HERNÁN (obstructive sleep apnea) Status: Chronic (8) Morbid obesity Status: Chronic (9) DVT prophylaxis Status: Acute Assessment & Plan: Home anticoagulation Clinical Quality Measures AMI/AHF: ASA po Prior to arrival: CASSIE Jacobs MD Nov 09, 2022 06:59
[2022-11-09] MEDS ORDERED: THERAPEUTIC MULTIVITAMIN W/MINERALS TABLET PO SCH (07:00)
[2022-11-09] MEDS: dilTIAZem ER 240 MG CAPSULE PO SCH (08:00)
[2022-11-09] MEDS ORDERED: AMIO200T65 PO (08:05)
[2022-11-09] MEDS: ASPIRIN enteric coated 81MG TABLET PO SCH (08:06)
[2022-11-09] MEDS: PANTOPRAZOLE 40 MG TABLET PO SCH (08:06)
--- NOTE | 2022-11-09 08:07 | Cardiology Progress Note ---
Subjective Date Seen by Provider: Nov 09, 2022 Time Seen by Provider: 08:06 Subjective/Events-last exam Patient was seen at bedside, feeling better. No new complaint Objective-Cardiology Exam Last Set of Vital Signs Vital Signs 11/09/22 06:00 Pulse 65 Resp 22 B/P (MAP) 127/78 (94) Pulse Ox 93 O2 Delivery Room Air I&O Intake and Output 11/09/22 00:00 Intake Total 1700 ml Output Total 450 ml Balance 1250 ml Intake Oral 1700 ml Output Urine Total 450 ml # Voids 9 # Urine Diapers 2 General: Alert, Oriented X3, Cooperative HEENT: Atraumatic, PERRLA Neck: Supple, No JVD, No Thyromegaly Lungs: Clear to Auscultation, Normal Air Movement Heart: Regular Rate, Normal S1, Normal S2 Abdomen: Normal Bowel Sounds, Soft, No Tenderness, No Hepatosplenomegaly, No Masses Extremities: No Clubbing, No Cyanosis, No Edema, Normal Pulses, No Tenderness/Swelling Skin: No Rashes, No Breakdown, No Significant Lesion Neuro: Normal Gait, Normal Speech, Strength at 5/5 X4 Ext, Normal Tone, Sensation Intact Psych/Mental Status: Mental Status NL, Mood NL Results Lab Laboratory Tests 11/09/22 05:08 A/P-Cardiology Admission Diagnosis Chest pain Palpitation Non-ST elevation myocardial infarction Paroxysmal atrial fibrillation Assessment/Plan Chest pain, palpitation, mildly elevated troponin Patient has known Abnormal stress test May 2022 showing reversible ischemia involving the mid to apical inferior wall and mid anterior wall. SSS 7, SDS 7, TID 1.01. We will continue monitoring starting aspirin and Lovenox, planning for possible cardiac catheterization with IVUS to the left main in the future as an outpatient, I will arrange for it at a tertiary care center Palpitation, aroxysmal atrial fibrillation Was in atrial fibrillation with rapid ventricular response, converted to sinus rhythm on Cardizem drip I will load with amiodarone and switch her to amiodarone. History of loop monitor implantation April 2020 Patient is maintained on Eliquis We will arrange for discharge on amiodarone loading dose orally and follow-up as an outpatient Reports she is undergoing treatment for macular degeneration and is needing cataract surgery in the near future. 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 Coronary artery disease- Cardiac catheterization on 05/01/2018 revealing heavily calcified left main artery with 50 percent stenosis, nonobstructive disease. Was referred to Dr. Min for IVUS of LM and possible stenting and underwent catheterization May 20, 2018 and underwent 2.75x12 mm Promus Premier to OM. 30-40% stenosis of left main, confirmed by IVUS. [id number] Score of 5, yearly risk of stroke without oral anticoagulation is 6.7%, maintained on Eliquis 5 mg twice daily Echocardiogram was done on December 01, 2019 showing normal LV size with EF 50 percent, grade 1 diastolic dysfunction, left atrium mildly dilated, PA pressure 20-25 mmHg. repeat echo in March 2020 showing normal LV size, EF 45-50 percent, grade 1 diastolic dysfunction, mitral annular calcification, PA pressure 40-45 mmHg. I will evaluate 2D echo Diabetes mellitus, followed and managed by primary care physician Chronic renal insufficiency, continue to monitor renal function, followed by primary care physician Obesity, BMI 39, discussed weight loss and exercise Nonobstructive carotid artery stenosis per carotid duplex done in February 2022. Hypertension, restart home medication monitor blood pressure Hyperlipidemia, restart home medication monitor blood pressure Hypothyroidism, followed and managed by primary care physician EDDIE HURT MD Nov 09, 2022 08:07
[2022-11-09] MEDS ORDERED: NON-FORMULARY MEDICATION 1 EA EA (Cholecalciferol (Vitamin D3) (Vitamin D3) 25 MCG) PO SCH (09:00)
[2022-11-09] MEDS ORDERED: VITAMIN D3 25 MCG (1,000 UNITS) TABLET PO SCH (09:00)
[2022-11-09] MEDS ORDERED: VIBEGRON 75 MG PO SCH (09:00)
[2022-11-09] MEDS ORDERED: NON-FORMULARY MEDICATION 1 EA EA (Fenofibrate Nanocrystallized (Fenofibrate) 145 MG) PO SCH (09:00)
[2022-11-09] MEDS ORDERED: NON-FORMULARY MEDICATION 1 EA EA (Vit C/E/Zn/Coppr/Lutein/Zeaxan (Preservision Areds 2 Sof PO SCH (09:00)
[2022-11-09] MEDS ORDERED: NON-FORMULARY MEDICATION 1 EA EA (Levothyroxine Sodium 200 MCG) PO SCH (09:00)
--- NOTE | 2022-11-09 10:26 | Discharge Summary ---
Discharge Summary Hospital Course Problems/Diagnosis: (1) Elevated troponin Status: Acute Assessment & Plan: Cardiology consulted, known abnormal stress test May 2022 with reversible ischemia mid to apical inferior wall and mid anterior wall. Planning for arrangement of cardiac catheterization with IVUS to the left main in future as an outpatient. (2) Paroxysmal atrial fibrillation with rapid ventricular response Status: Acute Assessment & Plan: Onset of RVR after admission, converted after cardizem drip initiation overnight. Loaded with amiodarone and prescribed per Cardiology on d/c. (3) Paroxysmal atrial fibrillation Status: Chronic (4) Hyperlipidemia Status: Chronic (5) Hypertension Status: Chronic Qualifiers: Qualified Codes: I10 - Essential (primary) hypertension (6) Diabetes mellitus, type 2 Status: Chronic Qualifiers: Qualified Codes: E11.9 - Type 2 diabetes mellitus without complications (7) HERNÁN (obstructive sleep apnea) Status: Chronic (8) Morbid obesity Status: Chronic Hospital Course Date of Admission: Nov 08, 2022 at 13:08 Admission Diagnosis : Family Physician/Provider: Chandrika Morales MD Date of Discharge: 11/09/22 Discharge Diagnosis: See problem list Hospital Course: See problem list Labs and Pending Lab Test: Laboratory Tests 11/09/22 05:08: White Blood Count 10.2, Red Blood Count 4.67, Hemoglobin 12.6, Hematocrit 40, Mean Corpuscular Volume 86, Mean Corpuscular Hemoglobin 27, Mean Corpuscular Hemoglobin Concent 31L, Red Cell Distribution Width 14.3, Platelet Count 401H, Mean Platelet Volume 10.6, Immature Granulocyte % (Auto) 1, Neutrophils (%) (Auto) 54, Lymphocytes (%) (Auto) 36, Monocytes (%) (Auto) 6, Eosinophils (%) (Auto) 4, Basophils (%) (Auto) 1, Neutrophils # (Auto) 5.5, Lymphocytes # (Auto) 3.6, Monocytes # (Auto) 0.6, Eosinophils # (Auto) 0.4H, Basophils # (Auto) 0.1, Immature Granulocyte # (Auto) 0.1, Sodium Level 138, Potassium Level 4.0, Chloride Level 109H, Carbon Dioxide Level 21, Anion Gap 8, Blood Urea Nitrogen 17, Creatinine 1.07, Estimat Glomerular Filtration Rate 56, BUN/Creatinine Ratio 16, Glucose Level 155H, Calcium Level 8.8, Corrected Calcium 9.0, Phosphorus Level 3.0, Magnesium Level 2.2, Total Bilirubin 0.4, Aspartate Amino Transf (AST/SGOT) 12, Alanine Aminotransferase (ALT/SGPT) 13, Alkaline Phosphatase 53, Total Protein 7.0, Albumin 3.7 Microbiology 11/08/22 MRSA Screen - Final, Complete MRSA not isolated Home Meds Active Amiodarone HCl 200 Mg Tablet 200 Mg PO UD Take 2 tablet twice daily for 2 weeks then 1 tablet twice daily Reported Trulicity (Dulaglutide) 4.5 Mg/0.5 Ml Pen.injctr 4.5 Mg SQ TESSA Vitamin D3 (Cholecalciferol (Vitamin D3)) 25 Mcg (1000 Unit) Capsule 25 Mcg PO DAILY Tramadol HCl 50 Mg Tablet 100 Mg PO DAILY TAKES 2 (50MG) TABS Tramadol HCl 50 Mg Tablet 50 Mg PO HS Preservision Areds 2 Softgel (Vit C/E/Zn/Coppr/Lutein/Zeaxan) 250MG-90MG Capsule 1 Each PO DAILY Eliquis (Apixaban) 5 Mg Tablet 5 Mg PO BID Fenofibrate (Fenofibrate Nanocrystallized) 145 Mg Tablet 145 Mg PO DAILY Gemtesa (Vibegron) 75 Mg Tablet 75 Mg PO DAILY Farxiga (Dapagliflozin Propanediol) 10 Mg Tablet 10 Mg PO DAILY Tramadol HCl 50 Mg Tablet 50 Mg PO DAILY PRN Levothyroxine Sodium 200 Mcg Tablet 200 Mcg PO DAILY Tresiba Flextouch U-100 (Insulin Degludec) 100 Unit/Ml (3 Ml) Insuln.pen 25 Unit SC HS Metoprolol Succinate 25 Mg Tab.er.24h 25 Mg PO DAILY Imipramine HCl 50 Mg Tablet 50 Mg PO HS Assessment/Pt DC Instructions Follow up with Cardiology as directed. Follow up with primary doctor within one to two weeks of discharge. Discharge Diet: Cardiac Diet Discharge Physical Examination Allergies: Coded Allergies: naproxen (Verified Adverse Reaction, Unknown, DECREASES KIDNEY FUNCTION, 06/04/20) General Appearance: No Apparent Distress Respiratory: Lungs Clear, Normal Breath Sounds Cardiovascular: Regular Rate, Rhythm, No Murmur Gastrointestinal: Normal Bowel Sounds, Non Tender, Soft Extremity: No Pedal Edema Skin: Warm/Dry Neurologic/Psychiatric: Alert, Normal Mood/Affect Clinical Quality Measures AMI/AHF: ASA po Prior to arrival: CASSIE Jacobs MD Nov 09, 2022 10:26
--- NOTE | 2022-11-14 03:40 | Physician Query Clarification ---
PQ-Intro New Diagnosis Admission/Discharge Admission Date: Nov 08, 2022 at 13:08 Discharge Date: Nov 09, 2022 at 11:40 The medical record reflects the following clinical scenario: History/Risk Factors: A 67 years old female patient admitted with chest pain, palpitations and mildly elevated troponin found to have paroxysmal atrial fibrillation, NSTEMI was documented in medical record. Hand P, 11/08: elevated troponin, paroxysmal atrial fibrillation. Tele- ICU progress notes, 11/08: Atrial fibrillation, NSTEMI. Clinical Findings: Troponin - 0.052 h, bnp - 147.8 h Treatment:Aspirin, Levonox, planning outpatient catheterization. Question: What condition best reflects the above clinical scenario? Please document a response in the Progress Noter or Discharge Summary. 1. NSTEMI 2. Elevated troponin only 3. Other, with explanation of the clinical findings. 4. Clinically undetermined, no explanation for the clinical findings. PHYSICIAN RESPONSE What condition reflects above: 1 In responding to this query, please exercise your independent professional judgment. The purpose of this communication is to more accurately reflect the complexity of your patients condition. The fact that a question is asked does not imply that any particular answer is desired or expected. Thank you for your timely response to this clarification. Requestors name: [ ] Phone # [ ] THIS PHYSICIAN QUERY FORM IS A PERMANENT PART OF THE MEDICAL RECORD GAVINO SILVERMAN Nov 14, 2022 03:39 CASSIE BRYSON MD Nov 15, 2022 10:20
== END 2022-11-09 11:40 | disposition home or self-care (01) | DRG 281 ==
LOC: EDUNIT# 12:11 → ER 12:14 → 4TH 15:55 → CSD 17:29 → ICU 11-08 00:53 → OBSVTOIN 11-08 13:08
PROVIDERS: ADMIT Family Medicine; ATTEND Family Medicine
DX: I48.0 Paroxysmal atrial fibrillation (principal); I21.4 Non-ST elevation (NSTEMI) myocardial infarction; I25.110 Atherosclerotic heart disease of native coronary artery with unstable angina pectoris; E78.00 Pure hypercholesterolemia, unspecified; M19.90 Unspecified osteoarthritis, unspecified site; G89.29 Other chronic pain; M54.9 Dorsalgia, unspecified; Z79.4 Long term (current) use of insulin; Z79.899 Other long term (current) drug therapy; Z79.01 Long term (current) use of anticoagulants; E03.9 Hypothyroidism, unspecified; F41.9 Anxiety disorder, unspecified; H35.30 Unspecified macular degeneration; F32.A Depression, unspecified; G47.33 Obstructive sleep apnea (adult) (pediatric); E66.01 Morbid (severe) obesity due to excess calories; R77.8 Other specified abnormalities of plasma proteins; N18.9 Chronic kidney disease, unspecified; E11.22 Type 2 diabetes mellitus with diabetic chronic kidney disease; I12.9 Hypertensive chronic kidney disease with stage 1 through stage 4 chronic kidney disease, or unspecified chronic kidney disease; I65.29 Occlusion and stenosis of unspecified carotid artery; Z68.39 Body mass index [BMI] 39.0-39.9, adult
CPT/HCPCS: 36415; 71045; 80053; 83735; 83874; 83880; 84100; 84484; 85025; 85610; 85730; 87081; 93005; 93041; 93306; G0378